=== PATIENT | female | born 1985 | race Caucasian/White ===

== ENCOUNTER → 2024-06-18 | Outpatient (CLI) | payer OTHER, SELFPAY ==
[2024-06-18 12:21] LABS: Absolute Lymphocyte Count 1.05 X10^3/uL (0.83-4.51); Absolute Neutrophil Count 7.1 X10^3/uL (2.0-7.7); Basophil# 0.08 X10^3/uL; Basophil% 0.9 % (0-1); Eosinophil# 0.08 X10^3/uL; Eosinophils% 0.9 % (0-5); Hematocrit 41.7 % (37-47); Hemoglobin 13.9 g/dL (12.0-15.0); Lymphocyte # 1.05 X10^3/ul (0.83-4.51); Lymphocyte % 11.6 % (19-41); Mean Corp Hgb Conc 33.3 g/dL (32-36); Mean Corpuscular Hgb 32.4 pg (27.0-32.0); Mean Corpuscular Volume 97.2 fL (81-99); Mean Platelet Vol. 10.4 fl (6.2-12.0); Monocyte# 0.73 X10^3/uL; Monocyte% 8.1 % (0-10); NRBC Flagged by Analyzer 0 % (0-5); Neutrophil # 7.06 X10^3/uL (2.7-7.7); Neutrophil % 78.1 % (47-70); Platelet Count 257 K/mm3 (150-450); RBC Distribution Width SD 45.9 fl (35.1-43.9); Red Blood Count 4.29 M/mm3 (4.2-5.4)
[2024-06-18 13:38] LABS: ALB/GLOB Ratio 1.8 RATIO (0.9-2.4); AST(SGOT) 15 U/L (<=31); Alanine Aminotransfer ALT/SGPT 18 U/L (<=34); Albumin, Serum 4.4 g/dL (3.5-5.0); Alkaline Phosphatase 53 U/L (35-104); Anion Gap 12 (5-15); BUN 14 mg/dL (4-19); BUN/Creat Ratio 17.1 RATIO (10-20); Calcium,Total 9.3 mg/dL (7.6-11.0); Carbon Dioxide 24.9 mmol/L (21.0-32.0); Chloride 105 mmol/L (98-108); Creatinine, Serum 0.82 mg/dL (0.70-1.20); EST Glomerular Filtration Rate 94 (>60); Globulin 2.4 g/dL (2.2-4.2); Glucose 74 mg/dL (70-99); Potassium 3.9 mmol/L (3.3-5.1); Protein, Total 6.8 g/dL (5.9-8.4); Sodium Level 142 mmol/L (133-145); Total Bilirubin 1.34 mg/dL (0.00-1.30)
== END | disposition home or self-care (01) ==
PROVIDERS: PCP Physician Assistant; Referring Provider Nurse Practitioner Family; Visit Provider Nurse Practitioner Family
DX: Z13.29 Encounter for screening for other suspected endocrine disorder (principal)
CPT/HCPCS: 36415; 80053; 84439; 84443; 85025; 87624; 88175; G0145

== ENCOUNTER → 2024-06-23 | Outpatient (CLI) | payer OTHER, SELFPAY ==
--- NOTE | 2024-06-23 16:30 | US_ITS ---
EXAM: Pelvic ultrasound CLINICAL HISTORY: Infertility COMPARISON: None available TECHNIQUE: Transabdominal and transvaginal scanning. FINDINGS: Uterus is unremarkable with no focal masses, anteverted, measuring 7.8 x 4.6 x 3.6 cm. Bilateral ovaries are normal with preserved symmetric vascular flow. No fluid in the cul-de-sac. Endometrium is unremarkable measuring 5 mm. Cervix is normal. No intrauterine device. Bladder is normal. US/Pelvic w/ Transvaginal IMPRESSION: No suspicious sonographic findings. Reading Location: [facility]
== END | disposition home or self-care (01) ==
LOC: US 16:26
PROVIDERS: PCP Physician Assistant; Referring Provider Nurse Practitioner Family; Visit Provider Nurse Practitioner Family
DX: Z31.9 Encounter for procreative management, unspecified (principal)
CPT/HCPCS: 76830; 76856

== ENCOUNTER → 2024-12-21 | Outpatient (CLI) | payer OTHER, SELFPAY ==
[2024-12-24 10:08] LABS: Chlamydia By Nucleic Acid AMP Negative (Negative); Gonococcus By Nucleic Acid AMP Negative (Negative)
[2024-12-25 16:09] LABS: HPV APTIMA, High Risk Negative (Negative)
== END | disposition home or self-care (01) ==
LOC: LABSPEC 16:16
PROVIDERS: PCP Physician Assistant; Referring Provider Obstetrics & Gynecology; Visit Provider Obstetrics & Gynecology
DX: O09.90 Supervision of high risk pregnancy, unspecified, unspecified trimester (principal); Z12.4 Encounter for screening for malignant neoplasm of cervix; Z3A.00 Weeks of gestation of pregnancy not specified
CPT/HCPCS: 87086; 87088; 87491; 87591; 87624; 88175; G0145

== ENCOUNTER 2024-12-25 09:04 | Outpatient (CLI) | payer OTHER, SELFPAY ==
[2024-12-25 09:21] VITALS: BP 103/48; PULSE 60; RESP 16; TEMP 36.3; O2SAT 100; BMI 26.2
--- OUTSIDE RECORDS SUMMARY | 2024-12-25 09:26 | XMS RPT_ITS | CCD ---
Author Organization [facility] Care Team Providers Care Water Aerobics Instructor Name Role Phone ANGEL PENNY Unavailable Unavailable PROVIDER, UNKNOWN Unavailable Unavailable GALNIMESH, ANGEL Unavailable Unavailable CONRAD THOMPSON Primary Care Unavailable MIMA ADAN Attending Unavailable CONRAD THOMPSON Primary Care Unavailable Unavailable Primary Care Provider Unavailabl e GALEHOUSE, ANGEL Mandujano Primary Care Unavailable GALOUSE, ANGEL Mandujano Primary Care Unavailable SHARYN CAT MD Attending Unavailable GALEHOUSE, ANGEL Mandujano Primary Care Unavailable COLIN STEIN MD Attending Unavaila COLIN Wlikins MD Attending Unavaila ble GALOUSE, ANGEL Mandujano Primary Care Unavailable GALEHOUSE, ANGEL Mandujano Primary Care Unavailable COLIN STEIN MD Attending Unavaila ble GALLAM, ANGEL Mandujano Primary Care Unavailable TERRANCE KAUFFMAN Referring Unavailable TERRANCE KAUFFMAN Attending Unavailable GALEHOUSE, ANGEL Mandujano Primary Care Unavailable SHARYN CAT MD Attending Unavailable [facility]HOUSE [facility][id number] Referring Unavailable ANGEL LEE~[id number], ANGEL ACEVEDO Attend ing Unavailable ANGEL LEE~[id number], ANGEL ACEVEDO Admitt ing Unavailable AA NO PCP, NO PCP Primary Care Unavailable [facility] Angel ADAMS Primary Care Provide r Patsy Candelario Attending Provider Angel Campbell Primary Care Provider Patsy Candelario Referring Provider [phone] Angel Penny PA-C [facility] Provider [place] PA, Angel Referring Provider Dr. Brandie Watt MD Attending Provider Brandie Watt Attending Unavailable Galehouse PA, Angel Primary Care Unavailable [place]alehouse PA, Angel Referring Unavailable Patsy Mcpherson Attending Unavailable [place]alehouse PA, Angel Referring Unavailable Lauren Butts Attending Unavailable [place]house PA, Angel Primary Care Unavailable Patsy Mcpherson Referring Unavailable Galehouse PA, Angel Primary Care Unavailable Patsy Mcpherson Attending Unavailable [place] PA, Angel Primary Care Unavailable Vande Maty, Aleena Attending Unavailabl e Galehouse PA, Angel Referring Unavailable [place]alehouse PA, Angel Primary Care Unavailable Aleena Troy Attending Unavailabl e Vande Velshruthi, Aleena Referring Unavailabl e Galehouse PA, Angel Primary Care Unavailable Lu Rutledge, Aleena Attending Unavailabl e Lu Rutledge, Aleena Referring Unavailabl e Patsy Mcpherson Attending Unavailable Patsy Mcpherson Referring Unavailable Galehouse PA, Angel Primary Care Unavailable Medications Current Medications Medication Drug Class(es) Dates Sig (Normalized) Sig (Original) cyclobenzaprine hydrochloride 10 mg oral tablet (1 source) Muscle Relaxant Start: 09-30-2024 take 1 tablet by mouth three times daily as needed for muscle spasms cyclobenzaprine (Flexeril) 10 mg tablet Indications: Acute right-sided low back pain with right-sided sciatica Take 1 tablet (10 mg) by mouth 3 times a day as needed for muscle spasms for up to 20 doses. 20 tablet 09/30/2024 Active Start: 09-30-2024 take 1 tablet by isela th three times daily as needed for muscle spasms cyclobenzaprine (Flexeril) 10 mg tablet Indications: Acute right-sided low back pain with right-sided sciatica Take 1 tablet (10 mg) by mouth 3 times a day as needed for muscle spasms for up to 20 doses. 20 tablet 09/30/2024 Active docosahexaenoic acid 200 mg oral capsule (3 sources) Start: 06-18-2024 Docosahexaenoic Acid ( Dha) 200 mg capsule Active mg PO June 18, 2024 12:00am 21 day ethinyl estradiol 0.549002 mg/hr / etonogestrel 0.005 mg/hr vaginal system (7 sources) Progestin, Estrogen End: 07-27-2023 etonogestreL-ethiny l estradioL (Nuvaring) 0.12-0.015 mg/24 hr vaginal ring Insert 1 each into the vagina every 28 (twenty-eight) days. 07/27/2023 Discontinued (Therapy completed) fluticasone propionate 0.05 mg/actuat metered dose nasal spray (1 source) Corticosteroid Start: 12-08-2024 take 50 ug nasal route once daily Fluticasone Propionate (Flonase Allergy Relief) 50 mcg/actuation spray,suspension Active 1 NMA INTRANASAL daily December 08, 2024 12:00am administer into each nostril meloxicam 15 mg oral tablet (2 sources) Nonsteroidal Anti-inflammatory Drug Start: 04-22-2023 End: 06-21-2023 take 1 tablet by mouth once daily meloxicam (Mobic) 15 mg tablet Indications: Femoral acetabular impingement Take 1 tablet (15 mg) by mouth once daily. 30 tablet 1 04/22/2023 06/21/2023 Active pantoprazole 20 mg delayed release oral tablet (12 sources) Proton Pump Inhibitor take 2 tablets by mouth once daily pantoprazole (ProtoNix) 20 mg EC tablet Take 2 tablets (40 mg) by mouth once daily. Active predniSONE 10 mg oral tablet (1 source) Start: 09-30-2024 predniSONE (Deltasone) 10 mg tablet Indications: Acute right-sided low back pain with right-sided sciatica Take 3 tabs by mouth on days 1-3; then take 2 tabs by mouth on days 4-6; then take 1 tab by mouth on days 7-9. 20 tablet 09/30/2024 Active Start: 09-30-2024 predniSONE (De ltasone) 10 mg tablet Indications: Acute right-sided low back pain with right-sided sciatica Take 3 tabs by mouth on days 1-3; then take 2 tabs by mouth on days 4-6; then take 1 tab by mouth on days 7-9. 20 tablet 09/30/2024 Active Completed/Discontinued Medications Medication Drug Class(es) Dates Sig (Normalized) Sig (Original) Lidocaine (4 sources) Antiarrhythmic, Amide Local Anesthetic Start: 06-12-2024 End: 06-12-2024 lidocaine (Xylocaine) 10 mg/mL (1 %) injection 1 mL Start: 06-12-2024 End: 06-12-2024 1 mL, injection, Once PRN Pr ocedure, Starting on Sat06/12/24 at 0937, For 1 dose Start: 06-10-2023 End: 06-10-2023 lidocaine (Xylocaine) 10 mg/ mL (1 %) injection 2 mL 1 ml triamcinolone acetonide 40 mg/ml injection (4 sources) Corticosteroid Start: 06-12-2024 End: 06-12-2024 triamcinolone acetonide (Kenalog-40) injection 40 mg Start: 06-12-2024 End: 06-12-2024 40 mg, intra-articular, Once PRN Procedure, Starting on Sat06/12/24 at 0937, For 1 dose Start: 06-10-2023 End: 06-10-2023 triamcinolone acetonide (Bismark alog-40) injection 80 mg Problems Active Problems Problem Classification Problem Date Documented Da te Episodic/Chronic Abdominal pain (2 sources) Unspecified abdominal pain; Translations: [Unspecified abdominal pain] Onset: Episodic Esophageal disorders (1 source) Gastroesophageal reflux disease; Translations: [Gastro-esophageal reflux disease without esophagitis] 12-08-2024 Chronic Esophageal disorders (1 source) Esophagitis; Translations: [Esophagitis] Onset: 3 Episodic Female infertility (1 source) Female infertility; Translations: [Female infertility, unspecified] 08-25-2024 Chronic Other complications of (1 source) Supervision of high risk , unspecified, unspecified trimester; Translations: [Supervision of high risk , unspecified, unspecified trimester] Onset: 5 Episodic Other connective tissue disease (1 source) Disorder of tendon; Translations: [Unspecified disorder of synovium and tendon, right thigh] 07-24-2023 Episodic Other connective tissue disease (4 sources) Lateral epicondylitis of right humerus; Translations: [Lateral epicondylitis, right elbow] 03-23-2024 Episodic Other gastrointestinal disorders (1 source) Dysphagia, unspecified; Translations: [Dysphagia, unspecified type] Onset: 3 Episodic Other liver diseases (3 sources) Increased bilirubin level; Translations: [Unspecified jaundice] 06-18-2024 Episodic Other non-traumatic joint disorders (1 source) Pain in right hip joint; Translations: [Pain in right hip] 04-22-2023 Episodic Other non-traumatic joint disorders (2 sources) Femoral acetabular impingement; Translations: [Other specified joint disorders, unspecified hip] 04-22-2023 Episodic Other non-traumatic joint disorders (4 sources) Pain in elbow; Translations: [Pain in right elbow] 03-20-2024 Episodic Other screening for suspected conditions (not mental disorders or infectious disease) (2 sources) Encounter for screening for malignant neoplasm of cervix; Translations: [Encounter for screening for other suspected endocrine disorder] Onset: 5 Episodic Spondylosis; intervertebral disc disorders; other back problems (2 sources) Acute back pain with sciatica; Translations: [Lumbago with sciatica, right side] 09-30-2024 Episodic Past or Other Problems Problem Classification Problem Date Documented Da te Episodic/Chronic Contraceptive and procreative management (6 sources) Patient encounter status; Translations: [Encounter for procreative management, unspecified] Onset: 06-29-2024 06-18-2024 Episodic Other connective tissue disease (11 sources) Trochanteric bursitis of left hip; Translations: [Trochanteric bursitis, left hip] Onset: 07-17-2023 06-10-2023 Episodic Unclassified (3 sources) Onset: 04-14-2024 04-14-2024 Results Test Name Value Interpretation Reference Range Facility Showroom Consultant Office Visit Reporton 12-21-2024 Showroom Consultant Office Visit Report [facility] [address], [address] [place] [address] OFFICE VISIT Date of Service: 12/21/24 MR#: [id number] Acct: [id number] Name: CORBY HENDRICKSON Rep #: [id number] : 1985 Provider: Dr. Aleena Solis DO Age/Sex: 39/F [place] [facility] [place] Status: Signed Intake Vital Signs 06/18/24 08:44 12/08/24 09:59 12/21/24 14:21 Height 4 ft 11 in 4 ft 11 in 4 ft 11 in Weight: 127 lb 6 oz BMI 25.7 BP 111/75 Intake Visit Reasons: *EST* NOB LMP 10/24, [place] 07/31 Chief Complaint: New OB Lathe Sander Required: No Is patient in pain?: No Allergies No Known Allergies Allergy (Verified 12/21/24 14:23) Medications ???Medication ???Instructions ???Recorded ???Confirmed ???Type docosahexaenoic acid 200 mg mg PO 06/18/24 12/21/24 History capsule ( DHA) fluticasone propionate 50 1 spray intranasal QDAY 12/08/24 0 12/21/24 History mcg/actuation nasal spray,suspension (Flonase Allergy Relief) famotidine 20 mg tablet (Pepcid) 20 mg PO BID #60 tabs 12/21/24 Rx ondansetron 4 mg disintegrating 4 mg PO Q6H PRN nausea and 5 12/21/24 Rx tablet vomiting #30 tabs Last Menstrual Period: 10/24/24 : No PFSH PFSH Medical History Seasonal allergies Former smoker Infertility, female Surgical History H/O LEEP History of carpal tunnel release Family History Mother Hypertension Father Hypertension Sister Diabetes Social History adopted: No household members: spouse number of children: 0 current occupational status: employed 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 current occupational exposures/hazards: No pets and animals: Yes (Not managing litterbox) pets and animals: cat(s) and dog(s) history of recent travel: Yes ( - October 2024) out of state: Yes out of country: No sexually active: Yes Smoking Status: Former smoker how long ago did patient quit smokin-12years ago second hand exposure: No quit status: quit date established alcohol intake: current alcohol intake frequency: holidays/special occasions only Alcohol type: hard liquor details: Not while substance use type: does not use diet: gluten free and lactose free well-balanced diet: daily or most days caffeine: Yes Type: coffee Number of servings: 1 eating out: rarely or never during the past year weight has: remained stable what type of physical activity do you participate in: running and other details: Training for [employer] nov frequency: 5-6 times per week armando/denominational: None seatbelt use: always do you feel safe at home: Yes additional social history: : Alexandre - [employer] History 1 Elective abortions Hx Para 0 Spontaneous abortions Hx # Term Pregnancies Ectopic pregnancies Hx # Pregnancies Multiple births # of living children HPI *EST* NOB LMP 10/24, [place]AV[place] 07/31 Details: CORBY HENDRICKSON is a 39 year old who presents for New OB visit. OB Visit [place] Calculator Estimated Delivery Date Method Current WG Current Estimate 07/31/25 LMP (Certain) 8w 2d Other Estimates 07/26/25 Ultrasound #1 9w 0d Estimated Due Date: 07/31/25 Expected Delivery Route/Plan Labor Preferences- CB/BF classes: [] labor support person: [] labor intervention preferences: [] pain management options preferred: [] cut cord/dad catch: [] : [] PP control planned: [] discussed possible routes of delivery and associated risks: [] special requests: [] Specific Issue/Plans Covid status: [] Flu vaccine: [] Tdap vaccine: [] Rhogam: [] LARC form signed: [] Problem list reviewed and updated with the most current plan of care details and appropriate orders placed. Relevant counseling for the gestational age provided. Continue routine care and follow up unless otherwise noted in visit notes/problem list details Initial Weight: Not Recorded Date -???-???-???-???-???-???- ???-???-???-???-???-???- EGA Weight BP Urine Prot -???-???-???-???-???-???- ???-???-???-???-???-???- Glucose FHR FuHt Pres Dilation -???-???-???-???-???-???- ???-???-???-???-???-???- Effaced St Visit Note 12/21/24 -???-???-???-???-???-???- ???-???-???-???-???-???- 8w 2d 127 lb 6 oz 111/75 -???-???-???-???-???-???- ???-???-???-???-???-???- 163 -???-???-???-???-???-???- ???-???-???-???-???-???- JV- CRL cons istent with LMP. unsure if desires NIPT. planning to run a marathon this weekend. Menstrual History Last Menstrual Period: 10/24/24 On hormonal BC at conception (more content not included)... Normal [facility] Office Visit Reporton 2024 Office Visit Report [facility] [address] [place] [address] OFFICE VISIT Date of Service: 12/08/24 MR#: [id number] Acct: [id number] Patient: CORBY HENDRICKSON Rep #: [id number] : 1985 Provider: Dr. Brandie wakefield MD Age/Sex: 39/F [place] [facility] [place] Status: Signed Intake Vital Signs 06/18/24 08:44 12/08/24 09:59 Height 4 ft 11 in 4 ft 11 in Weight: 131 lb 6 oz 128 lb 9 oz BMI 26.5 25.9 BP 116/77 112/68 Intake Visit Reasons: PNOB Vitals Education Allergies No Known Allergies Allergy (Verified 12/08/24 09:10) Medications ???Medication ???Instructions ???Recorded ???Confirmed ???Type docosahexaenoic acid 200 mg mg PO 06/18/24 12/08/24 History capsule ( DHA) fluticasone propionate 50 1 spray intranasal QDAY 12/08/24 0 12/08/24 History mcg/actuation nasal spray,suspension (Flonase Allergy Relief) Is last menstrual period known: Yes Post menopausal: No Patient : Yes Nurse's Note: Pt here for secondary amenorrhea. Vitals WNL. PNOB questions completed. Problem list, allergies, and medications updated. First trimester ACOG education completed. Assessment and Plan Assessment and Plan (1) Supervision of high-risk : Status: Acute Comment: , GAVIOTA 07/31/25, : Alexandre (2) : Status: Acute Comment: Discussed genetic/carrier testing - undecided (3) AMA (advanced maternal age) primigravida 35+: Status: Acute (4) GERD (gastroesophageal reflux disease): Status: Acute Comment: Self weaned off all meds Orders: Orders CBC W/Diff, Automated 12/08/24 O09.90 - Supervision of high risk , unspecified, unspecified trimester Type Screen 12/08/24 O09.90 - Supervision of high risk , unspecified, unspecified trimester Rubella IgG 12/08/24 O09.90 - Supervision of high risk , unspecified, unspecified trimester Hepatitis C Antibody 12/08/24 O09.90 - Supervision of high risk , unspecified, unspecified trimester Hepatitis B Surface Antigen 12/08/24 O09.90 - Supervision of high risk , unspecified, unspecified trimester Culture, Urine 12/08/24 O09.90 - Supervision of high risk , unspecified, unspecified trimester Syphilis Antibodies 12/08/24 O09.90 - Supervision of high risk , unspecified, unspecified trimester Chlamydia/GC CALIN aptima 12/08/24 O09.90 - Supervision of high risk , unspecified, unspecified trimester HIV 12/08/24 O09.90 - Supervision of high risk , unspecified, unspecified trimester PAP IG HPV APTIMA 16/18,45 12/08/24 Z12.4 - Encounter for screening for malignant neoplasm of cervix 12/12/24 0139 Date [facility]: Date (if applicable) CC: Normal [facility] CBC (INCLUDES DIFF/PLT)on Basophils (Bld) [#/Vol] 0.062 10*3/uL Normal 0-200 [facility] Comment on above: Performed By: #### 7 600, 6399, 72536 #### [facility] of [place] [address] County Engineer: Jeffery Ibarra MD Basophils/100 WBC (Bld) 1.1 % Normal [facility] Comment on above: Performed By: #### 7 600, 6399, 75586 #### [facility] [place] [address] County Engineer: Jeffery Ibarra MD Eosinophils (Bld) [#/Vol] 0.101 10*3/uL Normal 15-500 [facility] Comment on above: Performed By: #### 7 600, 6399, 86161 #### [facility] [place] [address] County Engineer: Jeffery Ibarra MD Eosinophils/100 WBC (Bld) 1.8 % Normal [facility] Comment on above: Performed By: #### 7 600, 6399, 12819 #### [facility] [place] [address] County Engineer: Jeffery Ibarra MD Erythrocyte distribution width (RBC) [Ratio] 12.5 % Normal 11.0-15.0 [facility] Comment on above: Performed By: #### 7 600, 6399, 53838 #### [facility] [place] [address] County Engineer: Jeffery Ibarra MD Hematocrit (Bld) [Volume fraction] 42.5 % Normal 35.0-45.0 [facility] Comment on above: Performed By: #### 7 600, 6399, 02179 #### [facility] of [address], [address] [place] [address] County Engineer: Jeffery Ibarra MD Hemoglobin (Bld) [Mass/Vol] 13.9 g/dL Normal 11.7-15.5 [facility] Comment on above: Performed By: #### 7 600, 6399, 61579 #### [facility] of [address], [address] [place] [address] County Engineer: Jeffery Ibarra MD Lymphocytes (Bld) [#/Vol] 1.215 10*3/uL Normal 850-3900 [facility] Comment on above: Performed By: #### 7 600, 6399, 18194 #### [facility] of [address], [address] [place] [address] County Engineer: Jeffery Ibarra MD Lymphocytes/100 WBC (Bld) 21.7 % Normal [facility] Comment on above: Performed By: #### 7 600, 6399, 70698 #### [facility] of [address], [address] [place] [address] County Engineer: Jeffery Ibarra MD MCH (RBC) [Entitic mass] 32.5 pg Normal 27.0-33.0 [facility] Comment on above: Performed By: #### 7 600, 6399, 99742 #### [facility] of [address], [address] [place] [address] County Engineer: Jeffery Ibarra MD MCHC (RBC) [Mass/Vol] 32.7 g/dL Normal 32.0-36.[address] [facility] Comment on above: Result Comment: For adults, a slight decrease in the calculated MCHC value (in the range of 30 to 32 g/dL) is most likely not clinically significant; however, it should be interpreted with caution in correlation with other red cell parameters and the patient's clinical condition. Performed By: #### 7 600, 6399, [id number] #### [facility] of [address], [address] [place] [address] County Engineer: Jeffery Ibarra MD MCV (RBC) [Entitic vol] 99.3 fL Normal 80.0-100.0 [facility] Comment on above: Performed By: #### 7 600, 6399, 22197 #### [facility] [place] [address] County Engineer: Jeffery Ibarra MD Monocytes (Bld) [#/Vol] 0.353 10*3/uL Normal 200-950 [facility] Comment on above: Performed By: #### 7 600, 6399, 66008 #### [facility] [place] [address] County Engineer: Jeffery Ibarra MD Monocytes/100 WBC (Bld) 6.3 % Normal [facility] Comment on above: Performed By: #### 7 600, 6399, 67242 #### [facility] [place] [address] County Engineer: Jeffery Ibarra MD Neutrophils (Bld) [#/Vol] 3.87 10*3/uL Normal 5654-1432 [facility] Comment on above: Performed By: #### 7 600, 6399, 78486 #### [facility] [place] [address] County Engineer: Jeffery Ibarra MD Neutrophils/100 WBC (Bld) 69.1 % Normal [facility] Comment on above: Performed By: #### 7 600, 6399, 82979 #### [facility] [place] [address] County Engineer: Jeffery Ibarra MD Platelet mean volume (Bld) [Entitic vol] 10.2 fL Normal 7.5-12.5 [facility] Comment on above: Performed By: #### 7 600, 6399, 04336 #### [facility] [place] [address] County Engineer: Jeffery Ibarra MD Platelets (Bld) [#/Vol] 223 10*3/uL Normal 140-400 [facility] Comment on above: Performed By: #### 7 600, 6399, 23837 #### [facility] [place] [address] County Engineer: Jeffery Ibarra MD RBC (Bld) [#/Vol] 4.28 10*6/uL Normal 3.80-5.10 [facility] Comment on above: Performed By: #### 7 600, 6399, 91264 #### [facility] [place] [address] County Engineer: Jeffery Ibarra MD WBC (Bld) [#/Vol] 5.6 10*3/uL Normal 3.8-10.8 [facility] Comment on above: Performed By: #### 7 600, 6399, 60596 #### [facility] [place] [address] County Engineer: Jeffery Ibarra MD COMPREHENSIVE METABOLIC PANE [facility] 10-28-2024 Albumin [Mass/Vol] 4.4 g/dL Normal 3.6-5.1 [facility] Comment on above: Performed By: #### 7 600, 6399, 58149 #### [facility] [place] [address] County Engineer: Jeffery Ibarra MD Albumin/Globulin [Mass ratio] 2.2 {ratio} Normal 1.0-2.5 [facility] Comment on above: Performed By: #### 7 600, 6399, 88299 #### [facility] [place] [address] County Engineer: Jeffery Ibarra MD ALP [Catalytic activity/Vol] 38 U/L Normal 31-125 [facility] Comment on above: Performed By: #### 7 600, 6399, 35796 #### [facility] [place] [address] County Engineer: Jeffery Ibarra MD ALT [Catalytic activity/Vol] 9 U/L Normal 6-29 [facility] Comment on above: Performed By: #### 7 600, 6399, 53917 #### [facility] of [address], [address] [place] [address] County Engineer: Jeffery Ibarra MD AST [Catalytic activity/Vol] 15 U/L Normal 10-30 [facility] Comment on above: Performed By: #### 7 600, 6399, 77396 #### [facility] of [address], [address] [place] [address] County Engineer: Jeffery Ibarra MD Bilirubin [Mass/Vol] 1.4 mg/dL High 0.2-1.2 [facility] Comment on above: Performed By: #### 7 600, 6399, 71384 #### [facility] of [address], [address] [place] [address] County Engineer: Jeffery Ibarra MD BUN/CREATININE RATIO SEE NOTE: Normal 6-22 [facility] Comment on above: Result Comment: Not Reported: BUN and Creatinine are within reference range. Performed By: #### 7 600, 6399, 02874 #### [facility] of [address], [address] [place] [address] County Engineer: Jeffery Ibarra MD Calcium [Mass/Vol] 9.1 mg/dL Normal 8.6-10.2 [facility] Comment on above: Performed By: #### 7 600, 6399, 74049 #### [facility] of [address], [address] [place] [address] County Engineer: Jeffery Ibarra MD Chloride [Moles/Vol] 106 mmol/L Normal 98-110 [facility] Comment on above: Performed By: #### 7 600, 6399, 17072 #### [facility] of [address], [address] [place] [address] County Engineer: Jeffery Ibarra MD CO2 [Moles/Vol] 25 mmol/L Normal 20-32 [facility] Comment on above: Performed By: #### 7 600, 6399, 97047 #### [facility] [place] [address] County Engineer: Jeffery Ibarra MD Creatinine [Mass/Vol] 0.80 mg/dL Normal 0.50-0.[address] [facility] Comment on above: Performed By: #### 7 600, 6399, 22035 #### [facility] [place] [address] County Engineer: Jeffery Ibarra MD GFR/1.73 sq M.predicted among non-blacks MDRD (S/P/Bld) [Vol rate/Area] 97 mL/min/{1.73_m2} Normal > OR = 60 [facility] Comment on above: Performed By: #### 7 600, 6399, 12352 #### [facility] [place] [address] County Engineer: Jeffery Ibarra MD Globulin (S) [Mass/Vol] 2.0 g/dL Normal 1.9-3.7 [facility] Comment on above: Performed By: #### 7 600, 6399, 38529 #### [facility] [place] [address] County Engineer: Jeffery Ibarra MD Glucose [Mass/Vol] 83 mg/dL Normal 65-99 [facility] Comment on above: Result Comment: Fasting reference interval Performed By: #### 7 600, 6399, 05123 #### [facility] [place] [address] County Engineer: Jeffery Ibarra MD Potassium [Moles/Vol] 4.0 mmol/L Normal 3.5-5.[address] [facility] Comment on above: Performed By: #### 7 600, 6399, 92179 #### [facility] [place] [address] County Engineer: Jeffery Ibarra MD Protein [Mass/Vol] 6.4 g/dL Normal 6.1-8.1 [facility] Comment on above: Performed By: #### 7 600, 6399, [id number] #### [facility] of [address], [address] [place] [address] County Engineer: Jeffery Ibarra MD Sodium [Moles/Vol] 141 mmol/L Normal 135-146 [facility] Comment on above: Performed By: #### 7 600, 6399, 13698 #### [facility] of [address], [address] [place] [address] County Engineer: Jeffery Ibarra MD Urea nitrogen [Mass/Vol] 12 mg/dL Normal 7-25 [facility] Comment on above: Performed By: #### 7 600, 6399, 29454 #### [facility] of [address], [address] [place] [address] County Engineer: Jeffery Ibarra MD FERRITINon 10-28-2024 Ferritin [Mass/Vol] 51 ng/mL Normal 16-154 [facility] Comment on above: Performed By: #### 7 600, 6399, 48152 #### [facility] of [address], [address] [place] [address] County Engineer: Jeffery Ibarra MD LIPID PANEL, STANDARDon 10-01 Cholesterol [Mass/Vol] 163 mg/dL Normal <200 [facility] Comment on above: Order Comment: FASTI NG:YES FASTING: YES Performed By: #### 7 600, 6399, 15836 #### [facility] of [address], [address] [place] [address] County Engineer: Jeffery Ibarra MD Cholesterol in HDL [Mass/Vol] 58 mg/dL Normal > OR = 50 [facility] Comment on above: Order Comment: FASTI NG:YES FASTING: YES Performed By: #### 7 600, 6399, 14315 #### [facility] of [place] [address] County Engineer: Jeffery Ibarra MD Cholesterol in LDL [Mass/Vol] 90 mg/dL Normal [facility] Comment on above: Order Comment: FASTI NG:YES FASTING: YES Result Comment: Refe rence range: <100 Desirable range <100 mg/dL for primary prevention; <70 mg/dL for patients with CHD or diabetic patients with > or = 2 CHD risk factors. LDL-C is now calculated using the Gia calculation, which is a validated novel method providing better accuracy than the Friedewald equation in the estimation of LDL-C. Sea SS et al. CRISTI. 2013;310(19): 0994-1892 (http://JumpSeat.LiveRamp/faq/MZQ453) Performed By: #### 7 600, 6399, 77199 #### [facility] [address], [address] [place] [address] County Engineer: Jeffery Ibarra MD Cholesterol.total/Cho lesterol in HDL [Mass ratio] 2.8 {ratio} Normal <5.0 [facility] Comment on above: Order Comment: FASTI NG:YES FASTING: YES Performed By: #### 7 600, 6399, 08752 #### [facility] [address], [address] [place] [address] County Engineer: Jeffery Ibarra MD NON HDL CHOLESTEROL 105 mg/dL (calc) Normal <130 [facility] Comment on above: Order Comment: FASTI NG:YES FASTING: YES Result Comment: For patients with diabetes plus 1 major ASCVD risk factor, treating to a non-HDL-C goal of <100 mg/dL (LDL-C of <70 mg/dL) is considered a therapeutic option. Performed By: #### 7 600, 6399, 13304 #### [facility] [address], [address] [place] [address] County Engineer: Jeffery Ibarra MD Triglyceride [Mass/Vol] 63 mg/dL Normal <150 [facility] Comment on above: Order Comment: FASTI NG:YES FASTING: YES Performed By: #### 7 600, 6399, 55237 #### [facility] [address], [address] [place] [address] County Engineer: Jeffery Ibarra MD HCG ( test) Ql (U)o n 09-30-2024 Interpretation and review of laboratory results Normal [facility] Work Phone: Preg Test, Ur Negative Negative [facility] Work Phone: [facility] Work Phone: POCT UA Automated manually r esultedOrdered By: Kathy Lama on 09-30-2024 Appearance (U) Clear Clear [facility] Glucose Test strip (U) [Mass/Vol] Negative NEGATIVE mg/dl [facility] Hemoglobin Ql (U) Negative NEGATIVE [facility] Interpretation and review of laboratory results Normal [facility] Leukocyte esterase Test strip Ql (U) Negative NEGATIVE [facility] Nitrite Ql (U) Negative NEGATIVE [facility] pH (U) 7.0 [pH] No Reference Range Established [facility] POC Bilirubin, Urine Negative NEGATIVE [facility] POC Color, Urine Yellow Straw, Yellow, Light-Yellow [facility] POC Ketones, Urine Negative NEGATIVE mg/dl [facility] POC Protein, Urine Negative NEGATIVE mg/dl [facility] POC Specific Hegins, Urine 1.010 1.005 - 1.035 [facility] POC Urobilinogen, Urine 0.2 0.2, 1.0 EU/DL [facility] XR Lumbar spine 2 or 3 Views on 09-30-2024 No acute pathologic findings are identified. MACRO: none Signed by: Bimal Christie 09/30/2024 9:13 AM Dictation workstation: [id number] [facility] Interpreted By: Bimal Juan, STUDY: XR LUMBAR SPINE 2-3 VIEWS; 09/30/2024 9:10 am INDICATION: Signs/Symptoms:lbp. COMPARISON: None. ACCESSION NUMBER(S): [id number] ORDERING CLINICIAN: YOANDY RAINEY TECHNIQUE: Lumbar spine two views FINDINGS: No fractures or destructive lesions are identified. Disc spaces are maintained in height. Vertebral alignment is within normal limits. Pedicles are intact. [facility] Bimal Christie MD - 09/30/2024 Interpreted By: Bimal Christie, STUDY: XR LUMBAR SPINE 2-3 VIEWS; 09/30/2024 9:10 am INDICATION: Signs/Symptoms:lbp. COMPARISON: None. ACCESSION NUMBER(S): [id number] ORDERING CLINICIAN: YOANDY RAINEY TECHNIQUE: Lumbar spine two views FINDINGS: No fractures or destructive lesions are identified. Disc spaces are maintained in height. Vertebral alignment is within normal limits. Pedicles are intact. IMPRESSION: No acute pathologic findings are identified. MACRO: none Signed by: Bimal Christie 09/30/2024 9:13 AM Dictation workstation: [id number] [facility] Work Phone: Radiology Study observation (narrative) [facility] Work Phone: XR Lumbar spine 2 or 3 Views Ordered By: Bimal Christie on 09-30-2024 [facility] Work Phone: PAP IG HPV APTIMA 16/18,45on 07-13-2024 ORDER Normal [facility] Comment on above: Order Comment: Clini karely Info: ANNUAL - Non Collection Vial: Thin Prep Vial ECHOCARDIOGRAPHY RADIOLOGY TECHNOLOGIST Source: CERVICAL/ENDOCERVICAL Date LMP/Menopause: LMP Collection Techniques: BRUSH/SPATULA Result Comment: IGP, Aptima HPV, rfx 16/18,45 Interpretation: NEGATIVE FOR INTRAEPITHELIAL LESION AND MALIGNANCY Specimen Adequacy: Satisfactory for evaluation. Endocervical and/or squamous metaplastic cells (endocervical component) are present. Comments: The pap smear is a screening test designated to aid in the detection of pre-malignant and malignant conditions of the uterine cervix. It is not a diagnostic procedure and should not be used as the sole means of detecting cervical cancer. Both false-positive and false-negative reports do occur. This liquid based ThinPrep(R) pap test was screened with the use of an image guided system. Performed by Elizabeth Smith, [employer] (ASCP) This nucleic acid amplification test detects fourteen high-risk HPV types (16,18,31,33,35,39,45,51,52,56,58,59,66,68) without differentiation. HPV Results: HPV Aptima :Negative HPV Genotype Reflex Criteria not met, HPV Genotype not performed. TESTING PERFORMED AT [facility]. ORIGINAL REPORT ON FILE IN LAB CONTAINS ADDITIONAL TEST SITE INFORMATION. Performed By: #### L 7400.0280 #### [facility] [address] [place], [address] Pelvic w/ Transvaginalon Pelvic w/ Transvaginal [facility] [address] [place] [address] Pelvic w/ Transvaginal MR#: [id number] Acct: [id number] Name: CORBY HENDRICKSON Rep #: [id number] : 1985 F 39 From: Kodi Ocampo MD PCP: BRYAN Daley Status: REG CLI Study: Pelvic w/ Transvaginal Date of Exam: 06/23/24 Exam# [id number] Ordering Dr: Patsy Mcpherson EXAM: Pelvic ultrasound CLINICAL HISTORY: Infertility COMPARISON: None available TECHNIQUE: Transabdominal and transvaginal scanning. FINDINGS: Uterus is unremarkable with no focal masses, anteverted, measuring 7.8 x 4.6 x 3.6 cm. Bilateral ovaries are normal with preserved symmetric vascular flow. No fluid in the cul-de-sac. Endometrium is unremarkable measuring 5 mm. Cervix is normal. No intrauterine device. Bladder is normal. US/Pelvic w/ Transvaginal IMPRESSION: No suspicious sonographic findings. Reading Location: [facility] [address] CC: ALEA Mcpherson; BRYAN Daley Voice Writing Reporter: Signed Normal [facility] Absolute neutrophil countOrd ered By: Patsy Mcpherson on 06-18-2024 Neutrophils (Bld) [#/Vol] 7.1 10*3/uL 2.0-7.7 [facility] Anion gap in Serum or Plasma Ordered By: Patsy Mcpherson on 06-18-2024 Anion gap [Moles/Vol] 12 mmol/L 5- [facility] BUN/creatinine ratioOrdered By: Patsy Mcpherson on 06-18-2024 Urea nitrogen/Creatinine [Mass ratio] 17.1 mg/mg - [facility] Basophil percentageOrdered B y: Patsy Mcpherson on 06-18-2024 Basophils/100 WBC (Bld) 0.9 % 0-1 [facility] Bilirubin, totalOrdered By: Patsy Mcpherson on 06-18-2024 Bilirubin [Mass/Vol] 1.34 mg/dL High 0.00-1.30 [facility] CBC W/Diff, Automatedon 05-31-2024 Absolute Lymph 1.05 X10 3/uL Normal 0.83-4.51 [facility] Comment on above: Performed By: #### L 501.9520, L506.0400, L100.0100, L500.4050 #### [facility] [address] [place], [address] Absolute Neut 7.1 X10 3/uL Normal 2.0-7.7 [facility] Comment on above: Performed By: #### L 501.9520, L506.0400, L100.0100, L500.4050 #### [facility] [address] [place], [address] Basophils/100 WBC (Bld) 0.9 % Normal 0-1 [facility] Comment on above: Performed By: #### L 501.9520, L506.0400, L100.0100, L500.4050 #### [facility] [address] [place], [address] Eosinophils/100 WBC (Bld) 0.9 % Normal 0-5 [facility] Comment on above: Performed By: #### L 501.9520, L506.0400, L100.0100, L500.4050 #### [facility] [address] [place], [address] Erythrocyte distribution width (RBC) [Ratio] 13.0 % Normal 11.6-14.6 [facility] Comment on above: Performed By: #### L 501.9520, L506.0400, L100.0100, L500.4050 #### [facility] [address] [place], [address] Hematocrit (Bld) [Volume fraction] 41.7 % Normal 37-47 [facility] Comment on above: Performed By: #### L 501.9520, L506.0400, L100.0100, L500.4050 #### [facility] [address] [place], [address] Hemoglobin (Bld) [Mass/Vol] 13.9 g/dL Normal 12.0-15.0 [facility] Comment on above: Performed By: #### L 501.9520, L506.0400, L100.0100, L500.4050 #### [facility] [address] [place], [address] IG% 0.400 Normal 0.0-0.9 [facility] Comment on above: Result Comment: IG% - Immature Granulocytes (promyelocytes, myelocytes and metamyelocytes) > 1% indicates that a LEFT SHIFT is Present. Performed By: #### L 501.9520, L506.0400, L100.0100, L500.4050 #### [facility] [address] [place], [address] Lymphocytes/100 WBC (Bld) 11.6 % Low 19-41 [facility] Comment on above: Performed By: #### L 501.9520, L506.0400, L100.0100, L500.4050 #### [facility] [address] [place], [address] MCH (RBC) [Entitic mass] 32.4 pg High 27.0-32.0 [facility] Comment on above: Performed By: #### L 501.9520, L506.0400, L100.0100, L500.4050 #### [facility] [address] [place], [address] MCHC (RBC) [Mass/Vol] 33.3 g/dL Normal 32-36 [facility] Comment on above: Performed By: #### L 501.9520, L506.0400, L100.0100, L500.4050 #### [facility] [address] [place], [address] MCV (RBC) [Entitic vol] 97.2 fL Normal 81-99 [facility] Comment on above: Performed By: #### L 501.9520, L506.0400, L100.0100, L500.4050 #### [facility] [address] [place], [address] Monocytes/100 WBC (Bld) 8.1 % Normal 0-10 [facility] Comment on above: Performed By: #### L 501.9520, L506.0400, L100.0100, L500.4050 #### [facility] [address] [place], [address] Neutrophils/100 WBC (Bld) 78.1 % High 47-70 [facility] Comment on above: Performed By: #### L 501.9520, L506.0400, L100.0100, L500.4050 #### [facility] [address] [place], [address] Nucleated RBC (Bld) [#/Vol] 0 10*3/uL Normal 0-5 [facility] Comment on above: Performed By: #### L 501.9520, L506.0400, L100.0100, L500.4050 #### [facility] [address] [place], [address] Platelet mean volume (Bld) [Entitic vol] 10.4 fL Normal 6.2-12.0 [facility] Comment on above: Performed By: #### L 501.9520, L506.0400, L100.0100, L500.4050 #### [facility] [address] [place], [address] Platelets (Bld) [#/Vol] 257 10*3/uL Normal 150-450 [facility] Comment on above: Performed By: #### L 501.9520, L506.0400, L100.0100, L500.4050 #### [facility] [address] [place], [address] RBC (Bld) [#/Vol] 4.29 10*6/uL Normal 4.2-5.[address] [facility] Comment on above: Performed By: #### L 501.9520, L506.0400, L100.0100, L500.4050 #### [facility] [address] [place], [address] RDW SD 45.9 fl High 35.1-43.9 [facility] Comment on above: Performed By: #### L 501.9520, L506.0400, L100.0100, L500.4050 #### [facility] [address] [place], [address] WBC (Bld) [#/Vol] 9.0 10*3/uL Normal 4.4-11.0 [facility] Comment on above: Performed By: #### L 501.9520, L506.0400, L100.0100, L500.4050 #### [facility] [address] [place], [address] Carbon dioxide, total [Moles /volume] in Central venous bloodOrdered By: Patsy Mcpherson on 06-18-2024 CO2 [Moles/Vol] 24.9 mmol/L 21.0-32.0 [facility] Chloride assayOrdered By: Addie Mcpherson on 06-18-2024 Chloride [Moles/Vol] 105 mmol/L 98-108 [facility] Comprehensive Metabolic Prof ilon 06-18-2024 Albumin [Mass/Vol] 4.4 g/dL Normal 3.5-5.0 [facility] Comment on above: Performed By: #### L 501.9520, L506.0400, L100.0100, L500.4050 #### [facility] [address] [place], [address] Albumin/Globulin [Mass ratio] 1.8 {ratio} Normal 0.9-2.4 [facility] Comment on above: Performed By: #### L 501.9520, L506.0400, L100.0100, L500.4050 #### [facility] [address] [place], [address] ALK PHOS 53 U/L Normal 35-104 [facility] Comment on above: Performed By: #### L 501.9520, L506.0400, L100.0100, L500.4050 #### [facility] [address] [place], [address] ALT [Catalytic activity/Vol] 18 U/L Normal <=34 [facility] Comment on above: Performed By: #### L 501.9520, L506.0400, L100.0100, L500.4050 #### [facility] [address] [place], [address] AST [Catalytic activity/Vol] 15 U/L Normal <=31 [facility] Comment on above: Performed By: #### L 501.9520, L506.0400, L100.0100, L500.4050 #### [facility] [address] [place], [address] Bilirubin [Mass/Vol] 1.34 mg/dL High 0.00-1.30 [facility] Comment on above: Performed By: #### L 501.9520, L506.0400, L100.0100, L500.4050 #### [facility] [address] [place], [address] BUN/CRE 17.1 RATIO Normal 10-20 [facility] Comment on above: Performed By: #### L 501.9520, L506.0400, L100.0100, L500.4050 #### [facility] [address] [place], [address] Calcium [Mass/Vol] 9.3 mg/dL Normal 7.6-11.0 [facility] Comment on above: Performed By: #### L 501.9520, L506.0400, L100.0100, L500.4050 #### [facility] [address] [place], [address] Chloride [Moles/Vol] 105 mmol/L Normal 98-108 [facility] Comment on above: Performed By: #### L 501.9520, L506.0400, L100.0100, L500.4050 #### [facility] [address] [place], [address] CO2 [Moles/Vol] 24.9 mmol/L Normal 21.0-32.0 [facility] Comment on above: Performed By: #### L 501.9520, L506.0400, L100.0100, L500.4050 #### [facility] [address] [place], [address] Creatinine [Mass/Vol] 0.82 mg/dL Normal 0.70-1.20 [facility] Comment on above: Performed By: #### L 501.9520, L506.0400, L100.0100, L500.4050 #### [facility] [address] [place], [address] GAP 12 Normal 5-15 [facility] Comment on above: Performed By: #### L 501.9520, L506.0400, L100.0100, L500.4050 #### [facility] [address] [place], [address] GFR/1.73 sq M.predicted among non-blacks MDRD (S/P/Bld) [Vol rate/Area] 94 mL/min/{1.73_m2} Normal >60 [facility] Comment on above: Result Comment: mL/m in/1.73m2 CKD-EPI Creatinine Equation (2020) Performed By: #### L 501.9520, L506.0400, L100.0100, L500.4050 #### [facility] [address] [place], [address] Globulin (S) [Mass/Vol] 2.4 g/dL Normal 2.2-4.2 [facility] Comment on above: Performed By: #### L 501.9520, L506.0400, L100.0100, L500.4050 #### [facility] [address] [place], [address] Glucose [Mass/Vol] 74 mg/dL Normal 70-99 [facility] Comment on above: Performed By: #### L 501.9520, L506.0400, L100.0100, L500.4050 #### [facility] [address] [place], [address] Potassium [Moles/Vol] 3.9 mmol/L Normal 3.3-5.1 [facility] Comment on above: Performed By: #### L 501.9520, L506.0400, L100.0100, L500.4050 #### [facility] [address] [place], [address] Sodium [Moles/Vol] 142 mmol/L Normal 133-145 [facility] Comment on above: Performed By: #### L 501.9520, L506.0400, L100.0100, L500.4050 #### [facility] [address] [place], [address] T PROT 6.8 g/dL Normal 5.9-8.4 [facility] Comment on above: Performed By: #### L 501.9520, L506.0400, L100.0100, L500.4050 #### [facility] [address] [place], [address] Urea nitrogen [Mass/Vol] 14 mg/dL Normal 4-19 [facility] Comment on above: Performed By: #### L 501.9520, L506.0400, L100.0100, L500.4050 #### [facility] [address] [place], [address] Eosinophil percentageOrdered By: Patsy Mcpherson on 06-18-2024 Eosinophils/100 WBC (Bld) 0.9 % 0-5 [facility] Erythrocyte distribution wid th ratioOrdered By: Patsy Mcpherson on 06-18-2024 Erythrocyte distribution width (RBC) [Ratio] 13.0 % 11.6-14.6 [facility] Erythrocyte distribution wid th standard deviationOrdered By: Patsy Mcpherson on 06-18-2024 Erythrocyte distribution width (RBC) [Entitic vol] 45.9 fL High 35.1-43.9 [facility] GFR/1.73 sq M.predicted henry g non-blacks MDRD (S/P/Bld) [Vol rate/Area]Ordered By: Patsy Mcpherson on 06-18-2024 Estimated GFR (MDRD) Non-Af Amer 94 >60 [facility] Comment on above: mL/min/1.73m2 CKD-EP I Creatinine Equation (2020) Hematocrit Auto (Bld) [Volum e fraction]Ordered By: Patsy Mcpherson on 06-18-2024 Hematocrit (Bld) [Volume fraction] 41.7 % 37-47 [facility] Hemoglobin measurementOrdere d By: Patsy Mcpherson on 06-18-2024 Hemoglobin (Bld) [Mass/Vol] 13.9 g/dL 12.0-15.0 [facility] Immature granulocytes/100 WB C Auto (Bld)Ordered By: Patsy Mcpherson on 06-18-2024 Immature granulocytes/100 WBC (Bld) 0.400 % 0.0-0.9 [facility] Comment on above: IG% - Immature Granu locytes (promyelocytes, myelocytes and metamyelocytes) > 1% indicates that a LEFT SHIFT is Present. Laboratory - Chemistry and C hemistry - challengeOrdered By: Patsy Mcpherson on 06-18-2024 AST [Catalytic activity/Vol] 15 U/L <32 [facility] Lymphocytes Auto (Unsp spec) [#/Vol]Ordered By: Patsy Mcpherson on 06-18-2024 Lymphocytes (Bld) [#/Vol] 1.05 10*3/uL 0.83-4.51 [facility] Lymphocytes/100 WBC Auto (Un sp spec)Ordered By: Patsy Mcpherson on 06-18-2024 Lymphocytes/100 WBC (Bld) 11.6 % Low 19-41 [facility] MCV (mean corpuscular volume ) determinationOrdered By: Patsy Mcpherson on 06-18-2024 MCV (RBC) [Entitic vol] 97.2 fL 81-99 [facility] Mean corpuscular hemoglobin (MCH) determinationOrdered By: Patsy Mcpherson on 06-18-2024 MCH (RBC) [Entitic mass] 32.4 pg High 27.0-32.0 [facility] Mean corpuscular hemoglobin concentration (MCHC) determinationOrdered By: Ptasy Mcpherson on 06-18-2024 MCHC (RBC) [Mass/Vol] 33.3 g/dL 32-36 [facility] Mean platelet volume determi nationOrdered By: Patsy Mcpherson on 06-18-2024 Platelet mean volume (Bld) [Entitic vol] 10.4 fL 6.2-12.0 [facility] Monocyte percentageOrdered B y: Patsy Mcpherson on 06-18-2024 Monocytes/100 WBC (Bld) 8.1 % 0-10 [facility] Neutrophil percentageOrdered By: Patsy Mcpherson on 06-18-2024 Neutrophils/100 WBC (Bld) 78.1 % High 47-70 [facility] Nucleated red blood cell per centageOrdered By: Patsy Mcpherson on 06-18-2024 Nucleated RBC/100 WBC (Bld) [Ratio] 0 % 0-5 [facility] Showroom Consultant Office Visit Reporton 06-18-2024 Showroom Consultant Office Visit Report [facility] [address], [address] [place] [address] OFFICE VISIT Date of Service: 06/18/24 MR#: [id number] Acct: [id number] Name: CORBY HENDRICKSON Rep #: [id number] : 1985 Provider: ALEA Moore Age/Sex: 39/F Location: [facility] Status: Signed Intake Vital Signs 06/18/24 08:44 Height 4 ft 11 in Weight: 131 lb 6 oz BMI 26.5 BP 116/77 Intake 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) Lathe Sander Required: No Is patient in pain?: No Allergies No Known Allergies Allergy (Verified 06/18/24 08:38) Medications ???Medication ???Instructions ???Recorded ???Confirmed ???Type docosahexaenoic acid 200 mg mg PO 06/18/24 06/18/24 History capsule ( DHA) Is last menstrual period known: Yes Last Menstrual Period: 06/11/24 Post menopausal: No Patient : No : No Control Method: none PFSH Surgical History (Updated 06/18/24 @ 08:45 by Jessica Fernández) H/O LEEP History of carpal tunnel release Family History (Updated 06/18/24 @ 08:40 by Jessica Fernández) Mother Hypertension Father Hypertension Social History (Updated 06/18/24 @ 08:42 by Jessica Fernández) adopted: No number of children: 0 current occupational status: employed 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 sexually active: Yes Smoking Status: Never smoker alcohol intake: current alcohol intake frequency: holidays/special occasions only Alcohol type: hard liquor substance use type: does not use what type of physical activity do you participate in: running frequency: 5-6 times per week seatbelt use: always do you feel safe at home: Yes additional social history: - Alexandre History 0 Elective abortions Hx Para 0 Spontaneous abortions Hx # Term Pregnancies Ectopic pregnancies Hx # Pregnancies Multiple births # of living children HPI Encounter for routine gynecological examination Details: CORBY HENDRICKSON is a 39 year old who presents for annual exam. She reports no issues or concerns today other than she and her are trying to conceive. They have been trying for 5 months thus far. Last PAP: 2021; normal per pt; completed with [place] (PCP) History of abnormal PAP: 2007 per pt; had LEEP--clear at that time. Last mammogram: due at 41 History of abnormal mammogram: no Colon cancer screening: age 46 Other preventative health care screenings: Angel Penny- PCP Female Reproductive History Last Menstrual Period: 06/11/24 Cycle Length: 21-35 Bleeding Duration: 3 Questions: metorrhagia: No, sexually active: Yes, dyspareunia: No and PCB: No ROS Const Constitutional: Denies chills, fatigue, fever(s), headache(s) or weight loss Eyes Eyes: Denies change in vision ENT ENT: Denies dizziness Resp Resp: Denies cough GI GI: Denies abdominal pain, constipation or nausea : Denies difficulty voiding, dysuria, hematuria, pelvic pain, prolapse symptoms, urinary incontinence, vaginal discharge, vaginal dryness, vaginal odor or vaginal pruritus Skin Skin/Breast: Denies alopecia or rash Neuro Neuro: Denies dizziness Psych Psych: Denies anxiety or depression Endo Endo: Denies cold intolerance, excessive sweating or heat intolerance Exam Const General: cooperative, healthy appearing, comfortable, no acute distress, well groomed and well hydrated Nutritional Appearance: well nourished Orientation: alert, awake and oriented x3 HENMT Head: normal to inspection and normocephalic Ears: hearing grossly normal bilaterally and external ears normal Nose: external nose normal Face and sinus: normal facial exam Eyes General: appearance normal, both eyes and all related structures Neck Neck: normal visual inspection, full ROM and no lymphadenopathy Thyroid: thyroid normal Chest Chest palpation inspection: normal inspection of the chest Breast inspection: normal inspection of the breasts and normal inspection of the axillae Breast palpation: normal palpation of the breasts, normal palpation of the axillae and no axillary lymphadenopathy Resp Effort Inspection: normal respiratory effort, able to speak in complete sentences and symmetric chest movement GI Inspection: normal to inspection Palpation: soft and no hepatosplenomegaly General: bladder normal to palpation External Female Exam: normal external appearance and normal appearance of the urethra Urethra: normal appearance of the urethra Speculum Exam - Vagina: normal appearance of the vagina, normal vaginal discharge, no lesions and nontender Speculum Exam - Cervix: normal appearance of the cervix, no lesions and no masses Bimanual Exam- Vagina Uterus: normal bimanual exam, uterine size normal, bladder normal to palpation, normal palpation and non-tender (more content not included)... Normal [facility] Platelet countOrdered By: Addie Mcpherson on 06-18-2024 Platelets (Bld) [#/Vol] 257 10*3/uL 150-450 [facility] Potassium (Unsp spec) [Mass/ Vol]Ordered By: Patsy Mcpherson on 06-18-2024 Potassium [Moles/Vol] 3.9 mmol/L 3.3-5.1 [facility] RBC Auto (Bld) [#/Vol]Ordere d By: Patsy Mcpherson on 06-18-2024 RBC (Bld) [#/Vol] 4.29 10*6/uL 4.2-5.[address] [facility] Serum creatinine measurement (mass/volume)Ordered By: Patsy Mcpherson on 06-18-2024 Creatinine [Mass/Vol] 0.82 mg/dL 0.70-1.20 [facility] Serum globulin measurementOr dered By: Patsy Mcpherson on 06-18-2024 Globulin (S) [Mass/Vol] 2.4 g/dL 2.2-4.2 [facility] Serum glucose measurement (m ass/volume)Ordered By: Patsy Mcpherson on 06-18-2024 Glucose [Mass/Vol] 74 mg/dL 70-99 [facility] Serum or plasma alanine gutierrez otransferase (ALT) measurementOrdered By: Patsy Mcpherson on 06-18-2024 ALT [Catalytic activity/Vol] 18 U/L <35 [facility] Serum or plasma albumin aishwarya urement (mass/volume)Ordered By: Patsy Mcpherson on 06-18-2024 Albumin [Mass/Vol] 4.4 g/dL 3.5-5.0 [facility] Serum or plasma albumin/glob ulin mass ratioOrdered By: Patsy Mcpherson on 06-18-2024 Albumin/Globulin [Mass ratio] 1.8 {ratio} 0.9-2.4 [facility] Serum or plasma alkaline tico sphatase measurementOrdered By: Patsy Mcpherson on 06-18-2024 ALP [Catalytic activity/Vol] 53 U/L 35-104 [facility] Serum or plasma calcium asihwarya urement (mass/volume)Ordered By: Patsy Mcpherson on 06-18-2024 Calcium [Mass/Vol] 9.3 mg/dL 7.6-11.0 [facility] Serum or plasma urea nitroge n measurement (mass/volume)Ordered By: Patsy Mcpherson on 06-18-2024 Urea nitrogen [Mass/Vol] 14 mg/dL 4-19 [facility] Sodium levelOrdered By: Rere Mcpherson on 06-18-2024 Sodium [Moles/Vol] 142 mmol/L 133-145 [facility] T4 Free Directon 06-18-2024 T4 FREE DIRECT 1.30 ng/dL Normal 0.76-1.46 [facility] Comment on above: Performed By: #### L 501.9520, L506.0400, L100.0100, L500.4050 #### [facility] [address] [place], [address] T4 freeOrdered By: Patsy holman on 06-18-2024 Free T4 [Mass/Vol] 1.30 ng/dL 0.76-1.46 [facility] TSH DL <= 0.005 mIU/L QnOrde red By: Patsy Mcpherson on 06-18-2024 Thyroid Stimulating Hormone (TSH) 2.240 uIU/mL 0.300-4.200 [facility] Thyroid Stim Hormone (TSH)on 06-18-2024 TSH 2.240 uIU/mL Normal 0.300-4.200 [facility] Comment on above: Performed By: #### L 501.9520, L506.0400, L100.0100, L500.4050 #### [facility] [address] [place], [address] Total proteinOrdered By: Vic Mcpherson on 06-18-2024 Protein [Mass/Vol] 6.8 g/dL 5.9-8.4 [facility] White blood cell (WBC) count Ordered By: Patsy Mcpherson on 06-18-2024 WBC (Bld) [#/Vol] 9.0 10*3/uL 4.4-11.0 [facility] Hand / UE Inj/Asp: R elbowon 06-12-2024 Linden Thomason MD 06/12/2024 9:39 AM Hand / UE Inj/Asp: R elbow for lateral epicondylitis on 06/12/2024 9:37 AM Indications: therapeutic and pain Details: 25 G needle, ultrasound-guided lateral approach Medications: 40 mg triamcinolone acetonide 40 mg/mL; 1 mL lidocaine 10 mg/mL (1 %) Outcome: tolerated well, no immediate complications Procedure, treatment alternatives, risks and benefits explained, specific risks discussed. Consent was given by the patient. Immediately prior to procedure a time out was called to verify the correct patient, procedure, equipment, account support rep and site/side marked as required. Patient was prepped and draped in the usual sterile fashion. [facility] Work Phone: [facility] Work Phone: US Abdomenon 06-12-2024 These images are not reportable by radiology and will not be interpreted by Radiologists. IMAGING XR Elbow - right 3 Viewson 1 05-22-2023 Small intra-articula r ossific bodies volarly versus remote avulsion injury to the coronoid process.. MACRO: None Signed by: Paul Fuentes 03/21/2024 12:23 PM Dictation workstation: [id number] MMODAL Interpreted By: Paul Eng, STUDY: XR ELBOW RIGHT 3+ VIEWS; ; 03/20/2024 3:25 pm INDICATION: Signs/Symptoms:PAIN. ,M25.521 Pain in right elbow COMPARISON: None. ACCESSION NUMBER(S): [id number] ORDERING CLINICIAN: LINDEN THOMASON FINDINGS: Right elbow, five views Small ossific fragment at the volar aspect of the elbow. There is no fracture. There is no dislocation. There are no degenerative changes. There is no lytic or sclerotic lesion. There is no soft tissue abnormality seen. There is no effusion MMODAL Paul Fuentes MD - 03/21/2024 Interpreted By: Paul Fuentes, STUDY: XR ELBOW RIGHT 3+ VIEWS; ; 03/20/2024 3:25 pm INDICATION: Signs/Symptoms:PAIN. ,M25.521 Pain in right elbow COMPARISON: None. ACCESSION NUMBER(S): [id number] ORDERING CLINICIAN: LINDEN THOMASON FINDINGS: Right elbow, five views Small ossific fragment at the volar aspect of the elbow. There is no fracture. There is no dislocation. There are no degenerative changes. There is no lytic or sclerotic lesion. There is no soft tissue abnormality seen. There is no effusion IMPRESSION: Small intra-articular ossific bodies volarly versus remote avulsion injury to the coronoid process.. MACRO: None Signed by: Paul Fuentes 03/21/2024 12:23 PM Dictation workstation: [id number] [facility] Work Phone: XR Elbow - right 3 ViewsOrde red By: Paul Fuentes on 03-21-2024 [facility] Work Phone: XR Elbow - right 3 Viewson 1 05-21-2023 Radiology Study observation (narrative) [facility] Work Phone: US Abdomenon 07-24-2023 These images are not reportable by radiology and will not be interpreted by Radiologists. IMAGING MR Hip - right WO contraston 07-09-2023 Mild right gluteus m edius tendinosis without evidence of tear. No evidence of other internal derangement right hip. Signed by: Josias Urias 07/09/2023 5:21 PM Dictation workstation: [id number] MMODAL Interpreted By: Josias Gil, STUDY: MR HIP RIGHT WO IV CONTRAST; INDICATION: Signs/Symptoms:pain. COMPARISON: Plain film radiographs of the pelvis and right hip performed on April 22, 2023 ACCESSION NUMBER(S): [id number] ORDERING CLINICIAN: TERRANCE KAUFFMAN TECHNIQUE: Routine multiplanar multisequential MRI of the right hip without contrast. FINDINGS: No evidence of fracture. Femoral neck and acetabular morphology normal. No marrow edema or marrow replacement process. No sizeable effusion. No avascular necrosis. No evidence of labral tear. Small amount of right-sided gluteus medius tendinosis without evidence of tear. No other tendon abnormality seen. Small amount of free pelvic fluid and a follicular cyst in the left adnexa, not unexpected in female patient of this age. No other focal fluid collections. No evidence of a soft tissue mass. No muscular signal abnormality. [facility] MMODAL Josias Urias MD - 07/09/2023 Interpreted By: Josias Urias, STUDY: MR HIP RIGHT WO IV CONTRAST; INDICATION: Signs/Symptoms:pain. COMPARISON: Plain film radiographs of the pelvis and right hip performed on April 22, 2023 ACCESSION NUMBER(S): [id number] ORDERING CLINICIAN: TERRANCE KAUFFMAN TECHNIQUE: Routine multiplanar multisequential MRI of the right hip without contrast. FINDINGS: No evidence of fracture. Femoral neck and acetabular morphology normal. No marrow edema or marrow replacement process. No sizeable effusion. No avascular necrosis. No evidence of labral tear. Small amount of right-sided gluteus medius tendinosis without evidence of tear. No other tendon abnormality seen. Small amount of free pelvic fluid and a follicular cyst in the left adnexa, not unexpected in female patient of this age. No other focal fluid collections. No evidence of a soft tissue mass. No muscular signal abnormality. IMPRESSION: Mild right gluteus medius tendinosis without evidence of tear. No evidence of other internal derangement right hip. Signed by: Josias Urias 07/09/2023 5:21 PM Dictation workstation: [id number] [facility] Work Phone: Radiology Study observation (narrative) [facility] Work Phone: MR Hip - right WO contrastOr dered By: Josias Urias on 07-09-2023 [facility] Work Phone: L Inj/Asp: R hip jointon Uday Hernandez DO 06/10/2023 3:30 PM L Inj/Asp: R hip joint on 06/10/2023 3:22 PM Indications: pain Details: 21 G needle, ultrasound-guided anterior approach Medications: 80 mg triamcinolone acetonide 40 mg/mL; 2 mL lidocaine 10 mg/mL (1 %) Outcome: tolerated well, no immediate complications Procedure, treatment alternatives, risks and benefits explained, specific risks discussed. Consent was given by the patient. Immediately prior to procedure a time out was called to verify the correct patient, procedure, equipment, account support rep and site/side marked as required. Patient was prepped and draped in the usual sterile fashion. [facility] Work Phone: [facility] Work Phone: PT Outpatient Time Spent Wit h Pt-Texton 06-03-2023 PT Outpatient Time Spent With Pt-Text PT Outpatient Time Spent With Patient Entered On: 06/03/2023 10:21 EST Performed On: 06/03/2023 10:15 EST by Saroj Dorantes PTA Time Spent with Patient - Outpatient PT Time In : 08:46 EST PT Time Out : 09:33 EST PT Therapeutic Exercise Time : 21 minutes JOB SITE SUPERVISOR Therapeutic Exercise Units : 1 units PT Neuromuscular Reeducation Time : 11 minutes JOB SITE SUPERVISOR Neuromuscular Reeducation Units : 1 units PT Soft Tissue Mobility Time : 15 minutes JOB SITE SUPERVISOR Soft Tissue Mobility Units : 1 units PT Total Timed Code Treatment Units : 3 units PT Total Timed Code Tx Minutes : 47 minutes 8 Min Rule Unit Check PT OP : 3 units PT Total Treatment Time Rehab : 47 minutes 8 Min Rule Unit Difference PT OP : 0 Saroj Dorantes PTA - 06/03/2023 10:15 EST Normal [facility] PT Outpatient Time Spent Wit h Pt-Texton 05-27-2023 PT Outpatient Time Spent With Pt-Text PT Outpatient Time Spent With Patient Entered On: 05/27/2023 11:35 EST Performed On: 05/27/2023 11:34 EST by Saroj Dorantes PTA Time Spent with Patient - Outpatient PT Time In : 08:50 EST PT Time Out : 09:32 EST PT Therapeutic Exercise Time : 17 minutes JOB SITE SUPERVISOR Therapeutic Exercise Units : 1 units PT Neuromuscular Reeducation Time : 11 minutes JOB SITE SUPERVISOR Neuromuscular Reeducation Units : 1 units PT Soft Tissue Mobility Time : 14 minutes JOB SITE SUPERVISOR Soft Tissue Mobility Units : 1 units PT Total Timed Code Treatment Units : 3 units PT Total Timed Code Tx Minutes : 42 minutes 8 Min Rule Unit Check PT OP : 3 units PT Total Treatment Time Rehab : 42 minutes 8 Min Rule Unit Difference PT OP : 0 Saroj Dorantes PTA - 05/27/2023 11:34 EST Normal [facility] Therapy Benefits Information - Texton 04-29-2023 Therapy Benefits Information - Text Rehab - Therapy Benefits Information Entered On: 04/29/2023 16:44 EST Performed On: 04/29/2023 16:42 EST by Viki Delcid Therapy Benefits Information Patient Name: : CORBY HENDRICKSON Date of : : 1985 Appointment Date: : 05/06/2023 08:45 EST Primary Name : MMO Policy # : [id number] Group # : [id number] Authorization,Pre-Cert or Referral Required : No Edie GOLDMAN Viki - 04/29/2023 16:42 EST Medrisk/AIM/Optum/T-Matri x/Other DED OOP Type : Individual Individual Amount : 8,300 dollars 9,450 dollars Edie GOLDMAN Viki - 04/29/2023 16:42 EST Edie GOLDMAN Viki 04/29/2023 16:42 EST Payable At: : 50% after DED Co-Pay/Co-Insurance : 50% coins; No copay Visit Limits : 20 Reviewed with Patient: : No Benefits Verified By : Viki Delcid Viki - 04/29/2023 16:42 EST Normal [facility] XR Hip Viewson 04-23-2023 Findings at least on the right which in the appropriate clinical setting can be associated with femoroacetabular impingement. Signed by: Michael Sheldon 04/23/2023 12:47 PM Dictation workstation: [id number] [facility] MMODAL Interpreted By: Michael Leung, STUDY: Pelvis and right hip dated 04/22/2023. INDICATION: Signs/Symptoms:right hip pain COMPARISON: Radiographs dated 02/06/2020. ACCESSION NUMBER(S): [id number] ORDERING CLINICIAN: TERRANCE KAUFFMAN TECHNIQUE: AP and false profile pelvis and oblique right hip radiographs. FINDINGS: No fracture or dislocation is evident.There is increased density at the right acetabular sourcil. There appears to be a degree of flattening at the right anterosuperior femoral head neck junction. There is a punctate left os acetabulum. Vascular calcifications are seen over the soft tissues. MMODAL Michael Sheldon M D - 04/23/2023 Interpreted By: Michael Sheldon, STUDY: Pelvis and right hip dated 04/22/2023. INDICATION: Signs/Symptoms:right hip pain COMPARISON: Radiographs dated 02/06/2020. ACCESSION NUMBER(S): [id number] ORDERING CLINICIAN: TERRANCE KAUFFMAN TECHNIQUE: AP and false profile pelvis and oblique right hip radiographs. FINDINGS: No fracture or dislocation is evident.There is increased density at the right acetabular sourcil. There appears to be a degree of flattening at the right anterosuperior femoral head neck junction. There is a punctate left os acetabulum. Vascular calcifications are seen over the soft tissues. IMPRESSION: Findings at least on the right which in the appropriate clinical setting can be associated with femoroacetabular impingement. Signed by: Michael Sheldon 04/23/2023 12:47 PM Dictation workstation: [id number] [facility] Work Phone: XR Hip ViewsOrdered By: Adam Sheldon on 04-23-2023 [facility] Work Phone: XR Hip Viewson 04-22-2023 Radiology Study observation (narrative) [facility] Work Phone: Patient Letteron 12-11-2022 Patient Letter (Inserted Image. Viji ble to display) December 11, 2022 CORBY HENDRICKSON [id number] [place] [address] Dear Corby, You are due for your follow up appointment with us. Please call the office at [phone] to schedule. Thank you, [facility] SHARYN CAT MD [facility] Phone Msgon 12-10-2022 Phone Msg - From: Amparo Delgado To: Dona Carrington; Sent: 12/10/2022 08:37:48 EDT Subject: Physical therapy dx Caller Name: CORBY HENDRICKSON; Caller Number: H Pt was given prescription for physical therapy but there was no dx code on it. Could you please have that updated and I can fax that to [facility]. If you need to speak with the patient, she can be reached at [phone]. Thank you. From: Dona Carrington To: Amparo Delgado; Sent: 12/10/2022 09:22:07 EDT Subject: RE: Physical therapy dx Actions: Message Caller Name: CORBY HENDRICKSON; Caller Number: H I tried to call the pt she did not answer and VM is not identified. she can write the Dx on the order she has that Dr Cat already signed. Dyspareunia in female N94.10 Normal [facility] Therapy Benefits Information - Texton 12-10-2022 Therapy Benefits Information - Text Rehab - Therapy Benefits Information Entered On: 12/10/2022 13:41 EDT Performed On: 12/10/2022 13:39 EDT by Gaby Grayson Therapy Benefits Information Patient Name: : CORBY HENDRICKSON Date of : : 1985 Appointment Date: : 12/11/2022 16:00 EDT Primary Name : Yunior Saeed Phone # : [phone] Policy # : [id number] Effective Date: : 04/01/2022 EST Authorization,Pre-Cert or Referral Required : Yes Gaby Grayson - 12/10/2022 13:39 EDT Medrisk/AIM/Optum/T-Matri x/Other DED MET OOP OOP-MET Type : Individual Individual Individual Individual Amount : 8,300.00 dollars 3,700.00 dollars 8,700.00 dollars 4,666.00 dollars Aishwarya Graysony - 12/10/2022 13:39 EDT Gaby Grayson - 12/10/2022 13:39 EDT Alysonoscar Aishwaryay - 12/10/2022 13:39 EDT Gaby Grayson - 12/10/2022 13:39 EDT Payable At: : 50% Visit Limits : UP to 20 Comments: : Yunior Saeed pays 50% after DED. DED-$8300.00-$3700.00 met OOP-$8700.00-4666.00 met. Visits based on AUTH. ABIMAEL garcia @ [phone] Option #3 REF#[id number] Reviewed with Patient: : No Date/Time : 12/10/2022 13:41 EDT Benefits Verified By : Kenan Gabyrudy Grayson Gaby - 12/10/2022 13:39 EDT Normal [facility] Physician Progress No carolyn 11-28-2022 [facility] Physician Progress Note CORBY HENDRICKSON :1985 Registration Date:11/28/2022 Assessment/Plan This Visit Diagnosis 1. Dyspareunia in female N94.10 will add pelvic floor PT Ordered: AMB Office/Outpt New Pt Low MDM / 30-44 min 19459, 11/28/2022 10:12:00 EDT, Dyspareunia in female [facility] Ultrasound, transvaginal [address], 11/28/2022 07:46:00 EDT, Dyspareunia in female, 1 US TV ECHO NON OB OFFICE READ, 11/28/2022 09:41:00 EDT, Routine, PELVIC PAIN, Ambulatory, N94.10 Medication Reconciliation What How Much When Instructions Unchanged ethinyl estradiol-etonogestrel (ethinyl estradiol-etonogestrel 0.015 mg-0.12 mg/ 24 hours vaginal ring) 3 EA, 0 Refill(s) Unchanged fluticasone nasal (Flonase 50 mcg/ inh nasal spray) 1 Sprays Nasal TWICE A DAY What How Much When Comments Stop Taking famotidine (Pepcid 40 mg oral tablet) 1 Tabs Oral AT BEDTIME Duration: 30 Days Stop Taking fexofenadine (Katie) Oral Stop Taking pantoprazole (pantoprazole 40 mg oral delayed release tablet) 1 Tabs Oral TWICE A DAY Stop Taking pantoprazole (Protonix 40 mg oral delayed release tablet) 1 Tabs Oral TWICE A DAY 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 It is always uncomfortable. She's been on the nuva ring. She doesn't need advil when she is on her period. They have been together for 9 years. When she was at her PCP she was given diflucan, she thought they did STD testing then. Physical Exam Vitals & Measurements BP: 112/64 HT: 150 cm WT: 64.2 kg BMI: 28.53 LMP: 11/08/2022 00:00 EDT Depression Screening Scores Initial Depression Screen Score: 0 (11/28/22 09:13:00) Fall Risk Assessment Is the patient ambulatory (mobile): Yes (11/28/22 09:13:00) Have you had a fall within the past: No (11/28/22 09:13:00) Have you had 2 or more falls in the past: No (11/28/22 09:13:00) The vital signs were reviewed and are normal. General appearance: well developed and well nourished Lungs: Normal respiratory effort Extremities: no edema Psychiatric: Mood: normal ECHOCARDIOGRAPHY RADIOLOGY TECHNOLOGIST: External genitalia: normal, no lesions Urethra: normal meatus Vagina: normal no lesions, scant discharge, tender to palpation along the posterior wall Cervix: no lesions, no cervical motion tenderness, normal appearance Uterus: normal mobility, non-tender, normal size, shape and consistency Adnexa: normal Cul de sac: normal Perineum: no hemorrhoids, masses or warts noted ECHOCARDIOGRAPHY RADIOLOGY TECHNOLOGIST Additional Details-Patient Stated Menstrual History Menstrual StatusMenarcheal Last Menstrual Dikauc0111/08/2022 ECHOCARDIOGRAPHY RADIOLOGY TECHNOLOGIST Screening Date of Last Pap Smear09/06/2022 Last Pap Result, Pt StatedNegative Last Pap Result CommentNeg HPV Contraception Contraception MethodOther hormonal method(Recorded: 11/28/2022 09:17 EDT) Additional Hormonal Contraception TypesVaginal ring(Recorded: 11/28/2022 09:17 EDT) OB History History (0,0,0,0) No previous pregnancies history have been recorded Problem List/Past Medical History Ongoing Acid reflux Esophageal pain Procedure/Surgical History esophagogastroduodenoscop y(EGD).: 07/31/22: COLIN STEIN MD esophagogastroduodenoscop y(EGD).: 08/05/17: COLIN STEIN MD Medications ethinyl estradiol-etonogestrel(et hinyl estradiol-etonogestrel 0.015 mg-0.12 mg/24 hours vaginal ring) fluticasone nasal(Flonase 50 mcg/inh nasal spray), 1 sprays, Nasal, BID Allergies No Known Medication Allergies Social History Alcohol Use:Current Type:Wine Frequency:1-2 times per month Sexual Sexually active:Yes Other contraceptive use:Nuva Ring Substance Abuse - Denies Substance Abuse Tobacco Use:Former smoker, quit more than 30 days ago Type:Cigarettes Family History Family history is negative Lab Results Normal pap 09/06/22 Radiology Results US TV ECHO NON OB OFFICE READ 11/28/2022 13:52 EDT (11/28/2022 10:04 EDT US TV ECHO NON OB OFFICE READ) Reason For Exam PELVIC PAIN Report Indication: Painful intercourse LMP 11/07/22, cycle day 22, nuva ring A transvaginal ultrasound was performed. The uterus was anteverted and measured 6.6 by 2.8 by 3.5 cm. The myometrium was homogeneous. The endometrium was thin and measured 3.3 mm. The cervix was normal. The right ovary appeared normal and measured 2.3 by 1.8 by 1.5 cm. The left ovary appeared normal and measured 1.5 by 1.2 by 1.5 cm. There was no free fluid in the pelvis. Impression: Normal pelvic ultrasound. Signature Line Technologist: ALEJANDRO Dictated By: SHARYN CAT MD, FACOG Signed By: SHARYN CAT MD, FACOG Transcribed: 11.28.2022 13:52 Signed Out: 11/28/22 13:52:08 [1] [1] US TV ECHO NON OB OFFICE READ; SHARYN CAT MD, FACOG 11/28/2022 10:04 EDT Electronically Signed by: BEST (more content not included)... Normal [facility] Ambulatory Clinical Summaryo n 11-28-2022 Ambulatory Clinical Summary CORBY HENDRICKSON :1985 Registration Date:11/28/2022 Ambulatory Visit Instructions Your Diagnosis Dyspareunia in female Tests Performed US TV ECHO NON OB OFFICE READ -- Results Pending -- You will be contacted within 72 hours with your results. Your Care Team Attending Physician - EMORY LEE FACOG, SHARYN Primary Care Physician - ANGEL PENNY Procedures Performed esophagogastroduodenoscop y(EGD). (07/31/2022) [facility]t [facility] (2019) esophagogastroduodenoscop y(EGD). (08/05/2017) Discharge Vitals Blood Pressure 112/64 Height 59.06 in (150 cm) Weight 141.56 lb (64.2 kg) BMI 28.53 Systolic Blood Pressure: 112 mmHg (11/28/22 09:13:00) Diastolic Blood Pressure: 64 mmHg (11/28/22 09:13:00) Mean Arterial Pressure: 80 mmHg (11/28/22 09:13:00) Height/Length Measured: 150 cm (11/28/22 09:13:00) Weight Measured: 64.2 kg (11/28/22 09:13:00) Body Mass Index Measured: 28.53 kg/m2 (11/28/22 09:13:00) Height/Length Measured - in2: 59 in (11/28/22 09:13:00) Ht/Wt Measurement Refused by Patient?2: No (11/28/22 09:13:00) Last Menstrual Period: 11/08/22 (11/28/22 09:13:00) What to do next Scheduled Follow-Up Appointments No results Medications What How Much When Instructions Unchanged ethinyl estradiol-etonogestrel (ethinyl estradiol-etonogestrel 0.015 mg-0.12 mg/ 24 hours vaginal ring) 3 EA, 0 Refill(s) Unchanged fluticasone nasal (Flonase 50 mcg/ inh nasal spray) 1 Sprays Nasal TWICE A DAY What How Much When Comments Stop Taking famotidine (Pepcid 40 mg oral tablet) 1 Tabs Oral AT BEDTIME Duration: 30 Days Stop Taking fexofenadine (Katie) Oral Stop Taking pantoprazole (pantoprazole 40 mg oral delayed release tablet) 1 Tabs Oral TWICE A DAY Stop Taking pantoprazole (Protonix 40 mg oral delayed release tablet) 1 Tabs Oral TWICE A DAY Allergies No Known Medication Allergies Problems Ongoing - Any problem that you are currently receiving treatment for. Acid reflux Esophageal pain Common Emergency Awareness Tips IS IT A STROKE? Act FAST and Check for these signs: FACE Does the face look uneven? ARM Does one arm drift down? SPEECH Does their speech sound strange? TIME Call at any sign of stroke Heart Attack Signs Chest discomfort: Most heart attacks involve discomfort in the center of the chest and lasts more than a few minutes, or goes away and comes back. It can feel like uncomfortable pressure, squeezing, fullness or pain. Discomfort in upper body: Symptoms can include pain or discomfort in one or both arms, back, neck, jaw or stomach. Shortness of breath: With or without discomfort. Other signs: Breaking out in a cold sweat, nausea, or lightheaded. Remember, MINUTES DO MATTER. If you experience any of these heart attack warning signs, call to get immediate medical attention! 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 : No Urine Leakage? : No Presence or absence of urinary incontinence assessed : Yes CPT-II Medication list doc'd in medical record : Yes Influenza immunization administered or previously received : No Pneumococcal vaccine administered or previously received : No Dona Carrington - 11/28/2022 9:13 EDT Measurements Ht/Wt Measurement Refused by Patient? : No Weight Measured : 64.2 kg(Converted to: 141 lb 9 oz, 141.537 lb) Height/Length Measured : 150 cm(Converted to: 4 ft 11 in, 59.06 in) Body Mass Index Measured : 28.53 kg/m2 Body Mass Index documented : Yes Height/Length Measured - in : 59 in(Converted to: 4 ft 11 in, 150 cm) Dona Carrington - 11/28/2022 9:13 EDT Vitals Require BP : Yes Systolic Blood Pressure : 112 mmHg Diastolic Blood Pressure : 64 mmHg Mean Arterial Pressure : 80 mmHg Last Systolic BP : less than 130 mmHg Last Diastolic BP : less than 80 mmHg Pain Present : No actual or suspected pain Pain : 0 Pain severity quantified : No pain present Dona Carrington - 11/28/2022 9:13 EDT Infection Screening - Ambulatory Exposure AND/OR close contact with a person under investigation or laboratory-confirmed COVID-19 individual within 14 days of symptom onset AND/OR any of the following: : No Do you live/work in a high risk situation (congregated living, hemodialysis, infusion clinic, snf, assisted living, detention, homeless halfway, etc.)? : No Dona Carrington 11/28/2022 9:13 EDT Depression Screening Is patient currently : None of the Below Feeling Down, Depressed, Hopeless : Not at all Little Interest - Pleasure in Activities : Not at all Initial Depression Screen Score : 0 Depression Screening Score 0 : No Dona Carrington 11/28/2022 9:13 EDT Falls Risk Assessment Is the patient ambulatory (mobile) : Yes Have you had 2 or more falls in the past year : No Have you had a fall within the past year that has caused an injury : No Patient screen for fall risk : no falls in last year OR 1 fall with no injury in last year Dona Carrington 11/28/2022 9:13 EDT Normal [facility] ECHOCARDIOGRAPHY RADIOLOGY TECHNOLOGIST Visit - Texton ECHOCARDIOGRAPHY RADIOLOGY TECHNOLOGIST Visit - Text ECHOCARDIOGRAPHY RADIOLOGY TECHNOLOGIST Visit Entered On : 11/28/2022 9:18 EDT Performed On: 11/28/2022 9:17 EDT by Dona Carrington ECHOCARDIOGRAPHY RADIOLOGY TECHNOLOGIST Menstrual History Menstrual Status : Menarcheal Dona Carrington - 11/28/2022 9:17 EDT ECHOCARDIOGRAPHY RADIOLOGY TECHNOLOGIST Screenings Date of Last Pap Smear : 09/06/2022 Last Pap Result : Negative Last Pap Result Comment : Neg HPV Dona Carrington 11/28/2022 9:28 EDT Date of Last Mammogram : Never Dona Carrington - 11/28/2022 9:17 EDT Contraception Contraception Method : Other hormonal method Additional Hormonal Contraception Types : Vaginal ring Dona Carrington - 11/28/2022 9:17 EDT Normal [facility] US TV ECHO NON OB OFFICE IFEANYI Kenyon 11-28-2022 US TV ECHO NON OB OFFICE READ Indication: Painful intercourse LMP 11/07/22, cycle day 22, nuva ring A transvaginal ultrasound was performed. The uterus was anteverted and measured 6.6 by 2.8 by 3.5 cm. The myometrium was homogeneous. The endometrium was thin and measured 3.3 mm. The cervix was normal. The right ovary appeared normal and measured 2.3 by 1.8 by 1.5 cm. The left ovary appeared normal and measured 1.5 by 1.2 by 1.5 cm. There was no free fluid in the pelvis. Impression: Normal pelvic ultrasound. Normal [facility] Comment on above: Order Comment: Order ed on [facility]# [id number] Result Comment: Tech nologist: LK Dictated By: SHARYN CAT MD, FACOG Signed By: SHARYN CAT MD, FACOG Transcribed: 11.28.2022 13:52 Signed Out: 11/28/22 13:52:08 AMB GI Physician Progress Michelle leon 08-13-2022 AMB GI Physician Progress Note Chief Complaint Acid reflux History of Present Illness 37-year-old female acid reflux endoscopy shows small hiatal hernia. Patient on PPI twice daily still continues to have intermittent acid reflux patient does not take the PPI on an empty stomach Physical Exam Vitals & Measurements Systolic Blood Pressure: 110 mmHg (08/13/22 15:18:00) Diastolic Blood Pressure: 56 mmHg Low (08/13/22 15:18:00) Temperature Temporal (F): 97.5 degF (08/13/22 15:18:00) Mean Arterial Pressure: 74 mmHg (08/13/22 15:18:00) Height/Length Measured: 150 cm (08/13/22 15:18:00) Weight Measured: 62 kg (08/13/22 15:18:00) Body Mass Index Measured: 27.56 kg/m2 (08/13/22 15:18:00) Weight Measured - lbs2: 137 lb (08/13/22 15:18:00) Height/Length Measured - in2: 59 in (08/13/22 15:18:00) Body Mass Index Measured English2: 27.67 kg/m2 (08/13/22:18:00) BSA: 1.61 m2 (08/13/22:18:00) Ht/Wt Measurement Refused by Patient?2: No (08/13/22 15:18:00) Depression Screening Scores Initial Depression Screen Score: 0 (08/13/22:18:00) Fall Risk Assessment Is the patient ambulatory (mobile): Yes (08/13/22:18:00) Have you had a fall within the past: No (08/13/22:18:) Have you had 2 or more falls in the past: No (08/13/22:18:) Constitutional: Well nourished, well developed. Appears to be in no acute distress Eyes: No pallor, No icterus Neck: Supple, no thyromegaly Respiratory: Lungs are clear bilaterally Cardiovascular: Rhythm is regular Extremities: No edema Abdomen: Abdomen is soft, non-tender, and non-distended without guarding, rigidity, or rebound tenderness. No mass, No organomegaly. Bowel sounds normal Skin: Skin is warm and dry Psychologic: Alert and cooperative. Mood and affect appropriate Neurologic: Grossly intact, no focal motor or sensory deficit, Normal power and strength Assessment/Plan This Visit Diagnosis 1. Acid reflux K21.9 Acid reflux patient to take PPI twice daily on an empty stomach follow-up in 4 months if symptoms persist patient to call in earlier Pt to be f/u with Kathya Menard CNP in clinic and to proceed with plan of care as I have established which would be based on endoscopy and test results to be scheduled. Please call office to schedule 2-4 week follow up with nurse practitioner Kathya Menard. Ordered: AMB Follow - Up Appt Amb, 08/13/2022 15:46:00 EDT, 4 months AMB Office/Outpt Est Pt Low MDM / 20-29 min [id number], 08/13/2022 15:46:00 EDT, Acid reflux Problem List/Past Medical History Ongoing Acid reflux Esophageal pain Historical No qualifying data Procedure/Surgical History esophagogastroduodenoscop y(EGD).: 07/31/22 esophagogastroduodenoscop y(EGD).: 08/05/17 Medications Katie, ORAL Flonase 50 mcg/inh nasal spray, 1 sprays, Nasal, BID Pepcid 40 mg oral tablet, 40 mg= 1 tabs, ORAL, QHS, 1 refills Protonix 40 mg oral delayed release tablet, 40 mg= 1 tabs, ORAL, BID, 5 refills Allergies No Known Medication Allergies Social History Alcohol Current, Wine, 1-2 times per month Substance Abuse - Denies Substance Abuse Tobacco Former smoker, quit more than 30 days ago Tobacco Use:. Cigarettes Family History Family history is negative Care Team Primary Care Physician ANGEL PENNY [phone] Attending Physician COLIN STEIN MD [phone] . Health Maintenance Pending (in the next year) Due COVID-19 Vaccine due 08/13/22 Variable frequency MMR Vaccine Dose 1 due 08/13/22 One-time only Tetanus Vaccine due 08/13/22 Variable frequency Varicella Vaccine Dose 1 due 08/13/22 One-time only Satisfied (in the past 1 year) There are no satisfied recommendations within the defined date range Normal [facility] Comprehensive Intake - Texto n 08-13-2022 Comprehensive Intake - Text Comprehensive Intake Entered On: 08/13/2022 15:19 EDT Performed On: 08/13/2022 15:18 EDT by Sintia Panchal MA Summary Advance Directive : No Bladder Control Issues? : No Urine Leakage? : No Presence or absence of urinary incontinence assessed : Yes CPT-II Medication list doc'd in medical record : Yes Sintia Panchal MA - 08/13/2022 15:18 EDT Influenza immunization administered or previously received : No Sintia Panchal MA - 08/13/2022 15:28 EDT Pneumococcal vaccine administered or previously received : No Sintia Panchal MA - 08/13/2022 15:18 EDT Measurements Weight Measured : 62 kg(Converted to: 136 lb 11 oz, 136.687 lb) Height/Length Measured : 150 cm(Converted to: 4 ft 11 in, 59.06 in) Body Mass Index Measured : 27.56 kg/m2 Body Mass Index documented : Yes Weight Measured - lbs : 137 lb(Converted to: 137 lb 0 oz, 62 kg) Height/Length Measured - in : 59 in(Converted to: 4 ft 11 in, 150 cm) Body Mass Index Measured Canadian : 27.67 kg/m2 BSA Canadian : 1.61 m2 Ht/Wt Measurement Refused by Patient? : No Sintia Panchal MA - 08/13/2022 15:28 EDT Vitals Systolic Blood Pressure : 110 mmHg Diastolic Blood Pressure : 56 mmHg (LOW) Mean Arterial Pressure : 74 mmHg Last Systolic BP : less than 130 mmHg Last Diastolic BP : less than 80 mmHg Temperature Temporal (F) : 97.5 degF(Converted to: 36 degC) Primary Pain Location : Chest Primary Pain Comments : Chest, epigastric and ABD pain 4-8/10 Require BP : Yes Pain Present : Yes actual or suspected pain Pain : 4 Pain severity quantified : Pain present Sintia Panchal MA - 08/13/2022 15:28 EDT Infection Screening - Ambulatory Exposure AND/OR close contact with a person under investigation or laboratory-confirmed COVID-19 individual within 14 days of symptom onset AND/OR any of the following: : No Do you live/work in a high risk situation (congregated living, hemodialysis, infusion clinic, snf, assisted living, detention, homeless halfway, etc.)? : No Sintia Panchal MA - 08/13/2022 15:18 EDT Depression Screening Is patient currently : None of the Below Feeling Down, Depressed, Hopeless : Not at all Little Interest - Pleasure in Activities : Not at all Initial Depression Screen Score : 0 Depression Screening Score 0 : No Sintia Panchal MA - 08/13/2022 15:18 EDT Falls Risk Assessment Is the patient ambulatory (mobile) : Yes Have you had 2 or more falls in the past year : No Have you had a fall within the past year that has caused an injury : No Patient screen for fall risk : no falls in last year OR 1 fall with no injury in last year Sintia Panchal MA - 08/13/2022 15:18 EDT Normal [facility] Provider Letter - Ambulatory on 08-13-2022 Provider Letter - Ambulatory ANGEL PENNY, [address] [facility] [address] [place] [id number] RE: CORBY HENDRICKSON 08/13/2022 Dear ANGEL PENNY This document is confidential and intended solely for the use of the individual or entity to which they are addressed. If you are not the named addressee, please disregard and do not disseminate, distribute or copy this information. If you are not the intended recipient you are notified that any disclosure of this information and its contents are strictly prohibited. If you have any questions about this document, please contact our office at . Sincerely, Dr. Keith The following document(s) were included in the letter: August 13, 2022 15:46:18 EDT - (08/13/2022) *.AMB Office Visit Note [facility] Provider Letter - Ambulatory ANGEL PENNY, [facility] [place] [address] RE: CORBY HENDRICKSON 08/13/2022 Dear ANGEL PENNY This document is confidential and intended solely for the use of the individual or entity to which they are addressed. If you are not the named addressee, please disregard and do not disseminate, distribute or copy this information. If you are not the intended recipient you are notified that any disclosure of this information and its contents are strictly prohibited. If you have any questions about this document, please contact our office at . Sincerely, Dr. Austin The following document(s) were included in the letter: August 13, 2022 15:46:18 EDT - (08/13/2022) *.AMB Office Visit Note [facility] Phone Msgon 08-06-2022 Phone Msg - From: Velia Rowe RN To: KATHYA MENARD CNP; Sent: 08/03/2022 10:48:50 EDT Caller Name: CORBY HENDRICKSON; Caller Number: H post procedure call- I spoke with Corby she is having constant epigastric discomfort and burning, stating it is slightly worse in the morning, She is taking her PPI as prescribed ( 40 mg bid 30 minutes before breakfast and dinner), Follow up is scheduled for August 13. Is there anything that she can do in the meantime? Results: Date Result Type Result Name 07/31/2022 11:46 EDT AP AP SURGICAL PATH REPORT Missing Attachment (07/31/2022) Operative Report can be viewed in source system Missing Attachment (07/19/2022) AMB GI Physician Progress Note can be viewed in source system From: KATHYA MENARD CNP To: Velia Rowe RN; Sent: 08/03/2022 11:11:10 EDT Subject: RE: Caller Name: CORBY HENDRICKSON; Caller Number: H Lets add Pepcid 40mg QHS ( take it right before she goes to bed). That will hopefully help with her stomach acid at night and in turn improving her morning symptoms. If that does not improve her symptoms after a couple days, we can add carafate. Have her keep us updated next week--- and then dietary modifications in the meantime. Thanks! From: Velia Rowe RN To: Sintia Panchal MA; Sent: 08/03/2022 16:34:17 EDT Subject: FW: Caller Name: CORBY HENDRICKSON; Caller Number: H Will you please call and let her know Pt aware. Normal [facility] SURGICAL PATH REPORTon 08-01 SURGICAL PATH REPORT [facility] Department of Pathology [address] [place] [id number] Name: CORBY HENDRICKSON : 1985 [facility] [id number] Number: Gender Female Locatio SW ENDO : n: Admit 37 years Attending COLIN STEIN MD Age: Provider: Ordering COLIN STEIN MD Provider: Consulti Surgical Pathology Report ng: ACCESSION: COLLECTED DATE/TIME: RECEIVED DATE/TIME: PATHOLOGIST: [id number] 07/31/2022 11:46 EDT 07/31/2022 12:47 EDT SEA MYERS MD Final Diagnosis (A) GASTRIC BIOPSY: - MILD CHRONIC GASTRITIS. - CHANGES CONSISTENT WITH PROTON PUMP INHIBITOR EFFECT. - IMMUNOHISTOCHEMICAL STAIN FOR H. PYLORI ORGANISMS IS NEGATIVE. (B) GASTRIC POLYP, BIOPSY: - FUNDIC GLAND POLYP. SEA MYERS PATHOLOGIST (Electronic Signature) Date Verified 08/01/2022 AD Clinical Data PRE-OP DIAGNOSIS: Esophageal pain POST-OP DIAGNOSIS: Gastritis, hiatal hernia, gastric polyp PROCEDURES: EGD SPECIMEN: (A) Gastric, cold biopsy (B) Gastric polyp, cold biopsy Gross Description (A) Labeled gastric. Received in formalin on a sponge is a single irregular swift segment of soft tissue measuring 0.5 x 0.4 x 0.4 cm. The specimen is entirely submitted in one cassette. (B) Labeled gastric polyp. Received in formalin on a sponge is a single irregular swift segment of soft tissue measuring 0.3 x 0.3 x 0.3 cm. The specimen is entirely submitted in one cassette. ____ Print 08/03/2022 10:49 EDT Number: Date/Time: [facility] Department of Pathology [address] [place] [phone] Name: CORBY HENDRICKSON : 1985 [facility] [id number] Number: Gender Female Locatio ENDO : n: Admit 37 years Attending COLIN STEIN MD Age: Provider: Ordering COLIN STEIN MD Provider: Consulti Surgical Pathology Report ng: ACCESSION: COLLECTED DATE/TIME: RECEIVED DATE/TIME: PATHOLOGIST: [id number] 07/31/2022 11:46 EDT 07/31/2022 12:47 EDT SEA MYERS MD Gross Description MP/ ww 07/31/2022 Microscopic Diagnosis The final diagnosis is based on a microscopic exam of territory sales representative sections. NOTE: One or more of the reagents used to perform assays on this specimen MAY have contained components considered to be analyte specific reagents ( ASRs). ASRs have not been cleared or approved by the U.S. Food and Drug Administration. The performance characteristics of these assays have been determined by the Department of Pathology at [facility]. This assay was performed subsequent to the H and E examination. Appropriate positive and negative controls were examined with appropriate reactivity. Codes CPT CODE: 79834 X 2 + [id number] ____ Print 08/03/2022 10:49 EDT Number: Date/Time: [facility] Comment on above: Performed By: #### [id number] #### [facility] [address] [place] [address] County Engineer: Sea Myers MD Anesthesiaon 07-31-2022 Anesthesia Patient: Roxana HENDRICKSON Age: 37 years Sex: Female : 1985 Associated Diagnoses: None Author: ESCOBAR CASPER MD Postoperative Information Time Seen: Date & Time 07/31/2022 12:15:00. Assessment Postanesthesia assessment Vitals: Vital Signs (last value in last 48 hours) Temperature Temporal Artery: 36.1 degC Low (07/31/22 11:50:00) Respiratory Rate: 19 br/min (07/31/22 12:10:00) Peripheral Pulse Rate: 61 bpm (07/31/22 12:10:00) Heart Rate Monitored: 60 bpm (07/31/22 12:10:00) Systolic Blood Pressure: 105 mmHg (07/31/22 12:10:00) Diastolic Blood Pressure: 60 mmHg (07/31/22 12:10:00) SpO2: 97 % (07/31/22 12:10:00). Mental status: at preoperative baseline. Respiratory function: normal oxygenation and ventilation. Pain: controlled. Nausea status: absence of nausea and vomiting. Postoperative hydration status: euvolemic. Normal [facility] Anesthesia Patient: Roxana HENDRICKSON Age: 37 years Sex: Female : 1985 Associated Diagnoses: None Author: ESCOBAR CASPER MD Diagnosis: Epigastric pain Preoperative Information NPO greater than 8 hours Anesthesia history Patient's history: negative. Family's history: negative. History of Present Illness ALL SYSTEMS REVIEWED: CV, PULM, GI, , NEURO, HEPATIC, HEME, ENDO, PSYCH, MS HISTORY/ROS: Acid reflux Epigastric pain Negative SALOMÓN screening Health Status Allergies: Allergies (1) Active Reaction No Known Medication Allergies None Documented Current medications: Medications (3) Active Scheduled: (1) FAMOTIDINE 20mg=PEPCID INJ 20 mg 2 mL, IV Push, PREOP Continuous: (1) LACTATED RINGERS 1,000 mL 1,000 mL, IV, 30 mL/hr PRN: (1) ETHYL CHLORIDE CHARGE 1 sprays, Topical, PRN LABORATORY DATA ChemistryBMP Plus Mag No qualifying data available. HematologyCBC brief [address] No qualifying data available. CoagulationPT INR [address] No qualifying data available. PregnancyPregnancy Test Test, U: NEG (07/31/22) Histories Past Medical History: Past Medical HistoryNo qualifying data available. Procedure history: esophagogastroduodenoscop y(EGD).: 08/05/17 Social History Social & Psychosocial History Social History Alcohol Current, Wine, 1-2 times per month Substance Abuse Denies Substance Abuse Tobacco Former smoker, quit more than 30 days ago Tobacco Use:. Cigarettes Psychosocial History No active psychosocial history has been recorded . Physical Examination VS/Measurements VITALS Vital Signs (last value in last 48 hours) Temperature Temporal Artery: 36.1 degC Low (07/31/22 10:25:00) Respiratory Rate: 15 br/min (07/31/22 10:25:00) Heart Rate Monitored: 68 bpm (07/31/22 10:25:00) Systolic Blood Pressure: 108 mmHg (07/31/22 10:25:00) Diastolic Blood Pressure: 78 mmHg (07/31/22 10:25:00) SpO2: 100 % (07/31/22 10:25:00)Height and Weight (last value in last 48 hours) Height/Length Dosin.86 cm (07/31/22 10:25:00) Weight Dosin.23 kg (07/31/22 10:25:00) Airway: Mallampati classification: II (soft palate, fauces, uvula visible). Assessment and Plan [place] [employer] Anesthesiologists (ASA) physical status classification: Class II. Anesthetic Preoperative Plan Anesthetic technique: General anesthesia. Special monitoring: Standard ASA monitors. Risks discussed: nausea, vomiting, headache, sore throat, dental injury, hypotension, allergic reaction, serious complications. Notes: Notes: Ethnicity: Non , white Smoking: reviewed . Normal [facility] ENDO Initial Data VS HW Prep -Texton 07-31-2022 ENDO Initial Data VS HW Prep-Text Endoscopy Intial Data VS HW Prep Entered On: 07/31/2022 10:28 EDT Performed On: 07/31/2022 10:25 EDT by Paulina Cannon RN VS HW Prep Systolic Blood Pressure : 108 mmHg Diastolic Blood Pressure : 78 mmHg Heart Rate Monitored : 68 bpm Respiratory Rate : 15 br/min SpO2 : 100 % Temperature Temporal Artery : 36.1 degC (LOW) Paulina Cannon RN - 07/31/2022 10:32 EDT NPO Since : 07/30/2022 21:00 EDT Height/Length Dosing : 149.86 cm(Converted to: 4.92 ft, 59.00 in) Weight Dosing : 61.23 kg(Converted to: 2,159.825 oz, 134.989 lb) Last Food Intake : 07/30/2022 21:00 EDT Last Fluid Intake : 07/30/2022 21:00 EDT HCG / UPREG : Yes Paulina Cannon RN - 07/31/2022 10:25 EDT Anesthesia/Transfusions Anesthesia/Transfusions : Prior anesthesia Accept Blood Products if Necessary : Yes Paulina Cannon RN - 07/31/2022 10:25 EDT Normal [facility] ENDO Outpatient Admission Da ta[place]coon 07-31-2022 ENDO Outpatient Admission Data-Text Endoscopy OP Admission Data Entered On: 07/31/2022 10:29 EDT Performed On: 07/31/2022 10:25 EDT by Paulina Cannon RN Assessment Mobility : Ambulatory Mental Status : Alert Oriented : Person, Place, Time Pacemaker/AICD : NONE Heart : Regular Lungs : Clear Abdomen : Soft, Non-Tender Bowel Sounds All Quadrants : Present Prosthesis/Metal : NONE Glasses : No Dentures : No Person Driving Pt Home : [facility] Surgeon Speak with Transportation Consultant : Yes Voided : Yes Pain Level and Site : 0 Paulina Cannon RN - 07/31/2022 10:25 EDT Present on Admission Medical Devices : None Paulina Cannon RN 07/31/2022 10:25 EDT [place] Coma Eye Opening Response [place] : Spontaneously Best Verbal Response [place] : Oriented Best Motor Response Hailey : Obeys simple commands Hailey Coma Score : 15 Paulina Cannon RN 07/31/2022 10:25 EDT Advance Directive *Advance Directive : No Paulina Cannon RN 07/31/2022 10:25 EDT Outpatient Fall Risk GEN_Fall Risk Indicators_[id number] : Medications altering equilibrium or cognitive judgement Fall Risk Band On : Yes Paulina Cannon RN - 07/31/2022 10:25 EDT Screening-Safety Domestic Concerns : None Feeling Down, Depressed, Hopeless : Not at all Little Interest - Pleasure in Activities : Not at all Initial Depression Screen Score : 0 Depression Screening Score 0 : No Paulina Cannon RN 07/31/2022 10:25 EDT Education Barriers to Learning : None evident TeachBack Methodology : TeachBack, Explanation, Printed Material Paulina Cannon RN 07/31/2022 10:25 EDT ENDO Education Activity Expectations : Verbalizes understanding Advance Directives : Verbalizes understanding Anesthesia/Sedation : Verbalizes understanding Call Light Use : Verbalizes understanding Diet/Nutrition : Verbalizes understanding Discharge Plan : Verbalizes understanding Endo Post Procedure Care : Verbalizes understanding Fall Risk : Verbalizes understanding Follow-Up Care/Appointment : Verbalizes understanding Orientation to Unit/Room : Verbalizes understanding Pain Management : Verbalizes understanding Patient Rights : Verbalizes understanding Plan of Care : Verbalizes understanding Safety : Verbalizes understanding Speakup : Verbalizes understanding Signs and Symptoms to Report : Verbalizes understanding Treatments/Procedures/Karen ts : Verbalizes understanding Other : Verbalizes understanding Paulina Cannon RN - 07/31/2022 10:25 EDT Normal [facility] Inpatient Patient Summaryon 07-31-2022 Inpatient Patient Summary [facility] Discharge Instructions [id number] [id number] (Patient Copy) Name: CORBY HENDRICKSON : 1985 Diagnosis: Allergies: No Known Medication Allergies Registration Date: 07/31/22 Current Date Time: 07/31/2022 12:07:40 Address: [address] [place] [address] Phone: [phone] Primary Care Provider: Name: ANGEL PENNY Phone: [phone] Thank you for choosing [facility] for your care. You are very important to us. Our goal is to demonstrate our high quality medical care and provide you with a very good patient experience. You may receive a survey about our service. Please take the time to complete the survey and return it so we can continue to enhance our service. Thank you again for allowing [facility] to care for your medical needs. If you have any questions about your care or follow up information please contact your doctor. Follow-up Instructions With: Address: When: COLIN STEIN, Gastroenterology [address] [facility] [address], [address] [place] [phone] Business (1) Within Call for Appointment Procedure Images Images Procedure images: EGD_0005.jpg EGD_0003.jpg EGD_0004.jpg EGD_0001.jpg EGD_0002.jpg . Medication Information Only Take The Medicines On This List. Keep This List and Bring It To Your Next Appointment. Medicines To Take At Home: Medicine Name (Generic Name) Amount to Take How to Take it How Often to Take it Additional Instructions Next Dose Due Katie (fexofenadine) By Mouth Flonase 50 mcg/inh nasal spray (fluticasone nasal) 1 sprays Nasal TWICE A DAY Protonix 40 mg oral delayed release tablet (pantoprazole) 40 mg By Mouth TWICE A DAY Understanding your home medicine is important to keeping you healthy. If you are taking medications that are not on the preceding list, please call your doctor to see if you are to continue taking that medication. It is important that you do not skip or make up doses. If you are ordered an antibiotic, finish taking all the medicine unless your doctor tells you otherwise. Call your doctor if you have any questions or problems. Take the medicine list with you to all follow up appointments. Patient education materials, if any, will display below [facility] ENDOSCOPY DEPARTMENT FOLLOW UP CARE ? For biopsy results, please call your doctor?s office in six (6) business days. BECAUSE YOU WERE MEDICATED ? DO NOT drive, operate machinery, make important decisions, sign legal documents, or perform activities that require coordination or balance for 24 hours. ? Rest for the remainder of the day. You may resume normal activity tomorrow, unless your doctor told you otherwise. ? For your safety, have a responsible adult with you for the remainder of the day and overnight. HOME MEDICATIONS ? Continue taking your home medications as directed. ? Certain medicines may increase your risk of bleeding and should only be resumed as directed by your doctor. These include Motrin, Advil, Aleve, all NSAIDs, Aspirin, Plavix, Coumadin, and other blood thinners/anticoagulants. DIET ? Drink plenty of fluids today, unless your doctor told you otherwise. ? Do not drink any kind of alcohol, including beer or wine. ? Resume your diet as instructed. GO TO THE EMERGENCY ROOM IF YOU NOTICE ANY OF THE FOLLOWING: These could be signs of an infection or a complication. ? Fever greater than 101 degrees ? Persistent vomiting ? Severe abdominal pain, other than gas cramps ? Chest pain and/or shortness of breath ? Any bleeding and/or black tarry stools ? For a life-threatening event ? CALL 911 Any questions regarding the above instruction, please call your physician?s office at: THANK YOU FOR CHOOSING [facility] ENDOSCOPY DEPARTMENT FOR YOUR PROCEDURE! [phone] This information is not intended to replace advice given to you by your health care provider. Make sure you discuss any questions you have with your health care provider. ExitCare? Patient Information ?2016 [employer] Custom Education added 04/2018 Hiatal Hernia: Care Instructions Your Care Instructions A hiatal hernia occurs when part of the stomach bulges into the chest cavity. A hiatal hernia may allow stomach acid and juices to back up into the esophagus (acid reflux). This can cause a feeling of burning, warmth, heat, or pain behind the breastbone. This feeling may often occur after you eat, soon after you lie down, or when you bend forward, and it may come and go. You also may have a sour taste in your mouth. These symptoms are commonly known as heartburn or reflux. But not all hiatal hernias cause sy (more content not included)... Normal [facility] OR Nursing Record - Endoon 0 07-31-2022 OR Nursing Record - Endo OR Nursing Record - Endo Summary Primary Physician: COLIN STEIN MD Finalized Date/Time: 07/31/22 11:49:54 Pt. Name: CORBY HENDRICKSON/Sex: 1985 Female Med Rec #: [id number] Physician: Financial #: [id number] Pt. Type: A Room/Bed: / Admit/Disch: 07/31/22 09:12:33 - Institution: Case Times - Endo Entry 1 Patient In Room Time 07/31/22 11:35:00 Out Room Time 07/31/22 11:55:00 Anesthesia Facility Times Induction Time 07/31/22 11:39:00 Stop Time 07/31/22 11:55:00 [place] Protocol Yes Completed Surgery Start Time 07/31/22 11:44:00 Stop Time 07/31/22 11:49:00 Last Modified By: Diamond Hastings RN 07/31/22 11:49:45 Surgical Procedures - Endo Entry 1 Procedure EGD with MAC Modifiers None Surgeon Procedure EGD Primary Procedure Yes Description Primary Surgeon COLIN STEIN MD Start 07/31/22 11:44:00 Stop 07/31/22 11:49:00 Anesthesia Type MAC Surgical Service SN - Gastroenterology Last Modified By: Diamond Hastings RN 07/31/22 11:49:47 General Case Data - Endo Entry 1 Case Information OR Endo 04 Schedule Type Scheduled Case Level Endo 02 Wound Class Clean-Contaminated Specialty SN - Gastroenterology ASA Class 2 Procedure History Yes Documented Diagnosis Preop Diagnosis ESOPHAGEAL PAIN, ACID Postop Diagnosis GASTRITIS, HIATAL REFLUX HERNIA, GASTRIC POLYP Last Modified By: Diamond Hastings RN 07/31/22 11:49:36 Case Attendance - Endo Entry 1 Entry 2 Entry 3 Case Attendee SARITA LEE, COLIN Hastings RN, Jen Gooden RN Role Performed Surgeon Primary Waste Removalist Primary Scrub Primary Time In 07/31/22 11:35:00 07/31/22 11:35:00 07/31/22 11:35:00 Time Out 07/31/22 11:55:00 07/31/22 11:55:00 07/31/22 11:55:00 Procedure EGD with MAC(None) EGD with MAC(None) EGD with MAC(None) Last Modified By: Diamond Hastings RN, RN, Diamond Lilly RN 07/31/22 11:49:51 07/31/22 11:49:51 07/31/22 11:49:51 Entry 4 Entry 5 Case Attendee TREMAYNE LEE, NELSON PINEDA Role Performed Anesthesiologist Primary Anesthesia Asst/DIRECTOR TRANSPORTATION Time In 07/31/22 11:35:00 07/31/22 11:35:00 Time Out 07/31/22 11:55:00 07/31/22 11:55:00 Procedure EGD with MAC(None) EGD with MAC(None) Last Modified By: Diamond Hastings RN, RN, Dawn 07/31/22 11:49:51 07/31/22 11:49:51 Delays - Endo Entry 1 Delay Reason No Delay Last Modified By: Diamond Hastings RN 07/31/22 11:01:12 Vital Signs to IView - Endo NOT APPLICABLE Entry 1 Last Modified By: Endoscopy - Endo Entry 1 Scope Serial Number [id number] Last Modified By: Diamond Hastings RN 07/31/22 11:34:40 Medication Administration - Endo NOT APPLICABLE Entry 1 Last Modified By: Implants/Tissue Products - Endo NOT APPLICABLE Entry 1 Last Modified By: Endo Specimens/Cultures Entry 1 Specimens Taken Routine Endo Gastric Specimens/Cultures Specimen Comment 1. COLD BX Last Modified By: Diamond Hastings RN 07/31/22 11:46:18 Case Comments Finalized By: Diamond Hastings RN Document Signatures Signed By: Diamond Hastings RN 07/31/22 11:49 Normal [facility] Operative Reporton Operative Report Patient: Roxana HENDRICKSON Age: 37 years Sex: Female : 1985 Associated Diagnoses: None Author: COLIN STEIN MD Pre-Procedure Procedure Date: 07/31/2022 . Procedure Type: Esophagogastroduodenoscop y with biopsy. Procedure provider: Performed by COLIN STEIN MD. Indication: Esophageal pain. ASA Classification: Class II. Monitoring: See anesthesia record. Procedure The procedure was performed in an endoscopy suite in the hospital. See anesthesia record for sedation given during procedure. The patient was positioned starting in the left lateral decubitus position. Endoscope type used was gastroscope, introduced orally, advanced to duodenum. Views were excellent. Gastric biopsies were taken. The patient tolerated the procedure well. Findings EGD scope advanced to second portion of the duodenum Esophagus shows small hiatal hernia Stomach shows diffuse gastritis Subcentimeter gastric polyp seen in the gastric body biopsied for histology Gastric biopsies obtained for pathology and H. pylori Duodenum up to D2 normal Images Procedure images: EGD_0005.jpg EGD_0003.jpg EGD_0004.jpg EGD_0001.jpg EGD_0002.jpg . Post-Procedure Complications encountered during the procedure were none. Estimated blood loss during the procedure was none. Specimens were sent to pathology. Impression and Plan EGD: Pre Procedure Diagnosis: Same as pre op indication/diagnosis. Post Procedure Diagnosis: Gastritis gastric polyp. Course: Progressing as expected. Orders: Orders Patient Care: Communication CONSTANT Order (Order): 07/31/2022 11:55 EDT, Constant Order, Discharge patient after the following assessments are completed., Athe the criteria commensurate with pre-admission status. See departmental policies for discharge criteria specific to procedures performed. Post Procedure Location of Care (Order): 07/31/2022 11:55 EDT, SAME BED LOCATION Ambulate (Order): 07/31/2022 11:55 EDT, with assistance, Constant Order Nutrition Services/Dietary: Diet Order (Order): 07/31/2022 11:55 EDT, Clear Liquids. Education and Follow-up: Patient Instructions: COLIN STEIN, Gastroenterology Within Call for Appointment. Notes: Follow-up with pathology in clinic as scheduled Treat H. pylori with antibiotics if positive. Normal [facility] Comment on above: Order Comment: Michelle santizo Attachment [id number] can be viewed in source system Missing Attachment [id number] can be viewed in source system Missing Attachment [id number] can be viewed in source system Missing Attachment [id number] can be viewed in source system Missing Attachment [id number] can be viewed in source system Result Comment: PACU Phase I - Endoon 2022 PACU Phase I - Endo PACU Phase I - Endo Summary Primary Physician: COLIN STEIN MD Finalized Date/Time: 07/31/22 15:00:18 Pt. Name: CORBY HENDRICKSON/Sex: 1985 Female Med Rec #: [id number] Physician: Financial #: [id number] Pt. Type: A Room/Bed: / Admit/Disch: 07/31/22 09:12:33 - Institution: PACU I Case Times - Endo Entry 1 In PACU I 07/31/22 11:53:00 Ready for Transfer 07/31/22 12:21:00 Last Modified By: Julia Guerrero RN 07/31/22 12:21:50 Finalized By: Julia Guerrero RN Document Signatures Signed By: Julia Guerrero RN 07/31/22 12:21 Julia Guerrero RN 07/31/22 15:00 Normal [facility] Preop - Endoon 07-31-2022 Preop - Endo Preop - Endo Summary Primary Physician: COLIN STEIN MD Finalized Date/Time: 07/31/22 10:40:32 Pt. Name: CORBY HENDRICKSON /Sex: 1985 Female Med Rec #: [id number] Physician: Financial #: [id number] Pt. Type: A Room/Bed: / Admit/Disch: 07/31/22 09:12:33 - Institution: Preop - Case Times - Endo Entry 1 Patient Arrival Time 07/31/22 10:11:00 Patient Ready for 07/31/22 10:40:00 Surgery Report Given to n/a Last Modified By: Paulina Cannon RN 07/31/22 10:40:31 Finalized By: Paulina Cannon RN Document Signatures Signed By: Paulina Cannon RN 07/31/22 10:40 [facility] Provider Letter - Ambulatory on 07-31-2022 Provider Letter - Ambulatory ANGEL PENNY, [facility] [address] RE: CORBY HENDRICKSON 07/31/2022 Dear ANGEL PENNY This document is confidential and intended solely for the use of the individual or entity to which they are addressed. If you are not the named addressee, please disregard and do not disseminate, distribute or copy this information. If you are not the intended recipient you are notified that any disclosure of this information and its contents are strictly prohibited. If you have any questions about this document, please contact our office at . Sincerely, Dr. Keith The following document(s) were included in the letter: July 31, 2022 11:52:00 EDT - (07/31/2022) GI EGD with Anesthesia Normal [facility] U TESTon 3 Test, U Negative Normal [facility] Comment on above: Performed By: #### 1 [id number] #### [facility] [address] [place] [id number] County Engineer: Sea Myers MD U Preg Internal QC Present Normal [facility] Comment on above: Performed By: #### 1 [id number] #### [facility] [address] [place] [address] County Engineer: Sea Myers MD [place] Protocol/Pre-Proc TimeOut-Texton 07-31-2022 [place] Protocol/Pre-Proc TimeOut-Text [place] Protocol Entered On: 07/31/2022 10:30 EDT Performed On: 07/31/2022 10:25 EDT by Paulina Cannon RN All Procedures Procedure this U.P. is completed for: : EGD Date/Time Pre-Procedure Verification : 07/31/2022 10:29 EDT Procedure Location : Endoscopy Pre-Procedure Verification : Patient Identification (Name & Date), Informed Consent (Signed, Dated), Procedure Identified by Patient, Site Identification N/A Paulina Cannon RN - 07/31/2022 10:25 EDT Beta Roxanna Beta Roxanna History : Patient does not take a Beta Roxanna Paulina Cannon RN - 07/31/2022 10:25 EDT Site Marking Site Marking : Procedure is Exempt From Marking Laterality [place] Protocol : N/A Paulina Cannon RN - 07/31/2022 10:25 EDT Surgery / Sedation Date/Time of OR Procedure Sedation Checklist : 07/31/2022 11:42 EDT Diamond Hastings RN - 07/31/2022 11:42 EDT OR Procedure & Sedation Verification : History & Physical (within 30 days), Nursing Assessment Completed Relevant Images : N/A Relevant Diagnostic Tests : N/A Blood Products : N/A Implants / Equiment : N/A Correct Procedure : Accurate Procedure Consent Form, Correct Procedure, Correct Patient Position Antibiotics : N/A Safety Precautions : Safety Precautions Based on Patient Medication or History Paulina Cannon RN - 07/31/2022 10:25 EDT Final Verification Date/Time : 07/31/2022 11:42 EDT Diamond Hastings RN - 07/31/2022 11:42 EDT Verification : Patient Identified (Name and Date), Correct Procedure, All Team Members are in Agreement Laterality : N/A Kassandra DAVID, Paulina - 07/31/2022 10:25 EDT Normal [facility] AMB GI Physician Progress No carolyn 07-19-2022 AMB GI Physician Progress Note Chief Complaint Esophageal pain History of Present Illness 37-year-old female with an episode of significant vomiting followed by retrosternal discomfort. Evaluated cardiac etiology ruled out Patient complains of acid reflux and retrosternal discomfort. Minimal dysphagia associated. Patient takes PPI once daily. Appetite is good weight is stable bowel habits are regular Physical Exam Vitals & Measurements Systolic Blood Pressure: 118 mmHg (07/19/22 13:18:00) Diastolic Blood Pressure: 81 mmHg (07/19/22 13:18:00) Temperature Oral (F): 98.2 degF (07/19/22 13:18:00) Peripheral Pulse Rate: 63 bpm (07/19/22 13:18:00) Mean Arterial Pressure: 93 mmHg (07/19/22 13:18:00) Height/Length Measured: 150 cm (07/19/22 13:18:00) Weight Measured: 62 kg (07/19/22 13:18:00) Body Mass Index Measured: 27.56 kg/m2 (07/19/22 13:18:00) Weight Measured - lbs2: 136 lb (07/19/22 13:18:00) Height/Length Measured - in2: 59 in (07/19/22 13:18:00) Body Mass Index Measured English2: 27.47 kg/m2 (07/19/22 13:18:00) BSA: 1.6 m2 (07/19/22 13:18:00) Ht/Wt Measurement Refused by Patient?2: No (07/19/22 13:18:00) Depression Screening Scores Initial Depression Screen Score: 0 (07/19/22 13:18:00) Fall Risk Assessment Is the patient ambulatory (mobile): Yes (07/19/22 13:18:00) Have you had a fall within the past: No (07/19/22 13:18:00) Have you had 2 or more falls in the past: No (07/19/22 13:18:00) Constitutional: Well nourished, well developed. Appears to be in no acute distress Eyes: No pallor, No icterus Neck: Supple, no thyromegaly Respiratory: Lungs are clear bilaterally Cardiovascular: Rhythm is regular Extremities: No edema Abdomen: Abdomen is soft, non-tender, and non-distended without guarding, rigidity, or rebound tenderness. No mass, No organomegaly. Bowel sounds normal Skin: Skin is warm and dry Psychologic: Alert and cooperative. Mood and affect appropriate Neurologic: Grossly intact, no focal motor or sensory deficit, Normal power and strength Assessment/Plan This Visit Diagnosis 1. Esophageal pain K22.89 Esophageal pain concern for esophagitis will evaluate with EGD increase dose of PPI to twice daily Risks and benefits of procedure discussed with patient. Complications including bleeding, infection, and perforation dicussed with patient. Complications of anesthesia also discussed. Management of complications, which may include surgery if indicated also discussed with patient. All questions were answered. Patient agrees to proceed with EGD. Ordered: AMB EGD, 07/19/2022 13:30:00 EDT, MAC AMB Follow - Up Appt Amb, 07/19/2022 13:30:00 EDT, 4 weeks AMB Office/Outpt Est Pt Mod MDM / 30-39 min [id number], 07/19/2022 13:30:00 EDT, Esophageal pain / Acid reflux 2. Acid reflux K21.9 Acid reflux increase PPI to twice daily Ordered: AMB EGD, 07/19/2022 13:30:00 EDT, [facility] AMB Follow - Up Appt Amb, 07/19/2022 13:30:00 EDT, 4 weeks AMB Office/Outpt Est Pt Mod MDM / 30-39 min [id number], 07/19/2022 13:30:00 EDT, Esophageal pain / Acid reflux Problem List/Past Medical History Ongoing Acid reflux Esophageal pain Historical No qualifying data Procedure/Surgical History esophagogastroduodenoscop y(EGD).: 08/05/17 Medications Katie, ORAL Flonase 50 mcg/inh nasal spray, 1 sprays, Nasal, BID Allergies No Known Medication Allergies Social History Alcohol Current, Wine, 1-2 times per month Substance Abuse - Denies Substance Abuse Tobacco Former smoker, quit more than 30 days ago Tobacco Use:. Cigarettes Family History Family history is negative Care Team Primary Care Physician ANGEL PENNY [phone] Attending Physician COLIN STEIN MD [phone] . Health Maintenance Pending (in the next year) Due COVID-19 Vaccine due 07/19/22 Variable frequency MMR Vaccine Dose 1 due 07/19/22 One-time only Tetanus Vaccine due 07/19/22 Variable frequency Varicella Vaccine Dose 1 due 07/19/22 One-time only Satisfied (in the past 1 year) There are no satisfied recommendations within the defined date range Normal [facility] Comprehensive Intake - Texto n 07-19-2022 Comprehensive Intake - Text Comprehensive Intake Entered On: 07/19/2022 13:19 EDT Performed On: 07/19/2022 13:18 EDT by Sintia Panchal MA Summary Advance Directive : No Bladder Control Issues? : No Urine Leakage? : No Presence or absence of urinary incontinence assessed : Yes CPT-II Medication list doc'd in medical record : Yes Influenza immunization administered or previously received : No Pneumococcal vaccine administered or previously received : No Sintia Panchal MA - 07/19/2022 13:18 EDT Measurements Ht/Wt Measurement Refused by Patient? : No Weight Measured : 62 kg(Converted to: 136 lb 11 oz, 136.687 lb) Height/Length Measured : 150 cm(Converted to: 4 ft 11 in, 59.06 in) Body Mass Index Measured : 27.56 kg/m2 Body Mass Index documented : Yes Weight Measured - lbs : 136 lb(Converted to: 136 lb 0 oz, 62 kg) Height/Length Measured - in : 59 in(Converted to: 4 ft 11 in, 150 cm) Body Mass Index Measured Canadian : 27.47 kg/m2 BSA Canadian : 1.6 m2 Sintia Panchal MA - 07/19/2022 13:18 EDT Vitals Require BP : Yes Systolic Blood Pressure : 118 mmHg Diastolic Blood Pressure : 81 mmHg Mean Arterial Pressure : 93 mmHg Pulse Rate : 63 bpm Last Systolic BP : less than 130 mmHg Last Diastolic BP : 80-89 mmHg Temperature Oral (F) : 98.2 degF(Converted to: 37 degC) Pain Present : Yes actual or suspected pain Pain : 5 Pain severity quantified : Pain present Primary Pain Location : Throat Primary Pain Comments : Trouble swallowing Sintia Panchal MA - 07/19/2022 13:18 EDT Infection Screening - Ambulatory Exposure AND/OR close contact with a person under investigation or laboratory-confirmed COVID-19 individual within 14 days of symptom onset AND/OR any of the following: : No Do you live/work in a high risk situation (congregated living, hemodialysis, infusion clinic, snf, assisted living, detention, homeless halfway, etc.)? : No Sintia Panchal MA - 07/19/2022 13:18 EDT Depression Screening Is patient currently : None of the Below Feeling Down, Depressed, Hopeless : Not at all Little Interest - Pleasure in Activities : Not at all Initial Depression Screen Score : 0 Depression Screening Score 0 : No Effie Panchal MAher - 07/19/2022 13:18 EDT Falls Risk Assessment Is the patient ambulatory (mobile) : Yes Have you had 2 or more falls in the past year : No Have you had a fall within the past year that has caused an injury : No Patient screen for fall risk : no falls in last year OR 1 fall with no injury in last year Ansley BONILLASintia - 07/19/2022 13:18 EDT Normal [facility] Basic metabolic 2000 panelon 06-11-2022 Anion gap [Moles/Vol] 9 mmol/L Normal 9-18 [facility] Comment on above: Order Comment: Ryan ruiz Type: BLOOD SPECIMEN Ordering Facility: [facility] Address: [address] [place] [address] Performed By: #### 2 4321-2 #### [facility] CLIA [id number] [address] [place] [address] [place] Calcium [Mass/Vol] 8.9 mg/dL Normal 8.5-10.2 [facility] Comment on above: Order Comment: Speci men Type: BLOOD SPECIMEN Ordering Facility: [facility] Address: [address] [place] [address] Performed By: #### 2 4321-2 #### [facility] CLIA [id number] [address] [place] [address] [place] Chloride [Moles/Vol] 106 mmol/L High 97-105 [facility] Comment on above: Order Comment: Speci men Type: BLOOD SPECIMEN Ordering Facility: [facility] Address: [address] [place] [address] Performed By: #### 2 4321-2 #### [facility] CLIA [id number] [address] [place] [address] [place] CO2 [Moles/Vol] 24 mmol/L Normal 22-30 [facility] Comment on above: Order Comment: Speci men Type: BLOOD SPECIMEN Ordering Facility: [facility] Address: [address] [place] [address] Performed By: #### 2 4321-2 #### [facility] CLIA [id number] [address] [place] [address] [place] Creatinine [Mass/Vol] 1.10 mg/dL High 0.58-0.96 [facility] Comment on above: Order Comment: Speci men Type: BLOOD SPECIMEN Ordering Facility: [facility] Address: [address] [place] [address] Performed By: #### 2 4321-2 #### [employer] [facility] [place] [facility] CLIA [id number] [address] [place] [address] [place] ESTIMATED GLOMERULAR FILTRATION RATE 67 mL/min/1.73m??? Normal >=60 [facility] Comment on above: Order Comment: Speci men Type: BLOOD SPECIMEN Ordering Facility: [facility] Address: [address] [place] [address] Result Comment: Sabrina mated Glomerular Filtration Rate (eGFR) is calculated using the 2020 CKD-EPI creatinine equation. This equation utilizes serum creatinine, sex, and age as parameters. The creatinine assay has traceable calibration to isotope dilution-mass spectrometry. Refer to KDIGO guidelines for clinical interpretation. In patients with unstable renal function, e.g. those with acute kidney injury, the eGFR may not accurately reflect actual GFR. Performed By: #### 2 4321-2 #### [facility] [place] [facility] CLIA [id number] [address] [place] [address] [place] Glucose [Mass/Vol] 97 mg/dL Normal 74-99 [facility] Comment on above: Order Comment: Ryan ruiz Type: BLOOD SPECIMEN Ordering Facility: [facility] Address: [address] [place] [address] Result Comment: The [place] Diabetes [employer] (ADA) provides guidance for cutoff values for fasting glucose and random glucose. The ADA defines fasting as no caloric intake for at least 8 hours. Fasting plasma glucose results between 100 to 125 mg/dL indicate increased risk for diabetes (prediabetes). Fasting plasma glucose results greater than or equal to 126 mg/dL meet the criteria for diagnosis of diabetes. In the absence of unequivocal hyperglycemia, results should be confirmed by repeat testing. In a patient with classic symptoms of hyperglycemia or hyperglycemic crisis, random plasma glucose results greater than or equal to 200 mg/dL meet the criteria for diagnosis of diabetes. Reference: Standards of Medical Care in Diabetes 2016, [place] [employer]. Diabetes Care. 2016.39(Suppl 1). Performed By: #### 2 4321-2 #### [facility] [place] [facility] CLIA [id number] [address] [place] [address] [place] Potassium [Moles/Vol] 4.2 mmol/L Normal 3.7-5.1 [facility] Comment on above: Order Comment: Ryan ruiz Type: BLOOD SPECIMEN Ordering Facility: [facility] Address: [address] [place] [address] Performed By: #### 2 4321-2 #### [facility] [place] [facility] CLIA [id number] [address] [place] [address] [place] Sodium [Moles/Vol] 139 mmol/L Normal 136-144 [facility] Comment on above: Order Comment: Ryan ruiz Type: BLOOD SPECIMEN Ordering Facility: [facility] Address: [place] [address] Performed By: #### 2 4321-2 #### [facility] [place] [facility] CLIA [id number] [address] [place] [address] [place] Urea nitrogen [Mass/Vol] 17 mg/dL Normal 7-21 [facility] Comment on above: Order Comment: Ryan ruiz Type: BLOOD SPECIMEN Ordering Facility: [facility] Address: [address] [place] [address] Performed By: #### 2 4321-2 #### [facility] [place] [facility] CLIA [id number] [address] [place] [address] [place] CBC W Auto Differential pane l (Bld)on 06-11-2022 Basophils (Bld) [#/Vol] 0.05 10*3/uL Normal <0.11 [facility] Comment on above: Order Comment: Speci men Type: BLOOD SPECIMEN Ordering Facility: [facility] Address: [address] [place] [address] Performed By: #### 5 7021-8 #### [facility] [place] [facility] CLIA [id number] [address] [place] [address] Basophils/100 WBC (Bld) 0.6 % Normal [facility] Comment on above: Order Comment: Speci men Type: BLOOD SPECIMEN Ordering Facility: [facility] Address: [address] [place] [address] Performed By: #### 5 7021-8 #### [facility] [place] [facility] CLIA [id number] [address] [place] [address] Differential cell count method Nom (Bld) Auto Normal [facility] Comment on above: Order Comment: Speci men Type: BLOOD SPECIMEN Ordering Facility: [facility] Address: [address] [place] [address] Performed By: #### 5 7021-8 #### [facility] [place] [facility] CLIA [id number] [address] [place] [address] [place] Eosinophils (Bld) [#/Vol] 0.16 10*3/uL Normal <0.46 [facility] Comment on above: Order Comment: Speci men Type: BLOOD SPECIMEN Ordering Facility: [facility] Address: [address] [place] [address] Performed By: #### 5 7021-8 #### [facility] [place] [facility] CLIA [id number] [address] OF [place] Eosinophils/100 WBC (Bld) 1.8 % Normal [facility] Comment on above: Order Comment: Speci men Type: BLOOD SPECIMEN Ordering Facility: [facility] Address: [address] [place] [address] Performed By: #### 5 7021-8 #### [facility] [place] [facility] CLIA [id number] [address] [place] Erythrocyte distribution width (RBC) [Ratio] 11.9 % Normal 11.5-15.0 [facility] Comment on above: Order Comment: Speci men Type: BLOOD SPECIMEN Ordering Facility: [facility] Address: [address] [place] [address] Performed By: #### 5 7021-8 #### [facility] [place] [facility] CLIA [id number] [address] [place] [address] [place] Hematocrit (Bld) [Volume fraction] 41.0 % Normal 36.0-46.0 [facility] Comment on above: Order Comment: Speci men Type: BLOOD SPECIMEN Ordering Facility: [facility] Address: [address] [place] [address] Performed By: #### 5 7021-8 #### [facility] [place] [facility] CLIA [id number] [address] [place] [address] [place] Hemoglobin (Bld) [Mass/Vol] 14.0 g/dL Normal 11.5-15.5 [facility] Comment on above: Order Comment: Speci men Type: BLOOD SPECIMEN Ordering Facility: [facility] Address: [address] [place] [address] Performed By: #### 5 7021-8 #### [facility] [place] [facility] CLIA [id number] [address] [place] Immature granulocytes (Bld) [#/Vol] 10*3/uL Normal <0.10 [facility] Comment on above: Order Comment: Speci men Type: BLOOD SPECIMEN Ordering Facility: [facility] Address: [address] [place] [address] Performed By: #### 5 7021-8 #### [facility] [place] [facility] CLIA [id number] [address] OF [facility] Immature granulocytes/100 WBC (Bld) 0.1 % Normal [facility] Comment on above: Order Comment: Speci men Type: BLOOD SPECIMEN Ordering Facility: [facility] Address: [address] [place] [address] Performed By: #### 5 7021-8 #### [facility] [place] [facility] CLIA [id number] [address] [place] Lymphocytes (Bld) [#/Vol] 1.96 10*3/uL Normal 1.00-4.00 [facility] Comment on above: Order Comment: Speci men Type: BLOOD SPECIMEN Ordering Facility: [facility] Address: [address] [place] [address] Performed By: #### 5 7021-8 #### [facility] [place] [facility] CLIA [id number] [address] [place] [address] Lymphocytes/100 WBC (Bld) 22.5 % Normal [facility] Comment on above: Order Comment: Speci men Type: BLOOD SPECIMEN Ordering Facility: [facility] Address: [address] [place] [address] Performed By: #### 5 7021-8 #### [facility] [place] [facility] CLIA [id number] [address] [place] [address] [place] MCH (RBC) [Entitic mass] 32.2 pg Normal 26.0-34.0 [facility] Comment on above: Order Comment: Speci men Type: BLOOD SPECIMEN Ordering Facility: [facility] Address: [address] [place] [address] Performed By: #### 5 7021-8 #### [facility] [place] [facility] CLIA [id number] [address] [place] [address] OF [place] MCHC (RBC) [Mass/Vol] 34.1 g/dL Normal 30.5-36.0 [facility] Comment on above: Order Comment: Speci men Type: BLOOD SPECIMEN Ordering Facility: [facility] Address: [address] [place] [address] Performed By: #### 5 7021-8 #### [facility] [place] [facility] CLIA [id number] [address] [place] MCV (RBC) [Entitic vol] 94.3 fL Normal 80.0-100.0 [facility] Comment on above: Order Comment: Speci men Type: BLOOD SPECIMEN Ordering Facility: [facility] Address: [address] [place] [address] Performed By: #### 5 7021-8 #### [facility] [place] [facility] CLIA [id number] [address] [place] Monocytes (Bld) [#/Vol] 0.53 10*3/uL Normal <0.87 [facility] Comment on above: Order Comment: Speci men Type: BLOOD SPECIMEN Ordering Facility: [facility] Address: [address] [place] [address] Performed By: #### 5 7021-8 #### [facility] [place] [facility] CLIA [id number] [address] [place] Monocytes/100 WBC (Bld) 6.1 % Normal [facility] Comment on above: Order Comment: Speci men Type: BLOOD SPECIMEN Ordering Facility: [facility] Address: [address] [place] [address] Performed By: #### 5 7021-8 #### [facility] [place] [facility] CLIA [id number] [address] [place] [address] [place] Neutrophils (Bld) [#/Vol] 6.01 10*3/uL Normal 1.45-7.50 [facility] Comment on above: Order Comment: Speci men Type: BLOOD SPECIMEN Ordering Facility: [facility] Address: [address] [place] [address] Performed By: #### 5 7021-8 #### [facility] [place] [facility] CLIA [id number] [address] [place] [address] [place] Neutrophils/100 WBC (Bld) 68.9 % Normal [facility] Comment on above: Order Comment: Speci men Type: BLOOD SPECIMEN Ordering Facility: [facility] Address: [address] [place] [address] Performed By: #### 5 7021-8 #### [facility] [place] [facility] CLIA [id number] [address] [place] [address] [place] Nucleated RBC (Bld) [#/Vol] Normal [facility] Comment on above: Order Comment: Speci men Type: BLOOD SPECIMEN Ordering Facility: [facility] Address: [address] [place] [address] Performed By: #### 5 7021-8 #### [facility] [place] [facility] CLIA [id number] [address] [place] [address] [place] Nucleated RBC/100 WBC (Bld) [Ratio] Normal [facility] Comment on above: Order Comment: Speci men Type: BLOOD SPECIMEN Ordering Facility: [facility] Address: [address] [place] [address] Performed By: #### 5 7021-8 #### [facility] [place] [facility] CLIA [id number] [address] [place] [address] [place] Platelet mean volume (Bld) [Entitic vol] 9.9 fL Normal 9.0-12.7 [facility] Comment on above: Order Comment: Speci men Type: BLOOD SPECIMEN Ordering Facility: [facility] Address: [address] [place] [address] Performed By: #### 5 7021-8 #### [facility] [place] [facility] CLIA [id number] [address] [place] [address] [place] Platelets (Bld) [#/Vol] 240 10*3/uL Normal 150-400 [facility] Comment on above: Order Comment: Speci men Type: BLOOD SPECIMEN Ordering Facility: [facility] Address: [address] [place] [address] Performed By: #### 5 7021-8 #### [facility] [place] [facility] CLIA [id number] [address] [place] [address] [place] [facility] [place] RBC (Bld) [#/Vol] 4.35 10*6/uL Normal 3.90-5.20 [facility] Comment on above: Order Comment: Speci men Type: BLOOD SPECIMEN Ordering Facility: [facility] Address: [address] [place] [address] Performed By: #### 5 7021-8 #### [facility] CLIA [id number] [address] [place] [address] [facility] WBC (Bld) [#/Vol] 8.72 10*3/uL Normal 3.70-11.00 [facility] Comment on above: Order Comment: Speci men Type: BLOOD SPECIMEN Ordering Facility: [facility] Address: [address] [place] [address] Performed By: #### 5 7021-8 #### [facility] CLIA [id number] [address] [place], [place] [address] [facility] ED NOTEon 06-11-2022 ED NOTE HNO ID: [id number] Author: Marce Heath RN Service: Emergency Medicine Author Type: Registered Nurse Type: ED Notes Filed: 06/11/2022 7:27 PM Note Text: Pt has been going to PCP for ongoing issues with possible gluten intolerance Pt has been having difficulty swallowing since Saturday with some chest pain. Pt went to PCP today for same thing, was given shot of toradol but is not feeling better. PT reports PCP told her if she is not feeling better to go to ED. Pt reports difficulty swallowing but is able to manage secretions. Normal [facility] ED PROV NOTEon 06-11-2022 ED PROV NOTE HNO ID: [id number] Author: Mima Adan DO Service: Emergency Medicine Author Type: Physician Type: ED Provider Notes Filed: 06/11/2022 8:36 PM Note Text: ED Provider Note Patient Name: Corby Hendrickson : 1985 SERVICE DATE: 06/11/22 History Patient presents with: Difficulty Swallowing Patient is a 37-year-old female history of celiac disease who states that on Saturday she had vomiting and diarrhea. Vomited for 4 hours straight. Since then has had some chest pain feels like there is a lump in her sore throat and has had some difficulty swallowing. The chest pain feels pressure-like nonradiating not worse with activity or exertion She has had no shortness of breath no coughing no further episodes of vomiting or diarrhea. She states there was no blood in her stool or emesis she has not had any fevers there is been no other sick contacts at home. She states she went to see her primary care physician and was given a shot of Toradol was told if she was not feeling any better then she should come to the emergency department and so she presents here for evaluation. She states she has not taken anything for her dysphagia. PAST MEDICAL HISTORY Diagnosis Date NEGATIVE MEDICAL HISTORY PAST SURGICAL HISTORY Procedure Laterality Date OFFICE LEEP 2008 WARR[place] 1 TOOTH EXTRACTION x4 wisdom teeth FAMILY HISTORY Problem Relation Age of Onset None Mother None Sister Hypertension Father No Family History Other female/colon/prostate CA Social History Tobacco Use Smoking status: Former Types: Cigarettes Quit date: 01/11/2011 Years since quittin.4 Smokeless tobacco: Never Vaping Use Vaping Use: Never used Substance and Sexual Activity Alcohol use: Yes Comment: social Drug use: No Sexual activity: Yes ALLERGIES No Known Allergies Review of Systems Constitutional: Negative for chills and fever. HENT: Positive for sore throat. Respiratory: Positive for chest tightness. Negative for cough, choking and shortness of breath. All other systems reviewed and are negative. Physical Exam Vitals [06/11/22 1910] BP Pulse Temp Temp src Resp SpO2 Weight Height 129/68 74 36.6 ?C (97.8 ?F) Temporal 14 100 % 59 kg (130 lb) 1.499 m (4' 11) Physical Exam Vitals and nursing note reviewed. Exam conducted with a glass cleaner present. Constitutional: General: She is not in acute distress. Appearance: She is normal weight. She is not ill-appearing. HENT: Head: Normocephalic and atraumatic. Mouth/Throat: Mouth: Mucous membranes are moist. Pharynx: Oropharynx is clear. No oropharyngeal exudate or posterior oropharyngeal erythema. Eyes: General: No scleral icterus. Extraocular Movements: Extraocular movements intact. Pupils: Pupils are equal, round, and reactive to light. Cardiovascular: Rate and Rhythm: Normal rate and regular rhythm. Pulses: Normal pulses. Heart sounds: Normal heart sounds. Pulmonary: Effort: Pulmonary effort is normal. No respiratory distress. Breath sounds: Normal breath sounds. No stridor. No wheezing, rhonchi or rales. Abdominal: General: Bowel sounds are normal. There is no distension. Palpations: Abdomen is soft. Tenderness: There is no abdominal tenderness. There is no guarding. Musculoskeletal: General: No swelling or tenderness. Normal range of motion. Right lower leg: No edema. Left lower leg: No edema. Skin: General: Skin is warm and dry. Capillary Refill: Capillary refill takes less than 2 seconds. Coloration: Skin is not jaundiced. Findings: No bruising. Neurological: General: No focal deficit present. Mental Status: She is alert and oriented to person, place, and time. Psychiatric: Mood and Affect: Mood normal. Behavior: Behavior normal. Diagnostic Testing ED Labs Ordered and Reviewed CBC + DIFF Narrative: This is an appended report. These results have been appended to a previously verified report. BASIC METABOLIC PNL HIGH SENSITIVITY TROPONIN T Procedures ED Course / Clinical Impression Clinical Impressions as of 06/11/222034 Esophagitis Dysphagia, unspecified type MDM / Disposition / Plan Patient is a 37-year-old who presents emerged part with chest pain following episodes of vomiting and diarrhea on Saturday. She has had pain with swallowing. Suspect that she likely has some irritation of her esophagus causing some painful swallowing. We will give the patient a GI cocktail we will do a chest x-ray as she states her doctor was concerned for potential aspiration pneumonia we will do an EKG troponin check baseline lab work. EKG shows no evidence of ischemia patient's chest x-ray shows no acute cardiopulmonary process. No pneumomediastinum. Patient's basic metabolic panel shows creatinine 1.10 glucose is normal at 97 sodium is normal at 139 CBC is within normal limits high sensitive troponin is less than 6. At this time I feel that the amy (more content not included)... Normal [facility] HIGH SENSITIVITY TROPONIN To n 06-11-2022 HIGH SENSITIVITY KAYLEE <6 Normal <12 [facility] Comment on above: Order Comment: Speci men Type: BLOOD SPECIMEN Ordering Facility: [facility] Address: [address] [place], [place] [address] [address] Result Comment: When assessing risk for acute coronary syndromes: In patients undergoing blood draw greater than or equal to 2 hours from symptom onset, with history of very low to moderate risk and non-ischemic ECG, an initial hs-Troponin T less than 12 ng/L AND a 1 hour delta hs-Troponin T less than 3 ng/L should be considered very low risk for 30 day MACE. Performed By: #### H STNT #### [facility] CLIA [id number] [address] [place] [address] [facility] XR CHEST 2V FRONTAL/LATon XR CHEST 2V FRONTAL/LAT * * *Final Report* * * DATE OF EXAM: Jun 11 2022 8:05PM LDX 5291 - XR CHEST 2V FRONTAL/LAT / PROCEDURE REASON: Chest pain, nonspecific * * * * Physician Interpretation * * * * EXAMINATION: CHEST RADIOGRAPH (2 VIEW FRONTAL and LATERAL) CLINICAL HISTORY: Chest pain, nonspecific MQ: [id number] EXAM DATE/TIME: 06/11/2022 8:05 PM COMPARISON: No relevant prior studies available. RESULT: Lines, tubes, and devices: None. Lungs and pleura: No consolidation. No pleural effusion. No pneumothorax. Cardiomediastinal silhouette: Normal cardiomediastinal silhouette. Bones and soft tissues: Unremarkable. IMPRESSION: No radiographic evidence of acute cardiopulmonary process. Voice Writing Reporter: OFE Transcribe Date/Time: Jun 11 2022 8:20P Dictated by : ERIN SOLARES MD This examination was interpreted and the report reviewed and electronically signed by: ERIN SOLARES MD on Jun 11 2022 8:23PM EST [id number] Normal [facility] CBC (INCLUDES DIFF/PLT)on Basophils (Bld) [#/Vol] 0.084 10*3/uL Normal 0-200 [facility] Comment on above: Performed By: #### 1 0231, 0602 #### [facility] [address] [place] [address], [address] [place] [address] County Engineer: Jeffery Ibarra MD Basophils/100 WBC (Bld) 0.9 % Normal [facility] Comment on above: Performed By: #### 1 0231, 6399 #### [facility] of [place] [address] County Engineer: Jeffery Ibarra MD Eosinophils (Bld) [#/Vol] 0.223 10*3/uL Normal 15-500 [facility] Comment on above: Performed By: #### 1 0231, 6399 #### [facility] [place] [address] County Engineer: Jeffery Ibarra MD Eosinophils/100 WBC (Bld) 2.4 % Normal [facility] Comment on above: Performed By: #### 1 0231, 6399 #### [facility] [place] [address] County Engineer: Jeffery Ibarra MD Erythrocyte distribution width (RBC) [Ratio] 12.0 % Normal 11.0-15.0 [facility] Comment on above: Performed By: #### 1 023, 6399 #### [facility] [place] [address] County Engineer: Jeffery Ibarra MD Hematocrit (Bld) [Volume fraction] 42.3 % Normal 35.0-45.0 [facility] Comment on above: Performed By: #### 1 023, 6399 #### [facility] [place] [address] County Engineer: Jeffery Ibarra MD Hemoglobin (Bld) [Mass/Vol] 14.5 g/dL Normal 11.7-15.5 [facility] Comment on above: Performed By: #### 1 0231, 6399 #### [facility] [place] [address] County Engineer: Jeffery Ibarra MD Lymphocytes (Bld) [#/Vol] 1.841 10*3/uL Normal 850-3900 [facility] Comment on above: Performed By: #### 1 0231, 6399 #### [facility] of [address] [place] [address] County Engineer: Jeffery Ibarra MD Lymphocytes/100 WBC (Bld) 19.8 % Normal [facility] Comment on above: Performed By: #### 1 0231, 6399 #### [facility] [place] [address] County Engineer: Jeffery Ibarra MD MCH (RBC) [Entitic mass] 31.9 pg Normal 27.0-33.0 [facility] Comment on above: Performed By: #### 1 0231, 6399 #### [facility] [place] [address] County Engineer: Jeffery Ibarra MD MCHC (RBC) [Mass/Vol] 34.3 g/dL Normal 32.0-36.[address] [facility] Comment on above: Performed By: #### 1 1, 6399 #### [facility] [place] [address] County Engineer: Jeffery Ibarra MD MCV (RBC) [Entitic vol] 93.2 fL Normal 80.0-100.0 [facility] Comment on above: Performed By: #### 1 0231, 6399 #### [facility] [place] [address] County Engineer: Jeffery Ibarra MD Monocytes (Bld) [#/Vol] 0.642 10*3/uL Normal 200-950 [facility] Comment on above: Performed By: #### 1 0231, 6399 #### [facility] [place] [address] County Engineer: Jeffery Ibarra MD Monocytes/100 WBC (Bld) 6.9 % Normal [facility] Comment on above: Performed By: #### 1 0231, 6399 #### [facility] [place] [address] County Engineer: Jeffery Ibarra MD Neutrophils (Bld) [#/Vol] 6.51 10*3/uL Normal 3946-2570 [facility] Comment on above: Performed By: #### 1 0231, 6399 #### [facility] [place] [address] County Engineer: Jeffery Ibarra MD Neutrophils/100 WBC (Bld) 70 % Normal [facility] Comment on above: Performed By: #### 1 0231, 6399 #### [facility] of [address], [address] [place] [address] County Engineer: Jeffery Ibarra MD Platelet mean volume (Bld) [Entitic vol] 10.2 fL Normal 7.5-12.5 [facility] Comment on above: Performed By: #### 1 0231, 6399 #### [facility] [place] [address] County Engineer: Jeffery Ibarra MD Platelets (Bld) [#/Vol] 290 10*3/uL Normal 140-400 [facility] Comment on above: Performed By: #### 1 0231, 6399 #### [facility] of [address], [address] [place] [address] County Engineer: Jeffery Ibarra MD RBC (Bld) [#/Vol] 4.54 10*6/uL Normal 3.80-5.10 [facility] Comment on above: Performed By: #### 1 0231, 6399 #### [facility] [place] [address] County Engineer: Jeffery Ibarra MD WBC (Bld) [#/Vol] 9.3 10*3/uL Normal 3.8-10.8 [facility] Comment on above: Performed By: #### 1 0231, 6399 #### [facility] [place] [address] County Engineer: Jeffery Ibarra MD COMPREHENSIVE METABOLIC PANE [facility] 08-16-2020 Albumin [Mass/Vol] 4.1 g/dL Normal 3.6-5.1 [facility] Comment on above: Performed By: #### 1 0231, 6399 #### [facility] of [address], [address] [place] [address] County Engineer: Jeffery Ibarra MD Albumin/Globulin [Mass ratio] 1.8 {ratio} Normal 1.0-2.5 [facility] Comment on above: Performed By: #### 1 0231, [id number] #### [facility] of [address], [address] [place] [address] County Engineer: Jeffery bIarra MD ALP [Catalytic activity/Vol] 38 U/L Normal 31-125 [facility] Comment on above: Performed By: #### 1 0231, [id number] #### [facility] of [address], [address] [place] [address] County Engineer: Jeffery Ibarra MD ALT [Catalytic activity/Vol] 13 U/L Normal 6-29 [facility] Comment on above: Performed By: #### 1 0231, [id number] #### [facility] of [address], [address] [place] [address] County Engineer: Jeffery Ibarra MD AST [Catalytic activity/Vol] 12 U/L Normal 10-30 [facility] Comment on above: Performed By: #### 1 0231, [id number] #### [facility] of [address], [address] [place] [address] County Engineer: Jeffery Ibarra MD Bilirubin [Mass/Vol] 1.2 mg/dL Normal 0.2-1.2 [facility] Comment on above: Performed By: #### 1 0231, [id number] #### [facility] of [address], [address] [place] [address] County Engineer: Jeffery Ibarra MD BUN/CREATININE RATIO NOT APPLICABLE Normal 6-22 [facility] Comment on above: Performed By: #### 1 0231, [id number] #### [facility] of [address], [address] [place] [address] County Engineer: Jeffery Ibarra MD Calcium [Mass/Vol] 9.2 mg/dL Normal 8.6-10.2 [facility] Comment on above: Performed By: #### 1 0231, 6399 #### [facility] of [place] [address] County Engineer: Jeffery Ibarra MD Chloride [Moles/Vol] 107 mmol/L Normal 98-110 [facility] Comment on above: Performed By: #### 1 0231, 6399 #### [facility] of [place] [address] County Engineer: Jeffery Ibarra MD CO2 [Moles/Vol] 24 mmol/L Normal 20-32 [facility] Comment on above: Performed By: #### 1 0231, 6399 #### [facility] of [place] [address] County Engineer: Jeffery Ibarra MD Creatinine [Mass/Vol] 0.88 mg/dL Normal 0.50-1.[address] [facility] Comment on above: Performed By: #### 1 0231, 6399 #### [facility] of [place] [address] County Engineer: Jeffery Ibarra MD eGFR NON-AFR. MARSHALLESE 86 mL/min/1.73m2 Normal > OR = 60 [facility] Comment on above: Performed By: #### 1 023, 6399 #### [facility] of [place] [address] County Engineer: Jeffery Ibarra MD GFR/1.73 sq M.predicted among blacks MDRD (S/P/Bld) [Vol rate/Area] 99 mL/min/{1.73_m2} Normal > OR = 60 [facility] Comment on above: Performed By: #### 1 0231, 6399 #### [facility] of [place] [address] County Engineer: Jeffery Ibarra MD Globulin (S) [Mass/Vol] 2.3 g/dL Normal 1.9-3.7 [facility] Comment on above: Performed By: #### 1 0231, 6399 #### [facility] [place] [address] County Engineer: Jeffery Ibarra MD Glucose [Mass/Vol] 103 mg/dL High 65-99 [facility] Comment on above: Result Comment: Fasting reference interval For someone without known diabetes, a glucose value between 100 and 125 mg/dL is consistent with prediabetes and should be confirmed with a follow-up test. Performed By: #### 1 0231, 6399 #### [facility] [place] [address] County Engineer: Jeffery Ibarra MD Potassium [Moles/Vol] 4.1 mmol/L Normal 3.5-5.[address] [facility] Comment on above: Performed By: #### 1 0231, 6399 #### [facility] [place] [address] County Engineer: Jeffery Ibarra MD Protein [Mass/Vol] 6.4 g/dL Normal 6.1-8.1 [facility] Comment on above: Performed By: #### 1 0231, 6399 #### [facility] [place] [address] County Engineer: Jeffery Ibarra MD Sodium [Moles/Vol] 139 mmol/L Normal 135-146 [facility] Comment on above: Performed By: #### 1 0231, 6399 #### [facility] [place] [address] County Engineer: Jeffery Ibarra MD Urea nitrogen [Mass/Vol] 17 mg/dL Normal 7-25 [facility] Comment on above: Performed By: #### 1 0231, 6399 #### [facility] [place] [address] County Engineer: Jeffery Ibarra MD US Abdomen Limitedon 018 US Abdomen Limited Patient Name: CORBY ARCEO Ultrasound Exam Date/Time 07/04/2017 07:50:22 EDT Exam US Abdomen Limited Ordering Physician NELLI PENNY ANDREA Accession Number [id number] CPT4 Codes 56172 () Reason For Exam abd pain Report Examination: Right upper quadrant ultrasound Clinical Indication: Right upper quadrant pain Comparison: None Findings: Multiplanar luque scale sonographic images were obtained through the right upper quadrant. Static sonographic images were then presented for radiologic interpretation. The liver is normal in size and echogenicity without focal parenchymal lesion. Gallbladder is normally distended and demonstrates no evidence of cholelithiasis, gallbladder wall thickening, or pericholecystic inflammation. There is no evidence of intra or extrahepatic biliary dilatation and the common bile duct measures 2 mm which is within normal limits. Technologist denotes negative sonographic Lyon sign. Visualized portions of the pancreas are normal in echogenicity and demonstrate no evidence of pancreatic lesion or peripancreatic fluid collection. Right kidney measures 9.6 cm and is normal in echogenicity and demonstrates no evidence of hydronephrosis or shadowing renal calculus. There is no evidence of abdominal ascites. Impression: Unremarkable ultrasound of the right upper quadrant. Report Dictated on Final Dictated: 07/04/2017 8:05 am Dictating Physician: MD CARDOSO ANTHONY J Signed Date and Time: 07/04/2017 8:05 am Signed by: MD CARDOSO ANTHONY J Transcribed Date and Time: 07/04/2017 8:05 Normal [facility] Vital Signs Date Time Vital Sign Value Performing Clinician Facility 09-30-2024 08:44-0400 Body height 149.9 cm Yoandy Rainey PA-C Work Phone: [facility] 09-30-2024 08:44-0400 Body mass index (BMI) [Ratio] 26.26 kg/m2 Yoandy Rainey PA-C Work Phone: [facility] 09-30-2024 08:44-0400 Body temperature 98.29 [degF] Yoandy Rainey PA-C Work Phone: [facility] 09-30-2024 08:44-0400 Body weight 58.97 kg Yoandy Saurav PA-C Work Phone: [facility] 09-30-2024 08:44-0400 Diastolic blood pressure 66 mm[Hg] Yoandy Saurav PA-C Work Phone: [facility] 09-30-2024 08:44-0400 Heart rate 68 /min Yoandy Saurav PA-C Work Phone: [facility] 09-30-2024 08:44-0400 Respiratory rate 16 /min Yoandy Saurav PA-C Work Phone: [facility] 09-30-2024 08:44-0400 SaO2% (BldA) [Mass fraction] 100 % Yoandy Saurav PA-C Work Phone: [facility] 09-30-2024 08:44-0400 Systolic blood pressure 101 mm[Hg] Yoandy Saurav PA-C Work Phone: [facility] 06-18-2024 08:44-0400 Body height 149.86 cm Angel ADAMS Work Phone: [facility] 06-18-2024 08:44-0400 Body mass index (BMI) [Ratio] 26.5 kg/m2 Angel Penny PA Work Phone: [facility] 06-18-2024 08:44-0400 Body weight 59.59 kg Angel Penny PA Work Phone: [facility] 06-18-2024 08:44-0400 Diastolic blood pressure 77 mm[Hg] Angel Penny PA Work Phone: [facility] 06-18-2024 08:44-0400 Systolic blood pressure 116 mm[Hg] Angel Penny PA Work Phone: [facility] 03-23-2024 08:09-0500 Body height 149.9 cm Linden Thomason MD Work Phone: [facility] 03-23-2024 08:09-0500 Body mass index (BMI) [Ratio] 26.26 kg/m2 Linden Thomason MD Work Phone: [facility] 03-23-2024 08:09-0500 Body weight 58.97 kg Linden Thomason MD Work Phone: [facility] Encounters Encounter Date Encounter Type Care Provider Facility Start: 12-25-2024 ambulatory Angel ADAMS Fac ility:[facility] Start: 12-21-2024 ambulatory Angel ADAMS Fac ility:[facility] Start: 12-21-2024 End: 12-21-2024 ambulatory Angel ADAMS Facility:[facility] Start: 12-08-2024 End: 12-08-[address] Brandie Watt MD -[facility] Work Phone: Start: 12-08-2024 End: 12-08-2024 ambulatory Angel ADAMS Work Phone: [facility] Start: 09-30-2024 End: 09-30-2024 Office outpatient new 45 minutes Yoandy Rainey PA-C Work Phone: [facility] Comment on above: Acute right-sided lo w back pain with right-sided sciatica (Primary Dx) Start: 08-25-2024 ambulatory Angel ADAMS Fac ility:[facility] Start: 06-23-2024 End: 06-23-2024 ambulatory Angel ADAMS Work Phone: [facility] Work Phone: Start: 06-23-2024 End: 06-23-2024 Patient encounter procedure Patsy COSBY -[facility] Work Phone: Start: 06-23-2024 End: 06-23-2024 ambulatory Patsy Mcpherson Facility:[facility] Start: 06-18-2024 End: 06-18-2024 Patient encounter procedure Patsy COSBY -[facility] Work Phone: Start: 06-18-2024 End: 06-18-2024 Patient encounter status Patsy Mcpherson [employer]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 [facility] Start: 06-18-2024 End: 06-18-2024 ambulatory Angel ADAMS Work Phone: [facility] Work Phone: Start: 06-18-2024 End: 06-18-2024 ambulatory Patsy Mcpherson Facility:[facility] Start: 06-12-2024 End: 06-12-2024 Subsequent hospital visit by physician [facility] Comment on above: Arrived Start: 06-12-2024 End: 06-12-2024 Office outpatient visit 25 minutes Linden Thomason MD Work Phone: [facility] Comment on above: Right tennis elbow ( Primary Dx) Start: 03-23-2024 End: 03-23-2024 Office outpatient visit 25 minutes Linden Thomason MD Work Phone: [facility] Comment on above: Right tennis elbow ( Primary Dx); Right elbow pain Start: 03-23-2024 ambulatory ANGEL THOMASON MD~[id number] [facility] Start: 03-20-2024 End: 03-20-2024 Subsequent hospital visit by physician Anastasia Mcmillan110 X-Ray 1 [facility] Comment on above: Right elbow pain Start: 07-24-2023 End: 07-24-2023 Office outpatient visit 15 minutes Terrance Kauffman MD Work Phone: [facility] Comment on above: Tendinopathy of righ t gluteus medius Start: 07-24-2023 End: 07-24-2023 Subsequent hospital visit by physician [facility] Comment on above: Arrived Start: 07-09-2023 End: 07-09-2023 Subsequent hospital visit by physician Anastasia Mcmillan Mobile [facility] Comment on above: Trochanteric bursiti s of left hip Start: 06-26-2023 End: 06-26-2023 Phys/qhp telephone evaluation 5-10 min Terrance Kauffman MD Work Phone: [facility] Comment on above: Trochanteric bursiti s of left hip Start: 06-10-2023 End: 06-10-2023 Office outpatient visit 15 minutes Terrance Kauffman MD Work Phone: [facility] Comment on above: Femoral acetabular i mpingement (Primary Dx); Trochanteric bursitis of left hip Start: 05-06-2023 End: 07-15-2023 ambulatory ANGEL PENNY Facility:[facility] Start: 04-22-2023 End: 04-22-2023 Office outpatient new 45 minutes Terrance Kauffman MD Work Phone: [facility] Comment on above: Femoral acetabular i mpingement (Primary Dx); Right hip pain Start: 01-14-2023 End: 03-14-2023 ambulatory ANGEL SKELTONNIMESH Facility:[facility] Start: 12-10-2022 ambulatory ANGEL PAINTINGLAM Faci lity:[facility] Start: 11-28-2022 End: 11-29-2022 [facility] Start: 09-17-2022 End: 09-17-2022 ambulatory CONRAD THOMPSON Facility:[facility] Start: 08-13-2022 End: 08-14-2022 ambulatory COLIN STEIN MD Facility:[facility] Start: 07-31-2022 End: 08-01-2022 ambulatory ANGEL PENNY Facility:[id number] Start: 07-19-2022 End: 07-20-2022 [facility] Start: 06-11-2022 End: 06-11-2022 Emergency department patient visit CONRAD THOMPSON Facility:[facility] Start: 07-04-2017 [facility] Date Procedure Procedure Detail Performing Clinician Start: 09-30-2024 Urine test visual color cmprsn meths Yoandy Rainey PA-C Work Phone: Start: 06-23-2024 Pelvic echography Sarath ADAMS Work Phone: Start: 06-12-2024 Injection single ten don origin/insertion Linden Thomason MD Work Phone: Start: 06-12-2024 Us guidance needle placement img s&i Linden Thomason MD Work Phone: Start: 06-12-2024 US Abdomen Linden Suarez MD Work Phone: Start: 07-24-2023 US Abdomen Terrance marshall MD Work Phone: Start: 07-09-2023 Mri any jt lower ext rem w/o contrast matrl Terrance Kauffman MD Work Phone: Start: 06-10-2023 Arthrocentesis aspir &/inj major jt/bursa w/us Uday Hernandez DO Work Phone: Plan of Treatment Date Care Activity Detail Author Start: 2046 RSV patient s and/or patients aged 60+ years (1 - 1-dose 60+ series) RSV patients and/or patients aged 60+ years (1 - 1-dose 60+ series) [facility] Start: 2036 Zoster Vaccines (1 o f 2) Zoster Vaccines (1 of 2) [facility] Start: 11-30-2024 Influenza vaccination Influenza Vacc ine (#1) [facility] Start: 06-18-2024 Liquid based cervica l cytology screening [facility] Start: 05-15-2024 End: 05-15-2024 Patient encounter procedure 05/15/2024 8:00 AM EST Office Visit [facility] [address] [place] [address] [place] [address] Department [place] [address] [facility] Start: 03-23-2024 End: 03-23-2024 Patient encounter procedure 03/23/2024 8:00 AM EST Office Visit [facility] [address] [place] [address] [place] [address] [address] Department [place] [address] [facility] Start: 12-01-2023 COVID-19 Vaccine ( season) COVID-19 Vaccine ( season) [facility] Start: 12-01-2023 Influenza vaccination U [facility] Start: 07-10-2023 End: 07-10-2023 Telemedicine consultation with patient 07/10/2023 4:45 PM EDT Telemedicine [place] [address] [address] [facility] [address] [place] [address] [place] [address] [address] Department [place] [address] [facility] Start: 07-09-2023 End: 07-09-2023 Patient encounter procedure 07/09/2023 3:45 PM EDT Appointment [facility] [address] [facility] [address] [place] [id number] [facility] Start: 06-26-2023 End: 06-25-2024 MR Hip - right WO contrast MR hip right wo IV contrast Imaging Routine Trochanteric bursitis of left hip Expected: 06/26/2023, Expires: 06/25/2024 [facility] Service Area Work Phone: Comment on above: Expected: 06/26/2023 , Expires: 06/25/2024 Start: 11-30-2022 COVID-19 Vaccine ( season) COVID-19 Vaccine ( season) [facility] Start: 11-30-2022 Influenza vaccination Influenza Vacc ine (#1) [facility] Start: 2008 DTaP/Tdap/Td Vaccine s (1 - Tdap) DTaP/Tdap/Td Vaccines (1 - Tdap) [facility] Start: 2007 Screening for malign ant neoplasm of cervix [facility] Start: 2005 Hepatitis B Vaccines (1 of 3 - 19+ 3-dose series) Hepatitis B Vaccines (1 of 3 - 19+ 3-dose series) [facility] Start: 2004 Diabetes mellitus screening Diabetes Screening [facility] Start: 2004 Hepatitis C screening Hepatitis C Sc reening [facility] Start: 1999 Varicella vaccination Varicell a Vaccines (1 of 2 - 13+ 2-dose series) [facility] Start: 1987 MMR Vaccines (1 of 1 - Standard series) MMR Vaccines (1 of 1 - Standard series) [facility] Start: 1987 Varicella vaccination Varicell a Vaccines (1 of 2 - 2-dose childhood series) [facility] Start: 1986 Hepatitis B Vaccines (1 of 3 - 3-dose series) Hepatitis B Vaccines (1 of 3 - 3-dose series) [facility] Start: 1986 HIV screening HIV Screening [facility] Start: 1986 Lipid panel Lipid Panel [facility] Start: 1986 Yearly Adult Physical Yearly Adult P hysical [facility] Bacteria identified in Urine by Culture Urine Culture Microbiology Routine Acute right-sided low back pain with right-sided sciatica Ordered: 09/30/2024 Urgent Care Work Phone: Comment on above: Ordered: 09/30/2024 Cytology report of Cervical or vaginal smear or scraping Cyto stain.thin prep [facility] Path report.final Dx Spec [facility] End: 03-20-2024 XR Elbow - right 3 Views [facility] Service Area Work Phone: Comment on above: Once for 1 Occurrenc es starting 03/20/2024 until 03/20/2024 Payers Date Payer Category Payer Unknown [id number] 2024 Self-pay 2023 Managed Care (Private) [facility] HMO [id number] 2022 Unknown [id number] 2015 Unknown [id number] 2008 Unknown 1986 Unknown [id number] [id number]. 159 1986 Unknown [id number] [id number]. 159 1986 Unknown [id number] 2.16840.1.220271.3.579.2. 159 1986 Unknown [id number] 2.840.1.261076.3.579.2. 159 1986 Unknown [id number] 2.16840.1.196723.3.579.2. 159 1986 Unknown [id number] 2.16840.1.315210.3.579.2. 159 1986 Unknown [id number] 2.16840.1.294917.3.579.2. 159 1986 Unknown [id number] 2.16840.1.435461.3.579.2. 598 Unknown [id number] 2.16840.1.244871.3.579.2. 462 Unknown [id number] 2.16840.1.005520.3.579.2. 462 Unknown [id number] 2.16840.1.325909.3.579.2. 462 Unknown [id number] 2.16840.1.116860.3.579.2. 462 Unknown [id number] 2.16840.1.586908.3.579.2. 462 Unknown [id number] [id number]. 462 Unknown [id number] [id number]. 462 Unknown [id number] [id number]. 462 Social History Date Type Detail Facility Tobacco smoking stat us NHIS Tobacco smoking consumption unknown [facility] Work Phone: Start: 1985 Sex Assigned At Not on file [facility] Work Phone: Start: 06-10-2023 End: 04-14-2024 Gender identity Not on file [facility] Work Phone: Start: 04-12-2023 End: 05-26-2024 Exposure to SARS-CoV-2 (event) Not sure [facility] Start: 06-10-2023 End: 06-18-2024 Tobacco smoking status NHIS Never smoked tobacco [facility] Work Phone: Start: 06-10-2023 Tobacco use and exposure Smokeless tobacco non-user [facility] Work Phone: Start: 06-10-2023 End: 04-14-2024 History of Social function [facility] Work Phone: Start: 06-16-2023 End: 06-26-2023 Exposure to SARS-CoV-2 (event) Unable to assess [facility] Start: 03-22-2024 Gender identity Identifies as female gender (finding) [facility] Start: 03-22-2024 Sexual orientation Heterosexual (finding) [facility] Work Phone: Start: 06-26-2024 End: 06-29-2024 Sex Female (finding) [facility] Start: 1985 Sex Assigned At Female [facility] Start: 12-08-2024 Tobacco smoking status NHIS Ex-smoker (finding) [facility] Clinical Notes 07-31-2022 to 09-30-2024 Yoandy Rainey PA-C - 09/30/2024 8:35 AM EDT Note Date & Type Note Facility 09-30-2024 History of Present illness Narrative Subjective Patient ID: Corby HENDRICKSON is a 39 y.o. female. They present today with a chief complaint of Back Pain. Patient disposition: Home HISTORY OF PRESENT ILLNESS: This is an adult female with a PMH of episodic hip and back pain. She has seen a chiropractor for these issues previously. She admits 7 days of pain in the very low back radiating into the right hip occasionally. Pain mild to moderate and dull. Denies injury but admits extra running lately, training for a marathon. Denies any bowel/bladder dysfunction including urinary retention or bowel incontinence, denies abdominal pain, denies saddle paresthesias/anaesthesia, denies leg weakness, denies fever/chills/sweats, denies history of IV drug use or cancer. Past Medical History Allergies as of 09/30/2024 (No Known Allergies) Prescriptions Prior to Admission[1] Medical History[2] Surgical History[3] reports that she has never smoked. She has never used smokeless tobacco. Review of Systems Negative except as documented in the History of Present Illness. Objective Vitals: 09/30/24 0844 BP: 101/66 BP Location: Right arm Patient Position: Standing BP Cuff Size: Adult Pulse: 68 Resp: 16 Temp: 36.8 C (98.3 F) TempSrc: Oral SpO2: 100% Weight: 59 kg (130 lb) Height: (!) 1.499 m (4' 11) Patient's last menstrual period was 09/06/2024 (approximate). PHYSICAL EXAMINATION: CONSTITUTIONAL: well-appearing, nontoxic EYES: No scleral icterus or orbital trauma noted. No conjunctival injection. PERRLA. EOMI b/l. No nystagmus. HEENT: Head and face are unremarkable and atraumatic. Mucous membranes moist. Nares are patent without copious rhinorrhea. No lymphadenopathy. LUNGS: CTAB, no r/r/w. No dullness to percussion. CARDIOVASCULAR: Normal dorsalis pedis and posterior tibialis pulses bilaterally. ABDOMEN: Nontender, nondistended, with no obvious masses, and no peritoneal signs. No bruits heard on auscultation, normal bowel sounds in 4 quadrants. MUSCULOSKELETAL: Moving all extremities. Ankle strength is 5 out of 5 bilateral flexion and extension. The thoracic and cervical spine are nontender throughout. Lumbosacral spine is NTTP Straight leg raise is neg bl Gait nl. Spine ROM limited by pain on flexion. SKIN: Normal skin exam of the abdomen and back. NEURO: Normal baseline mental status. Patellar reflexes are normal bilaterally. No decreased motor or sensation in the distal lower extremities bilaterally. No saddle anesthesia. PSYCH: Appropriate mood and affect. --- MDM: UA negative. Urine preg negative. XR interpreted by me independently demonstrated no acute nor degenerative issues. Rx steroid taper and muscle relaxer since so far refractory to NSAIDs, heat/ice and stretching. Given home exercise program printout. Will fu here PRN if not resolving as expected for simple lumbar muscle strain. The patient was screened for and is not exhibiting any of the concerning signs or symptoms associated with cauda equina syndrome in the history or on the examination today. Procedures Diagnostic study results (if any) were reviewed by Yoandy Rainey PA-C. No results found for this visit on 09/30/24. Assessment/Plan Allergies, medications, history, and pertinent labs/EKGs/Imaging reviewed by Yoandy Rainey PA-C. Orders and Diagnoses There are no diagnoses linked to this encounter. Medical Admin Record Follow Up Instructions No follow-ups on file. Electronically signed by Yoandy Rainey PA-C 8:53 AM [1] (Not in a hospital admission) [2] No past medical history on file. [3] No past surgical history on file. 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 FINDINGS: Uterus is unremarkable with no focal masses, anteverted, measuring 7.8 x 4.6 x 3.6 cm. Bilateral ovaries are normal with preserved symmetric vascular flow. No fluid in the cul-de-sac. Endometrium is unremarkable measuring 5 mm. Cervix is normal. No intrauterine device. Bladder is normal. US/Pelvic w/ Transvaginal IMPRESSION: No suspicious sonographic findings. [facility] CC: ALEA Mcpherson; BRYAN Daley ~ Voice Writing Reporter: Signed [facility] 06-18-2024 Evaluation note Diagnosis Onset Date Resolution Encounter for infertility acute June 18, 2024 8:30am Encounter for routine gynecological examination noneactive June 18, 2024 8:30am [facility] Work Phone: 1(842) 699-558103-14-2025 History of Present illness Narrative* Linden Thomason MD - 06/12/2024 8:40 AM EDTAssociated Order(s): Hand / UE Inj/Asp: R elbow Post-Procedure Diagnose(s): Right tennis elbow Images from the original note were not included. Subjective Patient ID: Corby HENDRICKSON is a 39 y.o. female. 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 She is right-hand dominant. Her pain has been present for the last month and she does not remember any mechanism of injury or known trauma. 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 She thinks that it is likely an overuse injury and has been trying a tendon strap for possible tennis elbow. On average her pain is 8 out of 10 and is mostly located over the lateral epicondyle. She had x-rays last Saturday. She is trying to avoid oral NSAIDs because of gastrointestinal pathology. She has been icing without much relief. She would like to avoid surgery if at all p ossible. We discussed her treatment options and she is going to start using a wrist brace at night and then throughout the day is much as possible. We also discussed proper positioning of her tendon strap which she will use with activity and throughout the day is much as possible. She is going to begin using topical Voltaren at prescription dosing 3 times daily and I am also going to send her to occupational therapy where they can hopefully help her develop a home exercise program. I will then follow-up with her in about a month to see how she is feeling and whether or not we need to do a cortisone or PRP injection. Update on 06/12/2024. Patient is coming back in for her acute on chronic right elbow pain secondary to lateral epicondylitis. She has been doing occupational therapy and has been very consistent wearing her wrist brace at night. She states that she has experienced a significant amount of improvementand thinks that overall she is 50 to 75% better. She is interested in possible cortisone versus PRPinjections though because she feels like she has plateaued. No injuries. No other complaints or today. Her pain is in the similar location. Mild to moderate, worse with activity. Objective Right Elbow Exam Tenderness The patient is experiencing tenderness in the lateral epicondyle. Range of Motion The patient has normal right elbow ROM. Extension: normal Flexion: normal Pronation: normal Supination: normal Muscle Strength The patient has normal right elbow strength (Supination and wrist extension reproduce pain). Pronation: 5/5 Supination: 5/5 Tests Varus: negative Valgus: negative Tinel's sign (cubital tunnel): negative Other Erythema: absent Sensation: normal Pulse: present Comments: Pain also reproduced with middle finger extension against resistance and wrist extension against resistance. Left Elbow Exam Left elbow exam is normal. Image Results: Point of Care Ultrasound These images are not reportable by radiology and will not be interpreted by Radiologists. No new imaging Patient ID: Corby HENDRICKSON is a 39 y.o. female. Hand / UE Inj/Asp: R elbow for lateral epicondylitis on 06/12/2024 9:37 AM Indications: therapeutic and pain Details: 25 G needle, ultrasound-guided lateral approach Medications: 40 mg triamcinolone acetonide 40 mg/mL; 1 mL lidocaine 10 mg/mL (1 %) Outcome: tolerated well, no immediate complications Procedure, treatment alternatives, risks and benefits explained, specific risks discussed. Consent was given by the patient. Immediately prior to procedure a time out was called to verify the correctpatient, procedure, equipment, account support rep and site/side marked as required. Patient was prepped and draped in the usual sterile fashion. Assessment/Plan Encounter Diagnoses: Right tennis elbow Orders Placed This Encounter Hand / UE Inj/Asp Point of Care Ultrasound No follow-ups on file. We discussed her treatment options and agreed to do a right lateral epicondyle cortisone injection under ultrasound guidance. The patient understands the risk of potential common extensor tendon rupture. At this time I think that the benefits outweigh the risks especially given the fact that we areonly going to do 1 cortisone injection. We also discussed potentially doing PRP in the future versus referring for ultrasound-guided percutaneous needle tenotomy. For now she will continue with her treatment plan. She tolerated the injection well without any complications and activity modificationswere reviewed. She is going to follow-up with me as needed moving forward. Please excuse any errors in grammar or translation related to this dictation. Voice recognition software was utilized to prepare this document. Linden Thomason MD [facility] Medicine documented [facility] [place] Work Phone: [phone]) 188-782312-23-2024 History of Present illness Narrative* Linden Thomason MD - 03/23/2024 8:00 AM EST Images from the original note were not included. Subjective Patient ID: Corby HENDRICKSON is a 38 y.o. female. 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 She is right-hand dominant. Her pain has been present for the last month and she does not remember any mechanism of injury or known trauma. 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 She thinks that it is likely an overuse injury and has been trying a tendon strap for possible tennis elbow. On average her pain is 8 out of 10 and is mostly located over the lateral epicondyle. She had x-rays last Saturday. She is trying to avoid oral NSAIDs because of gastrointestinal pathology. She has been icing without much relief. She would like to avoid surgery if at all p ossible. Objective Right Elbow Exam Tenderness The patient is experiencing tenderness in the lateral epicondyle. Range of Motion The patient has normal right elbow ROM. Extension: normal Flexion: normal Pronation: normal Supination: normal Muscle Strength The patient has normal right elbow strength (Supination and wrist extension reproduce pain). Pronation: 5/5 Supination: 5/5 Tests Varus: negative Valgus: negative Tinel's sign (cubital tunnel): negative Other Erythema: absent Sensation: normal Pulse: present Comments: Pain also reproduced with middle finger extension against resistance Left Elbow Exam Left elbow exam is normal. Image Results: XR elbow right 3+ views Narrative: Interpreted By: Paul Fuentes, STUDY: XR ELBOW RIGHT 3+ VIEWS; ; 03/20/2024 3:25 pm INDICATION: Signs/Symptoms:PAIN. ,M25.521 Pain in right elbow COMPARISON: None. ACCESSION NUMBER(S): [id number] ORDERING CLINICIAN: LINDEN THOMASON FINDINGS: Right elbow, five views Small ossific fragment at the volar aspect of the elbow. There is no fracture. There is no dislocation. There are no degenerative changes. There is no lytic or sclerotic lesion. There is no soft tissue abnormality seen. There is no effusion Impression: Small intra-articular ossific bodies volarly versus remote avulsion injury to the coronoid process.. MACRO: None Signed by: Paul Gina 03/21/2024 12:23 PM Dictation workstation: [id number] X-rays of the right elbow were reviewed and interpreted by me on 03/23/2024 and did not reveal any evidence of acute injuries or fractures. Assessment/Plan Encounter Diagnoses: Right tennis elbow Right elbow pain Orders Placed This Encounter XR elbow right 3+ views Referral to Occupational Therapy No follow-ups on file. We discussed her treatment options and she is going to start using a wrist brace at night and then throughout the day is much as possible. We also discussed proper positioning of her tendon strap which she will use with activity and throughout the day is much as possible. She is going to begin using topical Voltaren at prescription dosing 3 times daily and I am also going to send her to occupational therapy where they can hopefully help her develop a home exercise program. I will then follow-upwith her in about a month to see how she is feeling and whether or not we need to do a cortisone orPRP injection. Patient was prescribed a wrist cock-up splint for [tennis elbow]. The patient has weakness, instability and/or deformity of their [right elbow] which requires stabilization from this orthosis to improve their function. Verbal and written instructions for the use, wear schedule, cleaning and application of this item were given. Patient was instructed that should the brace result in increased pain, decreased sensation, increased swelling, or an overall worsening of their medical condition, to please contact our office immediately. Orthotic management and training was provided for skin care, modifications due to healing tissues, edema changes, interruption in skin integrity, and safety precautions with the orthosis. Please excuse any errors in grammar or translation related to this dictation. Voice recognition software was utilized to prepare this document. Linden Thomason MD [facility] Sports Medicine documented in this encounterS[facility] [place] Work Phone: 1([phone]) 550-770904-24-2024 History of Present illness Narrative* Ilia Swartz V, - 07/24/2023 3:15 PM EDT FUV R hip CSI(lateral) Subjective Patient ID: Corby HENDRICKSON is a 38 y.o. female. 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 04/22/2023: In November, she ran her first half marathon which then has caused her right groin painand pelvic floor issues. She referred herself to physical therapy, which she had 1 session due to insurance issues. The only address pelvic floor things at that time, and was told to follow-up with sports medicine to have her right groin pain evaluated. Since her marathon she has done significantlyless running, but still conditioning with yoga and other exercises. She continues to have pain, only intermittently takes ibuprofen due to GI side effects. She also has some left buttock pain that isnot as severe. She also admits to years of intermittent numbness in her left toes 2-3 times a week that is worse with physical activity. This has not changed. Denies any other trauma. 06/10/2023: She returns today for follow-up of her right groin pain. She states that physical therapy makes her right hip pain worse. She was unable to tolerate meloxicam due to GI side effect, intermittently takes ibuprofen only when pain is severe. Overall her pain has not improved. 06/26/2023: Corby was last here approximately 2-1/2 weeks ago and had an ultrasound-guided lateral hip injection which did not give her much relief. She denies any new injury or trauma to the hip. She has been compliant with her restrictions. She has failed conservative treatment and so we are going to order an MRI. 07/10/2023: Corby returns virtually to discuss the results of her MRI. She has seen some improvement in the hip. She denies any new injury or trauma to the hip. 07/24/2023: She returns today for follow-up of right hip pain. MRI demonstrated mild right gluteus medius tendinosis. She continues to have a lateral right hip pain with no significant proved recently. She is interested in moving forward with a right gluteal tendon sheath injection today. She deniesany new injury or trauma of the right hip. Objective The right hip and pelvis are without obvious signs of acute bony deformity, swelling, erythema, ecchymosis or instability. Active and passive range of motion are full and pain-free. Tenderness palpation at the greater trochanter of the right hip. Log roll is negative. Straight leg raise test is negative. FADIR is negative. AILYN is negative. Crossover is negative. Hip strength is equal bilaterally. The opposite hip is otherwise nontender and stable. Assessment/Plan Encounter Diagnoses: Tendinopathy of right gluteus medius We discussed both conservative and surgical options for treatment. We agreed to do a right gluteal tendon sheath injection in the office today. Discussed risks versus benefits of having injections performed. Patient has elected to proceed with procedures. Please refer to procedure notes above. Discussed with patient to limit weightbearing activities over the next 24-48 hours, they can then progress to full activities as tolerated. Discussed with patient to avoid water submersion over the next 2days. Discussed with patient to call me immediately if they develop worsening pain, rash, erythema,or fevers. Follow-up as needed. Ilia Swartz DO Primary Care Sports Medicine Fellow Please excuse any errors in grammar or translation related to this dictation. Voice recognition software was utilized to prepare this document. Associated attestation - Terrance Kauffman MD - 07/27/2023 10:25 AM EDT Procedure Note Attestation Procedure performed by: Dr. Ilia Swartz D.O. I supervised the entire procedure. I saw and evaluated the patient. I personally obtained the horvath and critical portions of the historyand physical exam or was physically present for horvath and critical portions performed by the trainee.I reviewed the trainee's documentation and discussed the patient with the trainee. I agree with the trainee's medical decision making as documented on the trainee's note. I reviewed this patient with Dr. Ilia Swartz D.O. Terrance Kauffman M.D. Clinical Android Framework Developer, Division of Sports Medicine Primary Care Sports Medicine Department of Orthopedic Surgery [facility] Sports [facility] documented in this encounterS[facility] [place] Work Phone: 1(605) 965-598804-15-2024 NotePT Outpatient Progress Note Entered On: 06/03/2023 10:15 EST Performed On: 06/03/2023 8:49 EST by Saroj Dorantes PTA Review/Treatments Provided Total Visit Count : 5 Visit Count Reviewed? 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 She thinks that stretching her hip with the gait belt, helped a little. She noticed increased R hip pain when doing some light hiking over the weekend, pain increased to 8/10. She states she currently has 4-5/10 R hip pain. Therapeutic Exercise : Yes Neuromuscular Reeducation/ Balance : Yes Manual Therapy : Yes Saroj Dorantes PTA - 06/03/2023 8:49 EST Therapeutic Exercise Custom Therapeutic Exercise Exercise 1 Exercise 2 Exercise 3 Exercise 4 Exercise : Pelvic tilt Pillow Squeeze w/ tilt Hip ER w/ band + tilt Quad/gluteal sets w/ tilt Repetition/Time : 5 x 5 sec 10 x 5 sec 10 x 5 sec 10 x 5 sec Resist or Assist : bolster red band bolster Not Performed : X X X HEP Given : Yes Yes Yes Yes Comment : 05/06/23 05/06/23 05/06/23 05/06/23 Saroj Dorantes PTA - 06/03/2023 8:49 EST Saroj Dorantes PTA - 06/03/2023 8:49 EST Saroj Dorantes PTA - 06/03/2023 8:49 EST Saroj Dorantes PTA - 06/03/2023 8:49 EST Exercise 5 Exercise 6 Exercise 7 Exercise 8 Exercise : Abdominal curl Bridging SLR - flexion w/ tilt SLR - abduction Repetition/Time : 10 x 5 sec 10x5 sec 2 x 15 (inc 05/20) 10 x Resist or Assist : Red 0# 0# Not Performed : X X HEP Given : Yes Yes Yes Yes Comment : 05/13/23 06/03/23 05/13/23 - increase reps to 2 x 15 as pt is able 05/20/23, decreased reps due to pain 05/27/23 [employer], 06/03/2023 8:49 EST [employer], Saroj - 06/03/2023 8:49 EST [employer], Saroj - 06/03/2023 8:49 EST [employer], 06/03/2023 8:49 EST Exercise 9 Exercise 10 Exercise 11 Exercise 12 Exercise : SLR - abduction series SLR - extension Prone Quad stretch Supine hamstring stretch Repetition/Time : x 15 EA 3 x 15 sec 3 x 15 sec Resist or Assist : 0# Not Performed : X X HEP Given : Yes Comment : 05/27/23, Add knee bent 06/03/23 05/27/23 05/06/23 [employer], 06/03/2023 8:49 EST [employer], 06/03/2023 8:49 EST [employer], 06/03/2023 8:49 EST [employer], 06/03/2023 8:49 EST Exercise 13 Exercise 15 Exercise 16 Exercise 17 Exercise : Seated Piriformis stretch Bike SH = 1 Calf stretch - incline Standing Hamstring stretch Repetition/Time : 3 x 15 sec 6 min 3 x 30 sec 3 x 15 sec Resist or Assist : F/B incline step stool Not Performed : X HEP Given : Yes Yes Yes Comment : 05/20/23 05/13/23 05/13/23 05/13/23 [employer], Saroj - 06/03/2023 8:49 EST [employer], Saroj - 06/03/2023 8:49 EST [employer], Saroj - 06/03/2023 8:49 EST [employer], 06/03/2023 8:49 EST Exercise 18 Exercise 19 Exercise 20 Exercise 21 Exercise : Standing Hip flexor stretch Standing Hip ABD/EXT/gluteal Total Gym - squats, toe raises Leg Curl Repetition/Time : 3 x 15 sec 10x 2 x 15 Resist or Assist : rolling stool no band Level 7 Not Performed : X X HEP Given : Yes Yes Comment : 05/13/23 05/20/23, decreased reps due to pain 05/27/23 05/20/23 Saroj Dorantes PTA 06/03/2023 8:49 EST Saroj Dorantes PTA 06/03/2023 8:49 EST Saroj Dorantes PTA - 06/03/2023 8:49 EST Saroj Dorantes PTA 06/03/2023 8:49 EST Exercise 22 Exercise 23 Exercise 24 Exercise 25 Exercise : Knee Ext Leg Press Lateral Hip Check Gluteus Medius isometric Repetition/Time : Resist or Assist : Not Performed : HEP Given : Comment : Saroj Dorantes PTA - 06/03/2023 8:49 EST Saroj Dorantes PTA 06/03/2023 8:49 EST Saroj Dorantes PTA 06/03/2023 8:49 EST Saroj Dorantes PTA 06/03/2023 8:49 EST Exercise 26 Exercise 27 Exercise 28 Exercise : Milagro TKE Box squats Lunges Repetition/Time : 10x 10x Resist or Assist : 18 Canister Not Performed : HEP Given : Yes Yes Comment : 06/03/23 06/03/23 Jose E VIDAL, Saroj 06/03/2023 8:49 EST Saroj Dorantes PTA 06/03/2023 8:49 EST Saroj Dorantes PTA 06/03/2023 8:49 EST Neuromuscular Reeducation Neuromuscular Reeducation : Neuromuscular Reeducation Activity 1: Balance, Facilitation techniques, Positioning, Posture, Proprioceptive activities; see ther ex Performed Date: 05/20/2023 Saroj Dorantes PTA 06/03/2023 8:49 EST Neuromuscular Reeducation Activity 1 Activities : Balance, Facilitation techniques, Positioning, Posture, Proprioceptive activities Comments : see ther ex Saroj Dorantes PTA 06/03/2023 8:49 EST Manual Therapy Manual Therapy Activity 1 Activity 2 Type/Technique : Manual stretch, Manual traction Manual traction Region : Right hip Right hip Descriptor : R h (more content not included)...[facility] 07-15-2023 NotePT Outpatient Progress Note Entered On: 05/27/2023 11:34 EST Performed On: 05/27/2023 9:06 EST by Saroj Dorantes PTA Review/Treatments Provided Total Visit Count : 4 Visit Count Reviewed? 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 The pain would increase to 9/10 when trying to sleep. Suggested she decrease reps of those exs in an effort to minimizie R hip pain. R hip pain is currently 7/10. Therapeutic Exercise : Yes Neuromuscular Reeducation/ Balance : Yes Manual Therapy : Yes Saroj Dorantes PTA - 05/27/2023 9:06 EST Functional Activity Strazar PTChristine - 07/15/2023 14:08 EDT Therapeutic Exercise Custom Therapeutic Exercise Exercise 1 Exercise 2 Exercise 3 Exercise 4 Exercise : Pelvic tilt Pillow Squeeze w/ tilt Hip ER w/ band + tilt Quad/gluteal sets w/ tilt Repetition/Time : 5 x 5 sec 10 x 5 sec 10 x 5 sec 10 x 5 sec Resist or Assist : bolster red band bolster Not Performed : X X X HEP Given : Yes Yes Yes Yes Comment : 05/06/23 05/06/23 05/06/23 05/06/23 Saroj Dorantes PTA - 05/27/2023 9:06 EST Saroj Dorantes PTA - 05/27/2023 9:06 EST Saroj Dorantes PTA - 05/27/2023 9:06 EST Saroj Dorantes PTA - 05/27/2023 9:06 EST Exercise 5 Exercise 6 Exercise 7 Exercise 8 Exercise : Abdominal curl Bridging SLR - flexion w/ tilt SLR - abduction Repetition/Time : 10 x 5 sec 2 x 15 (inc 05/20) 10 x Resist or Assist : 0# 0# Not Performed : X HEP Given : Yes Yes Yes Comment : 05/13/23 05/13/23 - increase reps to 2 x 15 as pt is able 05/20/23, decreased reps due to pain 05/27/23 [employer], 05/27/2023 9:06 EST [employer], 05/27/2023 9:06 EST [employer], 05/27/2023 9:06 EST [employer], 05/27/2023 9:06 EST Exercise 9 Exercise 10 Exercise 11 Exercise 12 Exercise : SLR - abduction series SLR - extension Prone Quad stretch Supine hamstring stretch Repetition/Time : x 15 3 x 15 sec 3 x 15 sec Resist or Assist : 0# Not Performed : X HEP Given : Yes Comment : 05/27/23 05/27/23 05/06/23 [employer], 05/27/2023 9:06 EST [employer], 05/27/2023 9:06 EST [employer], 05/27/2023 9:06 EST [employer], 05/27/2023 9:06 EST Exercise 13 Exercise 15 Exercise 16 Exercise 17 Exercise : Seated Piriformis stretch Bike SH = 1 Calf stretch - incline Standing Hamstring stretch Repetition/Time : 3 x 15 sec 6 min 3 x 30 sec 3 x 15 sec Resist or Assist : F/B incline step stool Not Performed : X HEP Given : Yes Yes Yes Comment : 05/20/23 05/13/23 05/13/23 05/13/23 [employer], 05/27/2023 9:06 EST [employer], 05/27/2023 9:06 EST [employer], 05/27/2023 9:06 EST [employer], 05/27/2023 9:06 EST Exercise 18 Exercise 19 Exercise 20 Exercise 21 Exercise : Standing Hip flexor stretch Standing Hip ABD/EXT/gluteal Total Gym - squats, toe raises Leg Curl Repetition/Time : 3 x 15 sec 10x 2 x 15 Resist or Assist : rolling stool no band Level 7 Not Performed : HEP Given : Yes Yes Comment : 05/13/23 05/20/23, decreased reps due to pain 05/27/23 05/20/23 [employer], 05/27/2023 9:06 EST [employer], 05/27/2023 9:06 EST Jose E VIDAL 05/27/2023 9:06 EST Jose E VIDAL 05/27/2023 9:06 EST Exercise 22 Exercise 23 Exercise 24 Exercise 25 Exercise : Knee Ext Leg Press Lateral Hip Check Gluteus Medius isometric Repetition/Time : Resist or Assist : Not Performed : HEP Given : Comment : Jose E VIDAL 05/27/2023 9:06 EST Jose E [facility] 05/27/2023 9:06 EST Jose E VIDAL 05/27/2023 9:06 EST Jose E VIDAL 05/27/2023 9:06 EST Exercise 26 Exercise : Milagro TKE Repetition/Time : Resist or Assist : Not Performed : HEP Given : Comment : Jose E VIDAL 05/27/2023 9:06 EST Neuromuscular Reeducation Neuromuscular Reeducation : Neuromuscular Reeducation Activity 1: Balance, Facilitation techniques, Positioning, Posture, Proprioceptive activities; see ther ex Performed Date: 05/20/2023 [facility] 05/27/2023 9:06 EST Neuromuscular Reeducation Activity 1 Activities : Balance, Facilitation techniques, Positioning, Posture, Proprioceptive activities Comments : see ther ex Jose E VIDAL 05/27/2023 9:06 EST Manual Therapy Manual Therapy Activity 1 Activity 2 Type/Technique : Manual stretch, Manual traction Manual traction Region : Right hip Right hip Descriptor : R hip flexor stretch R hip gentle manual traction Pulling lateral and inferio-lateral Comment : 4 x 15 sec. Pt in L sidelying 3 x 10 sec traction. 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 04/22/2023: In November, she ran her first half marathon which then has caused her right groin painand pelvic floor issues. She referred herself to physical therapy, which she had 1 session due to insurance issues. The only address pelvic floor things at that time, and was told to follow-up with sports medicine to have her right groin pain evaluated. Since her marathon she has done significantlyless running, but still conditioning with yoga and other exercises. She continues to have pain, only intermittently takes ibuprofen due to GI side effects. She also has some left buttock pain that isnot as severe. She also admits to years of intermittent numbness in her left toes 2-3 times a week that is worse with physical activity. This has not changed. Denies any other trauma. 06/10/2023: She returns today for follow-up of her right groin pain. She states that physical therapy makes her right hip pain worse. She was unable to tolerate meloxicam due to GI side effect, intermittently takes ibuprofen only when pain is severe. Overall her pain has not improved. 06/26/2023: Corby was last here approximately 2-1/2 weeks ago and had an ultrasound-guided lateral hip injection which did not give her much relief. She denies any new injury or trauma to the hip. She has been compliant with her restrictions. She has failed conservative treatment and so we are going to order an MRI. Physical Examination: No exam was done today as this was a virtual visit with audio capabilities only. Assessment and Plan: 1. Trochanteric bursitis of left hip MR hip right wo IV contrast This has been recalcitrant to conservative treatment and so we are going to order an MRI. I will call her with the results and we will make treatment plan based on those results. In the meantime, shecan continue with her current medication regimen. All of her questions were answered and she agreeswith treatment plan. This was a virtual visit with audio capabilities only. I spent 7 minutes with her and greater than 50% of that time was spent discussing her diagnosis, prognosis, and treatment options. Please excuse any errors in grammar or translation related to this dictation. Voice recognition software was utilized to prepare this document. Terrance Kauffman M.D. 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 04/22/2023: In November, she ran her first half marathon which then has caused her right groin painand pelvic floor issues. She referred herself to physical therapy, which she had 1 session due to insurance issues. The only address pelvic floor things at that time, and was told to follow-up with sports medicine to have her right groin pain evaluated. Since her marathon she has done significantlyless running, but still conditioning with yoga and other exercises. She continues to have pain, only intermittently takes ibuprofen due to GI side effects. She also has some left buttock pain that isnot as severe. She also admits to years of intermittent numbness in her left toes 2-3 times a week that is worse with physical activity. This has not changed. Denies any other trauma. 06/10/2023: She returns today for follow-up of her right groin pain. She states that physical therapy makes her right hip pain worse. She was unable to tolerate meloxicam due to GI side effect, intermittently takes ibuprofen only when pain is severe. Overall her pain has not improved. Physical Examination: The Right hip and pelvis show no acute bony deformity. Log roll is positive. Straight leg raise test is negative. Ailyn is negative. Crossover is positive. Hip strength is strong as compared to the opposite hip. The opposite hip is otherwise nontender and stable. Gait is non-antalgic and tandem. L Inj/Asp: R hip joint on 06/10/2023 3:22 PM Indications: pain Details: 21 G needle, ultrasound-guided anterior approach Medications: 80 mg triamcinolone acetonide 40 mg/mL; 2 mL lidocaine 10 mg/mL (1 %) Outcome: tolerated well, no immediate complications Procedure, treatment alternatives, risks and benefits explained, specific risks discussed. Consent was given by the patient. Immediately prior to procedure a time out was called to verify the correctpatient, procedure, equipment, account support rep and site/side marked as required. Patient was prepped and draped in the usual sterile fashion. Assessment and Plan: 1. Femoral acetabular impingement Point of Care Ultrasound 2. Trochanteric bursitis of left hip She has failed conservative therapy with physical therapy and meloxicam, we agreed to trial a rightintra-articular hip corticosteroid injection today, which she tolerated well. This hopefully will provide her with diagnostic and therapeutic relief. Follow-up once pain returns, can consider MRI/referral for surgery. Uday Hernandez DO Sports Medicine Fellow [facility] Associated attestation - Terrance Kauffman MD - 06/12/2023 7:50 AM EDT Procedure Note Attestation Procedure performed by: Dr. Uday Hernandez D.O. I supervised the entire procedure. I saw and evaluated the patient. I personally obtained the horvath and critical portions of the historyand physical exam or was physically present for horvath and critical portions performed by the trainee.I reviewed the trainee's documentation and discussed the patient with the trainee. I agree with the trainee's medical decision making as documented on the trainee's note. I reviewed this patient with Dr. Uday Hernandez D.O. Terrance Kauffman M.D. Clinical Android Framework Developer, Division of Sports Medicine Primary Care Sports Medicine Department of Orthopedic Surgery [facility] documented in this [facility] Work Phone: 1(413) 583-994702-19-2024 NotePT Outpatient Progress Note Entered On: 05/20/2023 9:26 EST Performed On: 05/20/2023 8:51 EST by Christine Jang PT Review/Treatments Provided Total Visit Count : 3 Visit Count Reviewed? : Yes Contributor : Strazar PT, Christine Diagnosis : Reason for Visit: M25.859 femoral acetabular impingement Precautions/Special Notes : Initial eval 05/06/23 2x/week, 6-8 weeks (05/06/23 - 06/29/23) LEFs= 50/80 PT Diagnosis : R hip TATUM, arthritis Pes planus Attending Physician : Name: TERRANCE KAUFFMAN Subjective : Pt reports that she has not run lately as she is trying to rest her R hip so she can heal. Pt states that flexion SLR's are still challenging, but she was able to finally complete 15 reps. Pt states that she is getting a stationary bike this week. Therapeutic Exercise : Yes Neuromuscular Reeducation/ Balance : Yes Manual Therapy : Yes Modalities : Yes Strazar PT, Christine - 05/20/2023 8:51 EST Therapeutic Exercise Custom Therapeutic Exercise Exercise 1 Exercise 2 Exercise 3 Exercise 4 Exercise : Pelvic tilt Pillow Squeeze w/ tilt Hip ER w/ band + tilt Quad/gluteal sets w/ tilt Repetition/Time : 5 x 5 sec 10 x 5 sec 10 x 5 sec 10 x 5 sec Resist or Assist : bolster red band bolster HEP Given : Yes Yes Yes Yes Comment : 05/06/23 05/06/23 05/06/23 05/06/23 Strazar PT, Christine - 05/20/2023 8:51 EST Strazar PT, Christine - 05/20/2023 8:51 EST Strazar PT, Christine - 05/20/2023 8:51 EST Strazar PT, Christine - 05/20/2023 8:51 EST Exercise 5 Exercise 6 Exercise 7 Exercise 8 Exercise : Abdominal curl Bridging SLR - flexion w/ tilt SLR - abduction Repetition/Time : 10 x 5 sec 2 x 15 (inc 05/20) 15 x Resist or Assist : 0# 0# HEP Given : Yes Yes Yes Comment : 05/13/23 05/13/23 - increase reps to 2 x 15 as pt is able 05/20/23 Strazar PT, Christine - 05/20/2023 8:51 EST Strazar PT, Christine - 05/20/2023 8:51 EST Strazar PT, Christine - 05/20/2023 8:51 EST Strazar PT, Christine - 05/20/2023 13:27 EST Exercise 9 Exercise 10 Exercise 11 Exercise 12 Exercise : SLR - abduction series SLR - extension Prone Quad stretch Supine hamstring stretch Repetition/Time : 3 x 15 sec Resist or Assist : NV NV HEP Given : Yes Comment : 05/06/23 Strazar PT, Christine - 05/20/2023 8:51 EST Strazar PT, Christine - 05/20/2023 8:51 EST Strazar PT, Christine - 05/20/2023 8:51 EST Strazar PT, Christine - 05/20/2023 8:51 EST Exercise 13 Exercise 15 Exercise 16 Exercise 17 Exercise : Seated Piriformis stretch Bike SH = 1 Calf stretch - incline Standing Hamstring stretch Repetition/Time : 3 x 15 sec 6 min 3 x 30 sec 3 x 15 sec Resist or Assist : F/B incline step stool HEP Given : Yes Yes Yes Comment : 05/20/23 05/13/23 05/13/23 05/13/23 Strazar PT, Christine - 05/20/2023 8:51 EST Strazar PT, Christine - 05/20/2023 8:51 EST Strazar PT, Christine - 05/20/2023 8:51 EST Strazar PT, Christine - 05/20/2023 8:51 EST Exercise 18 Exercise 19 Exercise 20 Exercise 21 Exercise : Standing Hip flexor stretch Standing Hip ABD/EXT/gluteal Total Gym - squats, toe raises Leg Curl Repetition/Time : 3 x 15 sec 15 x 2 x 15 Resist or Assist : rolling stool yellow - NV Level 7 HEP Given : Yes Yes Comment : 05/13/23 05/20/23 05/20/23 Strazar PT, Christine - 05/20/2023 8:51 EST Strazar PT, Christine - 05/20/2023 8:51 EST Strazar PT, Christine - 05/20/2023 8:51 EST Strazar PT, Christine - 05/20/2023 8:51 EST Exercise 22 Exercise 23 Exercise 24 Exercise 25 Exercise : Knee Ext Leg Press Lateral Hip Check Gluteus Medius isometric Repetition/Time : Resist or Assist : HEP Given : Comment : Strazar PT, Christine - 05/20/2023 8:51 EST Christine Jang PT - 05/20/2023 8:51 EST Christine Jang PT - 05/20/2023 8:51 EST Christine Jang PT - 05/20/2023 8:51 EST Exercise 26 Exercise : Milagro TKE Repetition/Time : Resist or Assist : HEP Given : Comment : Christine Jang PT - 05/20/2023 8:51 EST Neuromuscular Reeducation Neuromuscular Reeducation : Neuromuscular Reeducation Activity 1: Balance, Facilitation techniques, Positioning, Posture, Proprioceptive activities; see ther ex Performed Date: 05/13/2023 Christine Jang PT - 05/20/2023 8:51 EST Neuromuscular Reeducation Activity 1 Activities : Balance, Facilitation techniques, Positioning, Posture, Proprioceptive activities Comments : see ther ex Christine Jang PT - 05/20/2023 8:51 EST Manual Therapy Manual Therapy Activity 1 Type/Technique : Manual stretch, Manual traction Region : Right hip Descriptor : R hip flexor stretch R hip gentle manual traction Comment : 4 x 15 sec. Pt in L sidelying 3 x 10 sec traction. Christine Jang PT - 05/20/2023 8:51 EST Education *Barriers To Learning : None evident *Teaching Method : Demonstration, Explanation, Printed materials Patient Education - PT Outpatient : Handouts given, Home exercise program - progression/modification, Home exercise program - reinforced compliance, Posture, Precautions reviewed, Self care, Symptom managem (more content not included)...[facility]02-12-2024 NotePT Outpatient Progress Note Entered On: 05/13/2023 9:20 EST Performed On: 05/13/2023 8:41 EST by Christine Jang PT Review/Treatments Provided Total Visit Count : 2 Visit Count Reviewed? 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 Pt states that her R hip pain is a 7 this morning. Pt reports doing her HEP 2x/day. Pt also taking Meloxican 1x/day, in the evening. Therapeutic Exercise : Yes Neuromuscular Reeducation/ Balance : Yes Manual Therapy : Yes Strazar PT, Christine - 05/13/2023 8:41 EST Therapeutic Exercise Custom Therapeutic Exercise Exercise 1 Exercise 2 Exercise 3 Exercise 4 Exercise : Pelvic tilt Pillow Squeeze w/ tilt Hip ER w/ band + tilt Quad/gluteal sets w/ tilt Repetition/Time : 5 x 5 sec 10 x 5 sec 10 x 5 sec 10 x 5 sec Resist or Assist : bolster red band bolster HEP Given : Yes Yes Yes Yes Comment : 05/06/23 05/06/23 05/06/23 05/06/23 Strazar PT, Christine - 05/13/2023 8:41 EST Strazar PT, Christine - 05/13/2023 8:41 EST Strazar PT, Christine - 05/13/2023 8:41 EST Strazar PT, Christine - 05/13/2023 8:41 EST Exercise 5 Exercise 6 Exercise 7 Exercise 8 Exercise : Abdominal curl Bridging SLR - flexion w/ tilt SLR - abduction Repetition/Time : 10 x 5 sec 10 x Resist or Assist : 0# NV HEP Given : Yes Yes Comment : 05/13/23 05/13/23 - increase reps to 2 x 15 as pt is able Strazar PT, Christine - 05/13/2023 8:41 EST Strazar PT, Christine - 05/13/2023 8:41 EST Strazar PT, Christine - 05/13/2023 8:41 EST Strazar PT, Christine - 05/13/2023 8:41 EST Exercise 9 Exercise 10 Exercise 11 Exercise 12 Exercise : SLR - abduction series SLR - extension Prone Quad stretch Supine hamstring stretch Repetition/Time : 3 x 15 sec Resist or Assist : HEP Given : Yes Comment : 05/06/23 Strazar PT, Christine - 05/13/2023 8:41 EST Strazar PT, Christine - 05/13/2023 8:41 EST Strazar PT, Christine - 05/13/2023 8:41 EST Strazar PT, Christine - 05/13/2023 8:41 EST Exercise 13 Exercise 15 Exercise 16 Exercise 17 Exercise : Seated Piriformis stretch Bike SH = 1 Calf stretch - incline Standing Hamstring stretch Repetition/Time : 6 min 3 x 30 sec 3 x 15 sec Resist or Assist : NV F/B incline step stool HEP Given : Yes Yes Comment : 05/13/23 05/13/23 05/13/23 Strazar PT, Christine - 05/13/2023 8:41 EST Strazar PT, Christine - 05/13/2023 8:41 EST Strazar PT, Christine - 05/13/2023 8:41 EST Strazar PT, Christine - 05/13/2023 8:41 EST Exercise 18 Exercise 19 Exercise 20 Exercise 21 Exercise : Standing Hip flexor stretch Standing Hip ABD/EXT/gluteal Total Gym - squats, toe raises Leg Curl Repetition/Time : 3 x 15 sec Resist or Assist : rolling stool NV HEP Given : Yes Yes Comment : 05/13/23 Strazar PT, Christine - 05/13/2023 8:41 EST Strazar PT, Christine - 05/13/2023 8:41 EST Strazar PT, Christine - 05/13/2023 8:41 EST Strazar PT, Christine - 05/13/2023 8:41 EST Exercise 22 Exercise 23 Exercise 24 Exercise 25 Exercise : Knee Ext Leg Press Lateral Hip Check Gluteus Medius isometric Repetition/Time : Resist or Assist : HEP Given : Comment : Strazar PT, Christine - 05/13/2023 8:41 EST Strazar PT, Christine - 05/13/2023 8:41 EST Strazar PT, Christine - 05/13/2023 8:41 EST Strazar PT, Christine - 05/13/2023 8:41 EST Neuromuscular Reeducation Neuromuscular Reeducation : Neuromuscular Reeducation No qualifying data available Strazar PT, Christine - 05/13/2023 8:41 EST Neuromuscular Reeducation Activity 1 Activities : Balance, Facilitation techniques, Positioning, Posture, Proprioceptive activities Comments : see ther ex Christine Jang PT - 05/13/2023 8:41 EST Manual Therapy Manual Therapy Activity 1 Type/Technique : Manual stretch, Manual traction Region : Right hip Descriptor : R hip flexor stretch R hip gentle manual traction Comment : 4 x 15 sec. Pt in L sidelying 3 x 10 sec traction. Christine Jang PT - 05/13/2023 8:41 EST Education *Barriers To Learning : None evident *Teaching Method : Demonstration, Explanation, Printed materials Patient Education - PT Outpatient : Handouts given, Home exercise program - progression/modification, Posture, Precautions reviewed, Self care, Symptom management hCristine Jang PT - 05/13/2023 8:41 EST Assessment PT Clinical Assessment Summary : Pt progressing as noted by increased core strength and stability, and ability to participate in a running event, although she continues to have significant R hip pain. Verbal and tactile cuing necessary to correct exercise technique, and to improve pelvic tilt technique. Weakness noted R hip flexor, with limitation noted in number of reps pt able to c (more content not included)...[facility]02-05-2024 NotePT Outpatient Evaluation Entered On: 05/06/2023 9:34 EST Performed On: 05/06/2023 8:56 EST by Christine Jang PT Reason for Treatment Total Visit Count : 1 Patient/Family Subjective Statement : Progressive incresae in R hip pain for 20 years, noted with increased running. Pt seen by orthopedist, had Xrays and diagnosed with TATUM and arthritis, and referred to PT. Pt enjoys running, and was hoping to train for a marathon. Pt has run a 1/2 marathon. Pt trains on land and on treadmill. Pt ran 2.5 miles last week. Visit Count Reviewed? : Yes Christine Jang PT - 05/06/2023 8:56 EST *Reason for Referral/Chief Complaint : R hip - TATUM, arthritis Pes planus Christine Jang PT - 05/06/2023 10:40 EST Diagnostic Testing : Xrays Christine Jang PT - 05/06/2023 8:56 EST Precautions/Special Notes : Initial eval 05/06/23 2x/week, 6-8 weeks (05/06/23 - 06/29/23) LEFs= 50/80 Christine Jang PT - 05/06/2023 10:40 EST Subjective Precautions : No Orders Qualified Diagnosis : Reason for Visit: M25.859 femoral acetabular impingement PT Diagnosis : R hip TATUM, arthritis Pes planus Pain Present : Yes actual or suspected pain Attending Physician : Name: TERRANCE KAUFFMAN Onset of Symptoms : Progressive onset R hip pain noted with increased running distances over the past year. PT Current Reported Functional Limitations : Difficulty with prolonged sitting, squatting, walking,sports/running, sleeping on right side. Chronicity of Condition PT : Chronic (greater than 3 months) Ability to Make Needs Known PT : Yes Affect/Behavior : Appropriate, Calm, Cooperative Orientation : Oriented x 4 Cultural/Spiritual Beliefs to Incorporate into Treatment Sessions : No Christine Jang PT - 05/06/2023 10:40 EST Past Medical History, Hospitalizations, Surgeries History of Problems, Comorbidities Rehab : GERD History of Comorbidities,Personal Factor : 1-2 personal factors and/or comorbidities Rehab Problems and Meds Reviewed : Patient's problem and medication lists were reviewed Rehab Outpt Past Medical History : No Significant Medical History, Other: GERD Christine Jang PT - 05/06/2023 10:40 EST Problem List (As Of: 05/06/2023 11:20:18 EST) Problems(Active) Acid reflux (SNOMED CT :952882497 ) Name of Problem: Acid reflux ; Recorder: COLIN STEIN MD; Confirmation: Confirmed ; Classification: Medical ; Code: [id number] ; Contributor System: ZENTICKET ; Last Updated: 07/19/2022 13:30 EDT ; Life Cycle Date: 07/19/2022 ; Life Cycle Status: Active ; Responsible Provider: COLIN HARDY MD; Vocabulary: SNOMED CT Esophageal pain (SNOMED CT :154329940 ) Name of Problem: Esophageal pain ; Recorder: COLIN STEIN MD; Confirmation: Confirmed ; Classification: Medical ; Code: [id number] ; Contributor System: ZENTICKET ; Last Updated:07/19/2022 13:30 EDT ; Life Cycle Date: 07/19/2022 ; Life Cycle Status: Active ; Responsible Provider: COLIN STEIN MD; Vocabulary: SNOMED CT Allergies & Medications (As Of: 05/06/2023 11:20:18 EST) Allergies (Active) No Known Medication Allergies Estimated Onset Date: Unspecified ; Created By: Patricia Morris MA;Reaction Status: Active ; Category: Drug ; Substance: No Known Medication Allergies ; Type: Allergy; Updated By: Patricia Morris MA; Reviewed Date: 08/13/2022 15:19 EDT Medication List (As Of: 05/06/2023 11:20:18 EST) Home Meds ethinyl estradiol-etonogestrel : ethinyl estradiol-etonogestrel ; Status: Documented ; Ordered As Mnemonic: ethinyl estradiol-etonogestrel 0.015 mg-0.12 mg/24 hours vaginal ring ; Simple Display Line: 3 EA, 0 Refill(s), 0 Refill(s) ; Catalog Code: ethinyl estradiol-etonogestrel ; Order Dt/Tm: 11/28/2022 09:19:42 EDT ; Comment: Responsible Provider: Angel Penny fluticafelipa nasal : fluticasone nasal ; Status: Documented ; Ordered As Mnemonic: Flonase 50 mcg/inh nasal spray ; Simple Display Line: 1 sprays, Nasal, BID, 0 Refill(s) ; Catalog Code: fluticasone nasal ; Order Dt/Tm: 08/19/2017 16:15:21 EDT Pain Assessment Pain Location : Hip Laterality : Right Quality : Aching, Radiating, Throbbing Time Pattern : Chronic Onset : Gradual Pain Negatively Impacts : Daily life, Work, Other: running Question Ability to Self Report Pain : No Self Report Pain : Numeric rating scale Numeric Pain Scale : 9 Numeric Pain Score : 9 Christine Jang PT - 05/06/2023 10:40 EST Home Environment Living Environment : Home Environment No qualifying data available *Lives With : Spouse Patient's Responsibilities Rehab : Community mobility, Transportation Consultant, 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 half marathon runner who presents today for right hip pain. In November, she ran her first half marathon which then has caused her right groin pain and pelvicfloor issues. She referred herself to physical therapy, which she had 1 session due to insurance issues. The only address pelvic floor things at that time, and was told to follow-up with sports medicine to have her right groin pain evaluated. Since her marathon she has done significantly less running, but still conditioning with yoga and other exercises. She continues to have pain, only intermittently takes ibuprofen due to GI side effects. She also has some left buttock pain that is not as severe. She also admits to years of intermittent numbness in her left toes 2-3 times a week that is worse with physical activity. This has not changed. Denies any other trauma. Physical Examination: The Right hip and pelvis show no acute bony deformity. Log roll is positive. Straight leg raise test is negative. Ailyn is negative. Crossover is positive. Hip strength is strong as compared to the opposite hip. The opposite hip is otherwise nontender and stable. Gait is non-antalgic and tandem. Imaging: Radiographs of the right hip were reviewed and personally interpreted, which revealed cam deformitywith subchondral sclerosis of the weightbearing aspect of the acetabulum. The studies were reviewed with Dr. Kauffman personally in the office today. Assessment and Plan: 1. Femoral acetabular impingement Referral to Physical Therapy meloxicam (Mobic) 15 mg tablet 2. Right hip pain XR hip right with pelvis when performed 2 or 3 views Considering she has right groin pain, positive logroll/T dear, cam deformity and subchondral sclerosis of the weightbearing portion of the acetabulum, she is suffering from TATUM. Refer to physical therapy for this to increase hip girdle and hip flexor strength. In the meantime, meloxicam 15 mg dailywas sent to her pharmacy for pain control. If this pain does not improve in the next 4 to 6 weeks, return to office. Uday Hernandez DO Sports Medicine Fellow [facility] Associated attestation - Terrance Kauffman MD - 04/25/2023 10:16 AM EST I saw and evaluated the patient. I personally obtained the horvath and critical portions of the historyand physical exam or was physically present for horvath and critical portions performed by the trainee.I reviewed the trainee's documentation and discussed the patient with the trainee. I agree with the trainee's medical decision making as documented on the trainee's note. I reviewed this patient with Dr. Uday Hernandez D.O. Terrance Kauffman M.D. 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 Pt referred to PT by her Showroom Consultant. Visit Count Reviewed? : Yes Christine Jang PT - 01/14/2023 15:42 EDT *Reason for Referral/Chief Complaint : Dysparunia R hip pain Christine Jang PT - 01/14/2023 21:34 EDT Diagnostic Testing : Pelvic Ultrasound Precautions/Special Notes : Initial eval 01/14/23 1x/week, 6 - 8 weeks (01/14/23 - 03/08/23) Christine Jang PT - 01/14/2023 15:42 EDT Subjective Precautions : No Orders Qualified Diagnosis : Reason for Visit: N94.10 = Unspecified Dyspareunia; R10 =pelvic pain Pain Present : Yes actual or suspected pain Attending Physician : Name: SHARYN CAT MD, FACOG Pain/Functional Deficit Resulted From : pelvic pain with running, and dysparunia Onset of Symptoms : 4-6 months ago PT Current Reported Functional Limitations : Decreased ability to run, and have intercourse Chronicity of Condition PT : Chronic (greater than 3 months) Ability to Make Needs Known PT : Yes Affect/Behavior : Appropriate Orientation : Oriented x 4 Cultural/Spiritual Beliefs to Incorporate into Treatment Sessions : No Christine Jang PT - 01/14/2023 15:42 EDT Past Medical History, Hospitalizations, Surgeries History of Comorbidities,Personal Factor : No personal factors and/or comorbidities Rehab Problems and Meds Reviewed : Patient's problem and medication lists were reviewed Rehab Outpt Past Medical History : No Significant Medical History Christine Jang PT - 01/14/2023 15:42 EDT Problem List (As Of: 01/14/2023 17:08:39 EDT) Problems(Active) Acid reflux (SNOMED CT :883874051 ) Name of Problem: Acid reflux ; Recorder: COLIN STEIN MD; Confirmation: Confirmed ; Classification: Medical ; Code: [id number] ; Contributor System: ZENTICKET ; Last Updated: 07/19/2022 13:30 EDT ; Life Cycle Date: 07/19/2022 ; Life Cycle Status: Active ; Responsible Provider: COLIN HARDY MD; Vocabulary: SNOMED CT Esophageal pain (SNOMED CT :210389871 ) Name of Problem: Esophageal pain ; Recorder: COLIN STEIN MD; Confirmation: Confirmed ; Classification: Medical ; Code: [id number] ; Contributor System: ZENTICKET ; Last Updated:07/19/2022 13:30 EDT ; Life Cycle Date: 07/19/2022 ; Life Cycle Status: Active ; Responsible Provider: COLIN STEIN MD; Vocabulary: SNOMED CT Allergies & Medications (As Of: 01/14/2023 17:08:39 EDT) Allergies (Active) No Known Medication Allergies Estimated Onset Date: Unspecified ; Created By: Patricia Morris MA;Reaction Status: Active ; Category: Drug ; Substance: No Known Medication Allergies ; Type: Allergy; Updated By: Patricia Morris MA; Reviewed Date: 08/13/2022 15:19 EDT Medication List (As Of: 01/14/2023 17:08:39 EDT) Home Meds ethinyl estradiol-etonogestrel : ethinyl estradiol-etonogestrel ; Status: Documented ; Ordered As Mnemonic: ethinyl estradiol-etonogestrel 0.015 mg-0.12 mg/24 hours vaginal ring ; Simple Display Line: 3 EA, 0 Refill(s), 0 Refill(s) ; Catalog Code: ethinyl estradiol-etonogestrel ; Order Dt/Tm: 11/28/2022 09:19:42 EDT ; Comment: Responsible Provider: Angel Penny fluabida nasal : fluticasone nasal ; Status: Documented ; Ordered As Mnemonic: Flonase 50 mcg/inh nasal spray ; Simple Display Line: 1 sprays, Nasal, BID, 0 Refill(s) ; Catalog Code: fluticasone nasal ; Order Dt/Tm: 08/19/2017 16:15:21 EDT Pain Assessment Pain Location : Pelvic Laterality : Bilateral Quality : Aching Time Pattern : Acute Onset : Gradual Pain Negatively Impacts : Other: intercourse, running Question Ability to Self Report Pain : No Self Report Pain : Numeric rating scale Numeric Pain Scale : 10 = Worst possible pain Numeric Pain Score : 10 Christine Jang PT - 01/14/2023 15:42 EDT Home Environment Living Environment : Home Environment No qualifying data available *Lives With : Spouse Lives In : Multilevel home Patient's Responsibilities Rehab : Community mobility, Transportation Consultant, Employed, Home management, Laundry, Leisure/Play/Hobbies, Meal preparation, Personal ADL, Shopping, Social participation, Volunteer, Other: running 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 Hobbies/Recreation : Distance running - 1/2 marathon Christine Jang PT - 01/14/2023 15:42 EDT Home Environment II Living Environment : Home Environment No qualifying data available Christine Jang PT 01/14/2023 15:42 EDT Prior Functional Status Grid ADL : Independent Mobility : Independent Instrumental ADL : Independent Cognitive-Communication Skills : Independent Christine Jang PT 01/14/2023 15:42 EDT Posture/Deviations (more content not included)...[facility] 07-31-2022 NotePatient Education Material Gastrointestinal Hiatal Hernia: Care Instructions Your Care Instructions A hiatal hernia occurs when part of the stomach bulges into the chest cavity. A hiatal hernia may allow stomach acid and juices to back up into the esophagus (acid reflux). Thiscan cause a feeling of burning, warmth, heat, or pain behind the breastbone. This feeling may oftenoccur after you eat, soon after you lie down, or when you bend forward, and it may come and go. Youalso may have a sour taste in your mouth. These symptoms are commonly known as heartburn or reflux. But not all hiatal hernias cause symptoms. Follow-up care is a horvath part of your treatment and safety. Be sure to make and go to all appointments, and call your doctor if you are having problems. It's also a good idea to know your test resultsand keep a list of the medicines you take. How can you care for yourself at home? ? Take your medicines exactly as prescribed. Call your doctor if you think you are having a problemwith your medicine. ? Do not take aspirin or other nonsteroidal anti-inflammatory drugs (NSAIDs), such as ibuprofen (Advil, Motrin) or naproxen (Aleve), unless your doctor says it is okay. Ask your doctor what you can take for pain. ? Your doctor may recommend lzru-nwo-faqhrbx medicine. For mild or occasional indigestion, antacidssuch as Tums, Gaviscon, Maalox, or Mylanta may help. Your doctor also may recommend grly-wyw-urhhhnv acid reducers, such as famotidine (Pepcid AC), cimetidine (Tagamet HB), or omeprazole (Prilosec). Read and follow all instructions on the label. If you use these medicines often, talk with your doctor. ? Change your eating habits. ? It's best to eat several small meals instead of two or three large meals. ? After you eat, wait 2 to 3 hours before you lie down. Late-night snacks aren't a good idea. ? Avoid foods that make your symptoms worse. These may include chocolate, mint, alcohol, pepper, spicy foods, high-fat foods, or drinks with caffeine in them, such as tea, coffee, wilton, or energy drinks. If your symptoms are worse after you eat a certain food, you may want to stop eating it to seeif your symptoms get better. ? Do not smoke or chew tobacco. ? If you get heartburn at night, raise the head of your bed 6 to 8 inches by putting the frame on blocks or placing a foam wedge under the head of your mattress. (Adding extra pillows does not work.) ? Do not wear tight clothing around your middle. ? Lose weight if you need to. Losing just 5 to 10 pounds can help. When should you call for help? Call your doctor now or seek immediate medical care if: ? You have new or worse belly pain. ? You are vomiting. Watch closely for changes in your health, and be sure to contact your doctor if: ? You have new or worse symptoms of indigestion. ? You have trouble or pain swallowing. ? You are losing weight. ? You do not get better as expected. Where can you learn more? Go to https://www.[employer].net/patientEd Enter T074 in the search box to learn more about Hiatal Hernia: Care Instructions. Current as of: December 07, 2020 Content Version: 13.3 ? [employer]. Care instructions adapted under license by your healthcare professional. If you have questions about a medical condition or this instruction, always ask your healthcare professional. [employer] disclaims any warranty or liability for your use of this information. Gastritis: Care Instructions Your Care Instructions Gastritis is a sore and upset stomach. It happens when something irritates the stomach lining. Manythings can cause it. These include an infection such as the flu or something you ate or drank. Medicines or a sore on the lining of the stomach (ulcer) also can cause it. Your belly may bloat and ache. You may belch, vomit, and feel sick to your stomach. You should be able to relieve the problem by taking medicine. And it may help to change your diet. If gastritis lasts, your doctor may prescribe medicine. Follow-up care is a horvath part of your treatment and safety. Be sure to make and go to all appointments, and call your doctor if you are having problems. It's also a good idea to know your test resultsand keep a list of the medicines you take. How can you care for yourself at home? ? If your doctor prescribed antibiotics, take them as directed. Do not stop taking them just because you feel better. You need to take the full course of antibiotics. ? Be safe with medicines. If your doctor prescribed medicine to decrease stomach acid, take it as directed. Call your doctor if you think you are having a problem with your medicine. ? Do not take any other medicine, including mtpu-tfy-lhntkvw pain relievers, without talking to your doctor first. ? If your doctor recommends iwks-ntg-tntwkst medicine to reduce stomach acid, such as Pepcid AC (famotidine), Prilosec (omeprazole), or Tagamet HB (cimetidine) follow the directions on the la (more content not included)... [facility]05-02-2023 NoteNursing Discharge Summary Entered On: 07/31/2022 12:07 EDT Performed On: 07/31/2022 12:07 EDT by Julia Guerrero RN, DC Information Discharged to : Home Mode of Discharge : Ambulatory Discharge Transportation : Private vehicle Reg VTE Warfarin at Discharge : No Julia Guerrero RN - 07/31/2022 12:07 EDT Education Instructions given to : Patient TeachBack Methodology : TeachBack, Explanation, Printed Material Barriers to Learning : None evident Julia Guerrero RN - 07/31/2022 12:07 EDT Post-Hospital Education Adult Grid Disease Process : Verbalizes understanding Importance of Follow-Up Visits : Verbalizes understanding Plan of Care : Verbalizes understanding Postoperative Instructions : Verbalizes understanding When to Call Health Care Provider : Verbalizes understanding Julia Guerrero RN - 07/31/2022 12:07 EDT Safety Education Adult Grid Safety, Fall : Verbalizes understanding Julia Guerrero RN - 07/31/2022 12:[facility]bleChief complaint+Reason for visit Narrative* Chief Complaint Admit Date PNOB Vitals & Education December 08, 2 025 9:02am [employer] Work Phone: Evaluation note* Diagnosis Femoral acetabular impingement- Primary Right hip pain Pain in joint, pelvic region and thigh Right hip pain Pain in joint, pelvic region and thigh documented in this encounter [facility] Work Phone: [phone] note* Diagnosis Femoral acetabular impingement- Primary Trochanteric bursitis of left hip documented in this encounter [facility] Work Phone: [phone] note* Diagnosis Trochanteric bursitis of left hip documented in this encounter [facility] Work Phone: [phone] note* Diagnosis Trochanteric bursitis of left hip documented in this encounter [facility] Work Phone: [phone] note* Diagnosis Trochanteric bursitis of left hip documented in this encounter [facility] Work Phone: [phone] note* Diagnosis Tendinopathy of right gluteus medius documented in this encounter [facility] Work Phone: [phone] note* Diagnosis Right elbow pain Pain in joint, upper arm Right elbow pain Pain in joint, upper arm documented in this encounter [facility] Work Phone: [phone] note* Diagnosis Right elbow pain Pain in joint, upper arm Right tennis elbow- Primary Right elbow pain Pain in joint, upper arm documented in this encounter [facility] Work Phone: [phone] note* Diagnosis Right tennis elbow- Primary documented in this encounter [facility] Work Phone: [phone] note* Diagnosis Acute right-sided low back pain with right-sided sciatica- Primary Acute right-sided low back pain with right-sided sciatica documented in this encounter [facility] Work Phone: Evaluation noteNo assessment information available [facility] Work Phone: Reason for referral (narrative)* Consultation (Routine) - Pending Review Specialty Diagnoses / Procedures Referred By Carlos muniz Referred To Contact Physical Therapy Diagnoses Femoral [place] [id number] [address] [place] [address] Referral ID Status Reason Start Date Expiration Date Visits Requested Visits Authorized [id number] Pending Review Specialty Services Required 04/22/2023 04/21/2024 1 1 * Imaging (Routine) - Authorized Specialty Diagnoses / Procedures Referred By Contac t Referred To Contact Radiology Diagnoses Right hip pain Procedures XR hip right with pelvis when performed 2 or [place] [id number] [address] [place] [address] Referral ID Status Reason Start Date Expiration Date Visits Requested Visits Authorized [id number] Authorized Perform Procedure 04/22/2023 04/21/2024 1 1 [facility] Work Phone: Reason for referral (narrative)No reason for [facility]: Reason for visit Narrative* Imaging (Routine) - Authorized Specialty Diagnoses / Procedures Referred By Contac t Referred To Contact Radiology Diagnoses Right elbow pain Procedures XR elbow right 3+ [place] [address] [address] Department [place] [address] Phone: tel: fax: Referral ID Status Reason Start Date Expiration Date Visits Requested Visits Authorized [id number] Authorized Perform Procedure 4 03/17/2025 1 1 [facility] Work Phone: Summary Purpose Family History No Family History Records Found Relationship Condition Age at Onset Recorded Date/T checo mother Hypertension Unknown father Hypertension Unknown Relationship Condition Age at Onset Recorded Date/T checo mother Hypertension Unknown father Hypertension Unknown sister Diabetes mellitus Unknown Advance Directives No Advanced Directives Records FoundNo Advanced Directives Records FoundNo Advanced Directives Records FoundNo Advanced Directives Records FoundNo Advanced Directives Records FoundNo Advanced Directives Records FoundNo Advanced Directives Records FoundNo Advanced Directives Records Found Reason for Referral Specialty Diagnoses / Procedures Referred By Contac t Referred To Contact Radiology Diagnoses Trochanteric bursitis of left hip Procedures MR hip right [place] [address] [address] Department of Orthopedics [place] [id number] Referral ID Status Reason Start Date Expiration Date Visits Requested Visits Authorized [id number] Authorized Perform Procedure 06/26/2023 06/25/2024 1 1 Chief Complaint and Reason for Visit Chief Complaint Admit Date 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, 2024 8:3 0am INFERTILITY June 23, 2024 4:2 1pm Reason for Visit Admit Date Encounter for infertility June 18 8:30am Encounter for routine gynecological exam ination June 18, 2024 8:30am Additional Source Comments INFORMATION SOURCE (unrecogn ized section and content) DATE CREATED AUTHOR 09/19/2017 [facility] DATE CREATED AUTHOR AUTHOR'S ORGANIZ ATION 08/22/2020 [facility] DATE CREATED AUTHOR AUTHOR'S ORGANIZ ATION 06/12/2022 [facility] DATE CREATED AUTHOR AUTHOR'S ORGANIZ ATION 09/17/2022 [facility] DATE CREATED AUTHOR AUTHOR'S ORGANIZ ATION 07/16/2023 [facility] DATE CREATED AUTHOR AUTHOR'S ORGANIZ ATION 03/23/2024 [facility] DATE CREATED AUTHOR AUTHOR'S ORGANIZ ATION 10/30/2024 [facility] DATE CREATED AUTHOR AUTHOR'S ORGANIZ ATION 12/23/2024 [facility] Reason for Visit (unrecogniz ed section and content) Reason Comments Pain Reason Comments Pain Reason Comments Pain Specialty Diagnoses / Procedures Referred By Contac t Referred To Contact Radiology Diagnoses Trochanteric bursitis of left hip Procedures MR hip right [place] [address] [address] Department [place] [address] Referral ID Status Reason Start Date Expiration Date Visits Requested Visits Authorized [id number] Authorized Perform Procedure 06/26/2023 06/25/2024 1 1 Reason Comments Pain Injections CSI Reason Comments Pain Pain for 1 month, no known injury Reason Comments Pain FUV R LATER EPICONDY LITIS 1 MONTH FU POST VOLTAREN + PT CORTISONE VS PRP Follow-up FUV R LATER EPICONDY LITIS 1 MONTH FU POST VOLTAREN + PT CORTISONE VS PRP Reason Comments Back Pain Care Teams (unrecognized sec tion and content) 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 Start Date End Date Angel Penny PA [address] [place] [phone] PCP - General Internal Medicine 03/23/24 Team Status: Active Member Role Status Dates BRYAN Portillo Primary Care Provider Active Team Status: Inactive Member Role Status Dates ALEA Willingham Attending Provider Active Start: June 18, 2024 End: June 18, 2024 Team Status: Inactive Member Role Status Dates BRYAN Portillo Primary Care Provider Active Start: June 18, 2024 End: June 18, 2024 ALEA Willingham Attending Provider Active Start: June 18, 2024 End: June 18, 2024 ALEA Willingham Referring Provider Active Start: June 18, 2024 End: June 18, 2024 Team Status: Active Member Role Status Dates BRYAN Portillo Primary Care Provider Active Start: June 23, 2024 ALEA Willingham Attending Provider Active Start: June 23, 2024 ALEA Willingham Referring Provider Active Start: June 23, 2024 Team Status: Inactive Member Role Status Dates BRYAN Portillo Primary Care Provider Active Start: June 23, 2024 End: June 23, 2024 ALEA Willingham Attending Provider Active Start: June 23, 2024 End: June 23, 2024 ALEA Willingham Referring Provider Active Start: June 23, 2024 End: June 23, 2024 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 Brandie Watt MD Attending Provider Active Start: December 08, 2024 End: December 08, 2024 Goals (unrecognized section and content) Goals may be documented in a n alternate sectionGoals may be documented in an alternate sectionGoals may be documented in an alternate section FOR RECORDS PERTAINING TO PATIENTS WHO ARE OR HAVE BEEN ENROLLED IN A CHEMICAL DEPENDENCY/SUBSTANCEABUSE PROGRAM, SOME INFORMATION MAY BE OMITTED. This clinical summary was aggregated from multiple sources. Caution should be exercised in using it in the provision of clinical care. This summary normalizes information from multiple sources, and as a consequence, information in this document may materially change the coding, format and clinical context of patient data. In addition, data may be omitted in some cases. CLINICAL DECISIONS SHOULD BE BASED ON THE PRIMARY CLINICAL RECORDS. [employer] provides no warranty or guarantee of the accuracy or completeness of information in this document.
--- OUTSIDE RECORDS SUMMARY | 2024-12-25 09:26 | XMS RPT_ITS | CCD ---
Author Organization [facility] Care Team Providers Care Director Of Physical Therapy Name Role Phone ANGEL PENNY Unavailable Unavailable [...] Unavailable COLIN STEIN MD Attending Unavaila COLIN Wilkins MD Attending Unavaila ble GALOUSE, ANGEL Mandujano Primary Care Unavailable GALEHOUSE, ANGEL Mandujano Primary Care Unavailable COLIN STEIN MD Attending Unavaila ble GALLAM, ANGEL Mandujano Primary Care Unavailable TERRANCE KAUFFMAN Referring Unavailable TERRANCE KAUFFMAN Attending Unavailable GALEHOUSE, ANGEL Mandujano Primary Care Unavailable SHARYN CAT MD Attending Unavailable GALEHOUSE [facility]~[phone] Referring Unavailable ANGEL LEE~[phone], ANGEL ACEVEDO Attend ing Unavailable ANGEL LEE~[phone], ANGEL ACEVEDO Admitt ing Unavailable AA NO PCP, NO PCP Primary Care Unavailable [facility] Angel ADAMS Primary Care Provide r Patsy Candelario Attending Provider Angel Campbell Primary Care Provider [phone] Patsy Candelario Referring Provider Angel Penny PA-C Primary Care Provider [facility] Primary Care Provider [place] PA, Angel [...] 18, 2024 12:00am 21 day ethinyl estradiol 0.800800 mg/hr / etonogestrel 0.005 mg/hr vaginal system [...] Test Name Value Interpretation Reference Range 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 Normal [facility] Office Visit Reporton 2024 Office Visit Report [facility] [address] [place] [address] OFFICE VISIT Date of Service: 12/08/24 MR#: [id number] Acct: [id number] Patient: CORBY HENDRICKSON Rep #: [id number] : 1985 Provider: Dr. Brandie wakefield MD Age/Sex: 39/F Location: [facility] Status: Signed Intake Vital Signs 06/18/24 08:44 [...] cervix 12/12/24 0139 Date [facility] Watt [facility] Signature: Date (if applicable) CC: Normal [facility] CBC (INCLUDES DIFF/PLT)on Basophils (Bld) [#/Vol] 0.062 10*3/uL Normal 0-200 [facility] Comment on above: Performed By: #### 7 600, 6399, 53789 #### [facility] of [place] [address] Dredge Engineer: Jeffery Ibarra MD Basophils/100 WBC (Bld) 1.1 % Normal [facility] Comment on above: Performed By: #### 7 600, 6399, 37716 #### [facility] [place] [address] Dredge Engineer: Jeffery Ibarra MD Eosinophils (Bld) [#/Vol] 0.101 10*3/uL Normal 15-500 [facility] Comment on above: Performed By: #### 7 600, 6399, 79008 #### [facility] of [place] [address] Dredge Engineer: Jeffery Ibarra MD Eosinophils/100 WBC (Bld) 1.8 % Normal [facility] Comment on above: Performed By: #### 7 600, 6399, 96740 #### [facility] of [place] [address] Dredge Engineer: eJffery Ibarra MD Erythrocyte distribution width (RBC) [Ratio] 12.5 % Normal 11.0-15.0 [facility] Comment on above: Performed By: #### 7 600, 6399, 52481 #### [facility] of [place] [address] Dredge Engineer: Jeffery Ibarra MD Hematocrit (Bld) [Volume fraction] 42.5 % Normal 35.0-45.0 [facility] Comment on above: Performed By: #### 7 600, 6399, 06722 #### [facility] of [address], [address] [place] [address] Dredge Engineer: Jeffery Ibarra MD Hemoglobin (Bld) [Mass/Vol] 13.9 g/dL Normal 11.7-15.5 [facility] Comment on above: Performed By: #### 7 600, 6399, 82483 #### [facility] of [address], [address] [place] [address] Dredge Engineer: Jeffery Ibarra MD Lymphocytes (Bld) [#/Vol] 1.215 10*3/uL Normal 850-3900 [facility] Comment on above: Performed By: #### 7 600, 6399, 62478 #### [facility] of [address], [address] [place] [address] Dredge Engineer: Jeffery Ibarra MD Lymphocytes/100 WBC (Bld) 21.7 % Normal [facility] Comment on above: Performed By: #### 7 600, 6399, 36152 #### [facility] of [address], [address] [place] [address] Dredge Engineer: Jeffery Ibarra MD MCH (RBC) [Entitic mass] 32.5 pg Normal 27.0-33.0 [facility] Comment on above: Performed By: #### 7 600, 6399, 72123 #### [facility] of [address], [address] [place] [address] Dredge Engineer: Jeffery Ibarra MD MCHC (RBC) [Mass/Vol] 32.7 g/dL Normal 32.0-36.[address] [facility] Comment on above: Result Comment: For adults, a slight decrease in the calculated MCHC value (in the range of 30 to 32 g/dL) is most likely not clinically significant; however, it should be interpreted with caution in correlation with other red cell parameters and the patient's clinical condition. Performed By: #### 7 600, 6399, 36219 #### [facility] of [address], [address] [place] [address] Dredge Engineer: Jeffery Ibarra MD MCV (RBC) [Entitic vol] 99.3 fL Normal 80.0-100.0 [facility] Comment on above: Performed By: #### 7 600, 6399, 25799 #### [facility] of [place] [address] Dredge Engineer: Jeffery Ibarra MD Monocytes (Bld) [#/Vol] 0.353 10*3/uL Normal 200-950 [facility] Comment on above: Performed By: #### 7 600, 6399, 21739 #### [facility] [place] [address] Dredge Engineer: Jeffery Ibarra MD Monocytes/100 WBC (Bld) 6.3 % Normal [facility] Comment on above: Performed By: #### 7 600, 6399, 44500 #### [facility] [place] [address] Dredge Engineer: Jeffery Ibarra MD Neutrophils (Bld) [#/Vol] 3.87 10*3/uL Normal 5062-9820 [facility] Comment on above: Performed By: #### 7 600, 6399, 22031 #### [facility] [place] [address] Dredge Engineer: Jeffery Ibarra MD Neutrophils/100 WBC (Bld) 69.1 % Normal [facility] Comment on above: Performed By: #### 7 600, 6399, 26342 #### [facility] of [place] [address] Dredge Engineer: Jeffery Ibarra MD Platelet mean volume (Bld) [Entitic vol] 10.2 fL Normal 7.5-12.5 [facility] Comment on above: Performed By: #### 7 600, 6399, 92092 #### [facility] of [place] [address] Dredge Engineer: Jeffery Ibarra MD Platelets (Bld) [#/Vol] 223 10*3/uL Normal 140-400 [facility] Comment on above: Performed By: #### 7 600, 6399, 69993 #### [facility] [place] [address] Dredge Engineer: Jeffery Ibarra MD RBC (Bld) [#/Vol] 4.28 10*6/uL Normal 3.80-5.10 [facility] Comment on above: Performed By: #### 7 600, 6399, 15174 #### [facility] of [place] [address] Dredge Engineer: Jeffery Ibarra MD WBC (Bld) [#/Vol] 5.6 10*3/uL Normal 3.8-10.8 [facility] Comment on above: Performed By: #### 7 600, 6399, 31535 #### [facility] of [place] [address] Dredge Engineer: Jeffery Ibarra MD COMPREHENSIVE METABOLIC PANE [facility] 10-28-2024 Albumin [Mass/Vol] 4.4 g/dL Normal 3.6-5.1 [facility] Comment on above: Performed By: #### 7 600, 6399, 29692 #### [facility] of [place] [address] Dredge Engineer: Jeffery Ibarra MD Albumin/Globulin [Mass ratio] 2.2 {ratio} Normal 1.0-2.5 [facility] Comment on above: Performed By: #### 7 600, 6399, 87114 #### [facility] of [place] [address] Dredge Engineer: Jeffery Ibarra MD ALP [Catalytic activity/Vol] 38 U/L Normal 31-125 [facility] Comment on above: Performed By: #### 7 600, 6399, 97663 #### [facility] [place] [address] Dredge Engineer: Jeffery Ibarra MD ALT [Catalytic activity/Vol] 9 U/L Normal 6-29 [facility] Comment on above: Performed By: #### 7 600, 6399, 62619 #### [facility] of [address], [address] [place] [address] Dredge Engineer: Jeffery Ibarra MD AST [Catalytic activity/Vol] 15 U/L Normal 10-30 [facility] Comment on above: Performed By: #### 7 600, 6399, 94472 #### [facility] of [address], [address] [place] [address] Dredge Engineer: Jeffery Ibarra MD Bilirubin [Mass/Vol] 1.4 mg/dL High 0.2-1.2 [facility] Comment on above: Performed By: #### 7 600, 6399, 64538 #### [facility] of [address], [address] [place] [address] Dredge Engineer: Jeffery Ibarra MD BUN/CREATININE RATIO SEE NOTE: Normal 6-22 [facility] Comment on above: Result Comment: Not Reported: BUN and Creatinine are within reference range. Performed By: #### 7 600, 6399, 71860 #### [facility] of [address], [address] [place] [address] Dredge Engineer: Jeffery Ibarra MD Calcium [Mass/Vol] 9.1 mg/dL Normal 8.6-10.2 [facility] Comment on above: Performed By: #### 7 600, 6399, 12284 #### [facility] of [address], [address] [place] [address] Dredge Engineer: Jeffery Ibarra MD Chloride [Moles/Vol] 106 mmol/L Normal 98-110 [facility] Comment on above: Performed By: #### 7 600, 6399, 21069 #### [facility] of [address], [address] [place] [address] Dredge Engineer: Jeffery Ibarra MD CO2 [Moles/Vol] 25 mmol/L Normal 20-32 [facility] Comment on above: Performed By: #### 7 600, 6399, 73173 #### [facility] of [place] [address] Dredge Engineer: Jeffery Ibarra MD Creatinine [Mass/Vol] 0.80 mg/dL Normal 0.50-0.[address] [facility] Comment on above: Performed By: #### 7 600, 6399, 32146 #### [facility] of [place] [address] Dredge Engineer: Jeffery Ibarra MD GFR/1.73 sq M.predicted among non-blacks MDRD (S/P/Bld) [Vol rate/Area] 97 mL/min/{1.73_m2} Normal > OR = 60 [facility] Comment on above: Performed By: #### 7 600, 6399, 29846 #### [facility] of [place] [address] Dredge Engineer: Jeffery Ibarra MD Globulin (S) [Mass/Vol] 2.0 g/dL Normal 1.9-3.7 [facility] Comment on above: Performed By: #### 7 600, 6399, 92778 #### [facility] [place] [address] Dredge Engineer: Jeffery Ibarra MD Glucose [Mass/Vol] 83 mg/dL Normal 65-99 [facility] Comment on above: Result Comment: Fasting reference interval Performed By: #### 7 600, 6399, 27323 #### [facility] of [place] [address] Dredge Engineer: Jeffery Ibarra MD Potassium [Moles/Vol] 4.0 mmol/L Normal 3.5-5.[address] [facility] Comment on above: Performed By: #### 7 600, 6399, 10365 #### [facility] [place] [address] Dredge Engineer: Jeffery Ibarra MD Protein [Mass/Vol] 6.4 g/dL Normal 6.1-8.1 [facility] Comment on above: Performed By: #### 7 600, 6399, 50659 #### [facility] of [address], [address] [place] [address] Dredge Engineer: Jeffery Ibarra MD Sodium [Moles/Vol] 141 mmol/L Normal 135-146 [facility] Comment on above: Performed By: #### 7 600, 6399, 88992 #### [facility] of [address], [address] [place] [address] Dredge Engineer: Jeffery Ibarra MD Urea nitrogen [Mass/Vol] 12 mg/dL Normal 7-25 [facility] Comment on above: Performed By: #### 7 600, 6399, 14953 #### [facility] of [address], [address] [place] [address] Dredge Engineer: Jeffery Ibarra MD FERRITINon 10-28-2024 Ferritin [Mass/Vol] 51 ng/mL Normal 16-154 [facility] Comment on above: Performed By: #### 7 600, 6399, 79985 #### [facility] of [address], [address] [place] [address] Dredge Engineer: Jeffery Ibarra MD LIPID PANEL, STANDARDon 10-01 Cholesterol [Mass/Vol] 163 mg/dL Normal <200 [facility] Comment on above: Order Comment: FASTI NG:YES FASTING: YES Performed By: #### 7 600, 6399, 51007 #### [facility] of [address], [address] [place] [address] Dredge Engineer: Jeffery Ibarra MD Cholesterol in HDL [Mass/Vol] 58 mg/dL Normal > OR = 50 [facility] Comment on above: Order Comment: FASTI NG:YES FASTING: YES Performed By: #### 7 600, 6399, 93934 #### [facility] of [place] [address] Dredge Engineer: Jeffery Ibarra MD Cholesterol in LDL [...] LDL-C. Sea SS et al. CRISTI. 2013;310(19): 1021-0027 (http://[employer].Charitas/faq/VHY714) Performed By: #### 7 600, 6399, 77341 #### [facility] [address], [address] [place] [address] Dredge Engineer: Jeffery Ibarra MD Cholesterol.total/Cho lesterol in HDL [Mass ratio] 2.8 {ratio} Normal <5.0 [facility] Comment on above: Order Comment: FASTI NG:YES FASTING: YES Performed By: #### 7 600, 6399, 92939 #### [facility] [address], [address] [place] [address] Dredge Engineer: Jeffery Ibarra MD NON HDL CHOLESTEROL 105 mg/dL (calc) Normal <130 [facility] Comment on above: Order Comment: FASTI NG:YES FASTING: YES Result Comment: For patients with diabetes plus 1 major ASCVD risk factor, treating to a non-HDL-C goal of <100 mg/dL (LDL-C of <70 mg/dL) is considered a therapeutic option. Performed By: #### 7 600, 6399, 55756 #### [facility] [address], [address] [place] [address] Dredge Engineer: Jeffery Ibarra MD Triglyceride [Mass/Vol] 63 mg/dL Normal <150 [facility] Comment on above: Order Comment: FASTI NG:YES FASTING: YES Performed By: #### 7 600, 6399, 84593 #### [facility] [address], [address] [place] [address] Dredge Engineer: Jeffery Ibarra MD HCG ( test) Ql (U)o n 09-30-2024 Interpretation and review of laboratory results Normal [facility] Work Phone: Preg Test, Ur Negative Negative [facility] Work Phone: [facility] Work Phone: POCT UA Automated manually r esultedOrdered By: Kathy Lama on 09-30-2024 Appearance (U) Clear Clear [facility] Glucose Test strip (U) [Mass/Vol] Negative NEGATIVE mg/dl [facility] Hemoglobin Ql (U) Negative NEGATIVE [facility] Interpretation and review of laboratory results Normal [facility] Leukocyte esterase Test strip Ql (U) Negative NEGATIVE [facility] Nitrite Ql (U) Negative NEGATIVE [facility] pH (U) 7.0 [pH] No Reference Range Established [facility] POC Bilirubin, Urine Negative NEGATIVE [facility] POC Color, Urine Yellow Straw, Yellow, Light-Yellow [facility] POC Ketones, Urine Negative NEGATIVE mg/dl [facility] POC Protein, Urine Negative NEGATIVE mg/dl [facility] POC Specific [place], Urine 1.010 1.005 - 1.035 [facility] POC Urobilinogen, Urine 0.2 0.2, 1.0 EU/DL [facility] XR Lumbar spine 2 or 3 Views on 09-30-2024 No acute pathologic findings are identified. MACRO: none Signed by: Bimal Christie 09/30/2024 9:13 AM Dictation workstation: [id number] [facility]AL Interpreted By: Bimal Juan, STUDY: XR LUMBAR SPINE 2-3 VIEWS; 09/30/2024 9:10 am INDICATION: Signs/Symptoms:lbp. COMPARISON: None. ACCESSION NUMBER(S): [id number] ORDERING CLINICIAN: YOANDY RAINEY TECHNIQUE: Lumbar spine two views FINDINGS: No fractures or destructive lesions are identified. Disc spaces are maintained in height. Vertebral alignment is within normal limits. Pedicles are intact. [facility] Bimal Christie MD - 09/30/2024 Interpreted By: Bimal Christie, STUDY: XR LUMBAR SPINE 2-3 VIEWS; 09/30/2024 9:10 am INDICATION: Signs/Symptoms:lbp. COMPARISON: None. ACCESSION NUMBER(S): [id number] ORDERING CLINICIAN: YOANDY RAINEY TECHNIQUE: Lumbar spine two views FINDINGS: No fractures or destructive lesions are identified. Disc spaces are maintained in height. Vertebral alignment is within normal limits. Pedicles are intact. IMPRESSION: No acute pathologic findings are identified. 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 Performed by Elizabeth Smith, Energy Efficient Site Manager (ASCP) This nucleic acid amplification test detects fourteen high-risk HPV types (16,18,31,33,35,39,45,51,52,56,58,59,66,68) without differentiation. HPV Results: HPV Aptima :Negative HPV Genotype Reflex Criteria not met, HPV Genotype not performed. TESTING PERFORMED AT [facility]. ORIGINAL REPORT ON FILE IN LAB CONTAINS ADDITIONAL TEST SITE INFORMATION. Performed By: #### L 7400.0280 #### [facility] [address] [place], [address] Pelvic w/ Transvaginalon Pelvic w/ Transvaginal [facility] Imaging Services [address] [place] [address] Pelvic w/ Transvaginal MR#: [id number] Acct: [id number] Name: CORBY HENDRICKSON Rep #: [id number] : 1985 F 39 From: Kodi Ocampo MD PCP: BRYAN Daley Status: REG CLI Study: Pelvic w/ Transvaginal Date of Exam: 06/23/24 Exam# [id number] Ordering Dr: Patsy Mcpherson EXAM: Pelvic ultrasound [...] IMPRESSION: No suspicious sonographic findings. 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 Normal [facility] Absolute neutrophil countOrd ered By: Patsy Mcpherson on 06-18-2024 Neutrophils (Bld) [#/Vol] 7.1 10*3/uL 2.0-7.7 [facility] Anion gap in Serum or Plasma Ordered By: Patsy Mcpherson on 06-18-2024 Anion gap [Moles/Vol] 12 mmol/L 5- [facility] BUN/creatinine ratioOrdered By: Patsy Mcpherson on 06-18-2024 Urea nitrogen/Creatinine [Mass ratio] 17.1 mg/mg - [facility] Basophil percentageOrdered B y: Patsy Mcpherson on 06-18-2024 Basophils/100 WBC (Bld) 0.9 % 0-1 [facility] Bilirubin, totalOrdered By: Patsy Mcpherson on 06-18-2024 Bilirubin [Mass/Vol] 1.34 mg/dL High 0.00-1.30 [facility] CBC W/Diff, Automatedon 05-31-2024 Absolute Lymph 1.05 X10 3/uL Normal 0.83-4.51 [facility] Comment on above: Performed By: #### L 501.9520, L506.0400, L100.0100, L500.4050 #### [facility] [address] [place], [address] Absolute Neut 7.1 X10 3/uL Normal 2.0-7.7 [facility] Comment on above: Performed By: #### L 501.9520, L506.0400, L100.0100, L500.4050 #### [facility] [address] [place], [address] Basophils/100 WBC (Bld) 0.9 % Normal 0-1 [facility] Comment on above: Performed By: #### L 501.9520, L506.0400, L100.0100, L500.4050 #### [facility] [address] [place], [address] Eosinophils/100 WBC (Bld) 0.9 % Normal 0-5 [facility] Comment on above: Performed By: #### L 501.9520, L506.0400, L100.0100, L500.4050 #### [facility] [address] [place], [address] Erythrocyte distribution width (RBC) [Ratio] 13.0 % Normal 11.6-14.6 [facility] Comment on above: Performed By: #### L 501.9520, L506.0400, L100.0100, L500.4050 #### [facility] [address] [place], [address] Hematocrit (Bld) [Volume fraction] 41.7 % Normal 37-47 [facility] Comment on above: Performed By: #### L 501.9520, L506.0400, L100.0100, L500.4050 #### [facility] [address] [place], [address] Hemoglobin (Bld) [Mass/Vol] 13.9 g/dL Normal 12.0-15.0 [facility] Comment on above: Performed By: #### L 501.9520, L506.0400, L100.0100, L500.4050 #### [facility] [address] [place], [address] IG% 0.400 Normal 0.0-0.9 [facility] Comment on above: Result Comment: IG% - Immature Granulocytes (promyelocytes, myelocytes and metamyelocytes) > 1% indicates that a LEFT SHIFT is Present. Performed By: #### L 501.9520, L506.0400, L100.0100, L500.4050 #### [facility] [address] [place], [address] Lymphocytes/100 WBC (Bld) 11.6 % Low 19-41 [facility] Comment on above: Performed By: #### L 501.9520, L506.0400, L100.0100, L500.4050 #### [facility] [address] [place], [address] MCH (RBC) [Entitic mass] 32.4 pg High 27.0-32.0 [facility] Comment on above: Performed By: #### L 501.9520, L506.0400, L100.0100, L500.4050 #### [facility] [address] [place], [address] MCHC (RBC) [Mass/Vol] 33.3 g/dL Normal 32-36 [facility] Comment on above: Performed By: #### L 501.9520, L506.0400, L100.0100, L500.4050 #### [facility] [address] [place], [address] MCV (RBC) [Entitic vol] 97.2 fL Normal 81-99 [facility] Comment on above: Performed By: #### L 501.9520, L506.0400, L100.0100, L500.4050 #### [facility] [address] [place], [address] Monocytes/100 WBC (Bld) 8.1 % Normal 0-10 [facility] Comment on above: Performed By: #### L 501.9520, L506.0400, L100.0100, L500.4050 #### [facility] [address] [place], [address] Neutrophils/100 WBC (Bld) 78.1 % High 47-70 [facility] Comment on above: Performed By: #### L 501.9520, L506.0400, L100.0100, L500.4050 #### [facility] [address] [place], [address] Nucleated RBC (Bld) [#/Vol] 0 10*3/uL Normal 0-5 [facility] Comment on above: Performed By: #### L 501.9520, L506.0400, L100.0100, L500.4050 #### [facility] [address] [place], [address] Platelet mean volume (Bld) [Entitic vol] 10.4 fL Normal 6.2-12.0 [facility] Comment on above: Performed By: #### L 501.9520, L506.0400, L100.0100, L500.4050 #### [facility] [address] [place], [address] Platelets (Bld) [#/Vol] 257 10*3/uL Normal 150-450 [facility] Comment on above: Performed By: #### L 501.9520, L506.0400, L100.0100, L500.4050 #### [facility] [address] [place], [address] RBC (Bld) [#/Vol] 4.29 10*6/uL Normal 4.2-5.4 [facility] Comment on above: Performed By: #### L 501.9520, L506.0400, L100.0100, L500.4050 #### [facility] [address] [place], [address] RDW SD 45.9 fl High 35.1-43.9 [facility] Comment on above: Performed By: #### L 501.9520, L506.0400, L100.0100, L500.4050 #### [facility] [address] [place], [address] WBC (Bld) [#/Vol] 9.0 10*3/uL Normal 4.4-11.0 [facility] Comment on above: Performed By: #### L 501.9520, L506.0400, L100.0100, L500.4050 #### [facility] [address] [place], [address] Carbon dioxide, total [Moles /volume] in Central venous bloodOrdered By: Patsy Mcpherson on 06-18-2024 CO2 [Moles/Vol] 24.9 mmol/L 21.0-32.0 [facility] Chloride assayOrdered By: Addie Mcpherson on 06-18-2024 Chloride [Moles/Vol] 105 mmol/L 98-108 [facility] Comprehensive Metabolic Prof ilon 06-18-2024 Albumin [Mass/Vol] 4.4 g/dL Normal 3.5-5.0 [facility] Comment on above: Performed By: #### L 501.9520, L506.0400, L100.0100, L500.4050 #### [facility] [address] [place], [address] Albumin/Globulin [Mass ratio] 1.8 {ratio} Normal 0.9-2.4 [facility] Comment on above: Performed By: #### L 501.9520, L506.0400, L100.0100, L500.4050 #### [facility] [address] [place], [address] ALK PHOS 53 U/L Normal 35-104 [facility] Comment on above: Performed By: #### L 501.9520, L506.0400, L100.0100, L500.4050 #### [facility] [address] [place], [address] ALT [Catalytic activity/Vol] 18 U/L Normal <=34 [facility] Comment on above: Performed By: #### L 501.9520, L506.0400, L100.0100, L500.4050 #### [facility] [address] [place], [address] AST [Catalytic activity/Vol] 15 U/L Normal <=31 [facility] Comment on above: Performed By: #### L 501.9520, L506.0400, L100.0100, L500.4050 #### [facility] [address] [place], [address] Bilirubin [Mass/Vol] 1.34 mg/dL High 0.00-1.30 [facility] Comment on above: Performed By: #### L 501.9520, L506.0400, L100.0100, L500.4050 #### [facility] [address] [place], [address] BUN/CRE 17.1 RATIO Normal 10-20 [facility] Comment on above: Performed By: #### L 501.9520, L506.0400, L100.0100, L500.4050 #### [facility] [address] [place], [address] Calcium [Mass/Vol] 9.3 mg/dL Normal 7.6-11.0 [facility] Comment on above: Performed By: #### L 501.9520, L506.0400, L100.0100, L500.4050 #### [facility] [address] [place], [address] Chloride [Moles/Vol] 105 mmol/L Normal 98-108 [facility] Comment on above: Performed By: #### L 501.9520, L506.0400, L100.0100, L500.4050 #### [facility] [address] [place], [address] CO2 [Moles/Vol] 24.9 mmol/L Normal 21.0-32.0 [facility] Comment on above: Performed By: #### L 501.9520, L506.0400, L100.0100, L500.4050 #### [facility] [address] [place], [address] Creatinine [Mass/Vol] 0.82 mg/dL Normal 0.70-1.20 [facility] Comment on above: Performed By: #### L 501.9520, L506.0400, L100.0100, L500.4050 #### [facility] [address] [place], [address] GAP 12 Normal 5-15 [facility] Comment on above: Performed By: #### L 501.9520, L506.0400, L100.0100, L500.4050 #### [facility] [address] [place], [address] GFR/1.73 sq M.predicted among non-blacks MDRD (S/P/Bld) [Vol rate/Area] 94 mL/min/{1.73_m2} Normal >60 [facility] Comment on above: Result Comment: mL/m in/1.73m2 CKD-EPI Creatinine Equation (2020) Performed By: #### L 501.9520, L506.0400, L100.0100, L500.4050 #### [facility] [address] [place], [address] Globulin (S) [Mass/Vol] 2.4 g/dL Normal 2.2-4.2 [facility] Comment on above: Performed By: #### L 501.9520, L506.0400, L100.0100, L500.4050 #### [facility] [address] [place], [address] Glucose [Mass/Vol] 74 mg/dL Normal 70-99 [facility] Comment on above: Performed By: #### L 501.9520, L506.0400, L100.0100, L500.4050 #### [facility] [address] [place], [address] Potassium [Moles/Vol] 3.9 mmol/L Normal 3.3-5.1 [facility] Comment on above: Performed By: #### L 501.9520, L506.0400, L100.0100, L500.4050 #### [facility] [address] [place], [address] Sodium [Moles/Vol] 142 mmol/L Normal 133-145 [facility] Comment on above: Performed By: #### L 501.9520, L506.0400, L100.0100, L500.4050 #### [facility] [address] [place], [address] T PROT 6.8 g/dL Normal 5.9-8.4 [facility] Comment on above: Performed By: #### L 501.9520, L506.0400, L100.0100, L500.4050 #### [facility] [address] [place], [address] Urea nitrogen [Mass/Vol] 14 mg/dL Normal 4-19 [facility] Comment on above: Performed By: #### L 501.9520, L506.0400, L100.0100, L500.4050 #### [facility] [address] [place], [address] Eosinophil percentageOrdered By: Patsy Mcpherson on 06-18-2024 Eosinophils/100 WBC (Bld) 0.9 % 0-5 [facility] Erythrocyte distribution wid th ratioOrdered By: Patsy Mcpherson on 06-18-2024 Erythrocyte distribution width (RBC) [Ratio] 13.0 % 11.6-14.6 [facility] Erythrocyte distribution wid th standard deviationOrdered By: Patsy Mcpherson on 06-18-2024 Erythrocyte distribution width (RBC) [Entitic vol] 45.9 fL High 35.1-43.9 [facility] GFR/1.73 sq M.predicted henry g non-blacks MDRD (S/P/Bld) [Vol rate/Area]Ordered By: Patsy Mcpherson on 06-18-2024 Estimated GFR (MDRD) Non-Af Amer 94 >60 [facility] Comment on above: mL/min/1.73m2 CKD-EP I Creatinine Equation (2020) Hematocrit Auto (Bld) [Volum e fraction]Ordered By: Patsy Mcpherson on 06-18-2024 Hematocrit (Bld) [Volume fraction] 41.7 % 37-47 [facility] Hemoglobin measurementOrdere d By: Patsy Mcpherson on 06-18-2024 Hemoglobin (Bld) [Mass/Vol] 13.9 g/dL 12.0-15.0 [facility] Immature granulocytes/100 WB C Auto (Bld)Ordered By: Patsy Mcpherson on 06-18-2024 Immature granulocytes/100 WBC (Bld) 0.400 % 0.0-0.9 [facility] Comment on above: IG% - Immature Granu locytes (promyelocytes, myelocytes and metamyelocytes) > 1% indicates that a LEFT SHIFT is Present. Laboratory - Chemistry and C hemistry - challengeOrdered By: Patsy Mcpherson on 06-18-2024 AST [Catalytic activity/Vol] 15 U/L <32 [facility] Lymphocytes Auto (Unsp spec) [#/Vol]Ordered By: Patsy Mcpherson on 06-18-2024 Lymphocytes (Bld) [#/Vol] 1.05 10*3/uL 0.83-4.51 [facility] Lymphocytes/100 WBC Auto (Un sp spec)Ordered By: Patsy Mcpherson on 06-18-2024 Lymphocytes/100 WBC (Bld) 11.6 % Low 19-41 [facility] MCV (mean corpuscular volume ) determinationOrdered By: Patsy Mcpherson on 06-18-2024 MCV (RBC) [Entitic vol] 97.2 fL 81-99 [facility] Mean corpuscular hemoglobin (MCH) determinationOrdered By: Patsy Mcpherson on 06-18-2024 MCH (RBC) [Entitic mass] 32.4 pg High 27.0-32.0 [facility] Mean corpuscular hemoglobin concentration (MCHC) determinationOrdered By: Patsy Mcpherson on 06-18-2024 MCHC (RBC) [Mass/Vol] 33.3 g/dL 32-36 [facility] Mean platelet volume determi nationOrdered By: Patsy Mcpherson on 06-18-2024 Platelet mean volume (Bld) [Entitic vol] 10.4 fL 6.2-12.0 [facility] Monocyte percentageOrdered B y: Patsy Mcpherson on 06-18-2024 Monocytes/100 WBC (Bld) 8.1 % 0-10 [facility] Neutrophil percentageOrdered By: Patsy Mcpherson on 06-18-2024 Neutrophils/100 WBC (Bld) 78.1 % High 47-70 [facility] Nucleated red blood cell per centageOrdered By: Patsy Mcpherson on 06-18-2024 Nucleated RBC/100 WBC (Bld) [Ratio] 0 % 0-5 [facility] Stock Car Driver Office Visit Reporton 06-18-2024 Stock Car Driver Office Visit Report [facility] [address], [address] [place] [address] OFFICE VISIT Date of Service: 06/18/24 MR#: [id number] Acct: [id number] Name: CORBY HENDRICKSON Rep #: [id number] : 1985 Provider: ALEA Moore Age/Sex: 39/F Location: [facility] Status: Signed Intake Vital Signs 06/18/24 08:44 Height 4 ft 11 in Weight: 131 lb 6 oz BMI 26.5 BP 116/77 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 Normal [facility] Platelet countOrdered By: Addie Mcpherson on 06-18-2024 Platelets (Bld) [#/Vol] 257 10*3/uL 150-450 [facility] Potassium (Unsp spec) [Mass/ Vol]Ordered By: Patsy Mcpherson on 06-18-2024 Potassium [Moles/Vol] 3.9 mmol/L 3.3-5.1 [facility] RBC Auto (Bld) [#/Vol]Ordere d By: Patsy Mcpherson on 06-18-2024 RBC (Bld) [#/Vol] 4.29 10*6/uL 4.2-5.4 [facility] Serum creatinine measurement (mass/volume)Ordered By: Patsy Mcpherson on 06-18-2024 Creatinine [Mass/Vol] 0.82 mg/dL 0.70-1.20 [facility] Serum globulin measurementOr dered By: Patsy Mcpherson on 06-18-2024 Globulin (S) [Mass/Vol] 2.4 g/dL 2.2-4.2 [facility] Serum glucose measurement (m ass/volume)Ordered By: Patsy Mcpherson on 06-18-2024 Glucose [Mass/Vol] 74 mg/dL 70-99 [facility] Serum or plasma alanine gutierrez otransferase (ALT) measurementOrdered By: Patsy Mcpherson on 06-18-2024 ALT [Catalytic activity/Vol] 18 U/L <35 [facility] Serum or plasma albumin aishwarya urement (mass/volume)Ordered By: Patsy Mcpherson on 06-18-2024 Albumin [Mass/Vol] 4.4 g/dL 3.5-5.0 [facility] Serum or plasma albumin/glob ulin mass ratioOrdered By: Patsy Mcpherson on 06-18-2024 Albumin/Globulin [Mass ratio] 1.8 {ratio} 0.9-2.4 [facility] Serum or plasma alkaline tico sphatase measurementOrdered By: Patsy Mcpherson on 06-18-2024 ALP [Catalytic activity/Vol] 53 U/L 35-104 [facility] Serum or plasma calcium aishwarya urement (mass/volume)Ordered By: Patsy Mcpherson on 06-18-2024 Calcium [Mass/Vol] 9.3 mg/dL 7.6-11.0 [facility] Serum or plasma urea nitroge n measurement (mass/volume)Ordered By: Patsy Mcpherson on 06-18-2024 Urea nitrogen [Mass/Vol] 14 mg/dL 4-19 [facility] Sodium levelOrdered By: Rere Mcpherson on 06-18-2024 Sodium [Moles/Vol] 142 mmol/L 133-145 [facility] T4 Free Directon 06-18-2024 T4 FREE DIRECT 1.30 ng/dL Normal 0.76-1.46 [facility] Comment on above: Performed By: #### L 501.9520, L506.0400, L100.0100, L500.4050 #### [facility] [address] [facility] [place], [address] T4 freeOrdered By: Patsy holman on 06-18-2024 Free T4 [Mass/Vol] 1.30 ng/dL 0.76-1.46 [facility] TSH DL <= 0.005 mIU/L QnOrde red By: Patsy Mcpherson on 06-18-2024 Thyroid Stimulating Hormone (TSH) 2.240 uIU/mL 0.300-4.200 [facility] Thyroid Stim Hormone (TSH)on 06-18-2024 TSH 2.240 uIU/mL Normal 0.300-4.200 [facility] Comment on above: Performed By: #### L 501.9520, L506.0400, L100.0100, L500.4050 #### [facility] [address] [place], [address] Total proteinOrdered By: Vic Mcpherson on 06-18-2024 Protein [Mass/Vol] 6.8 g/dL 5.9-8.4 [facility] White blood cell (WBC) count Ordered By: Patsy Mcpherson on 06-18-2024 WBC (Bld) [#/Vol] 9.0 10*3/uL 4.4-11.0 [facility] Hand / UE Inj/Asp: R elbowon [...] to verify the correct patient, procedure, equipment, support specialist and site/side marked as required. Patient was prepped and draped in the usual sterile fashion. [facility] Work Phone: [facility] Work Phone: US Abdomenon 06-12-2024 These images are not reportable by radiology and will not be interpreted by Radiologists. IMAGING XR Elbow - right 3 Viewson 1 05-22-2023 Small intra-articula r ossific bodies volarly versus remote avulsion injury to the coronoid process.. MACRO: None Signed by: Paul Fuentes 03/21/2024 12:23 PM Dictation workstation: [id number] MMODAL Interpreted By: Paul Eng, STUDY: XR ELBOW RIGHT 3+ VIEWS; ; 03/20/2024 3:25 pm INDICATION: Signs/Symptoms:PAIN. ,M25.521 Pain in right elbow COMPARISON: None. ACCESSION NUMBER(S): [id number] ORDERING CLINICIAN: LINDEN THOMASON FINDINGS: Right elbow, [...] in right elbow COMPARISON: None. ACCESSION NUMBER(S): [id number] ORDERING CLINICIAN: LINDEN THOMASON FINDINGS: Right elbow, [...] Paul Fuentes 03/21/2024 12:23 PM Dictation workstation: [id number] [facility] Work Phone: XR Elbow - right 3 ViewsOrde red By: Paul Fuentes on 03-21-2024 [facility] Work Phone: XR Elbow - right 3 Viewson 1 05-21-2023 Radiology Study observation (narrative) [facility] Work Phone: US Abdomenon 07-24-2023 These images are not reportable by radiology and will not be interpreted by Radiologists. IMAGING MR Hip - right WO contraston 07-09-2023 Mild right gluteus m edius tendinosis without evidence of tear. No evidence of other internal derangement right hip. Signed by: Josias Urias 07/09/2023 5:21 PM Dictation workstation: [id number] MMODAL Interpreted By: Josias Gil, STUDY: MR HIP RIGHT WO IV CONTRAST; INDICATION: Signs/Symptoms:pain. COMPARISON: Plain film radiographs of the pelvis and right hip performed on April 22, 2023 ACCESSION NUMBER(S): [id number] ORDERING CLINICIAN: TERRANCE KAUFFMAN TECHNIQUE: Routine multiplanar [...] performed on April 22, 2023 ACCESSION NUMBER(S): [id number] ORDERING CLINICIAN: TERRANCE KAUFFMAN TECHNIQUE: Routine multiplanar [...] Josias Urias 07/09/2023 5:21 PM Dictation workstation: [id number] [facility] Work Phone: Radiology Study observation (narrative) [facility] Work Phone: MR Hip - right WO contrastOr dered By: Josias Urias on 07-09-2023 [facility] Work Phone: L Inj/Asp: R hip jointon [...] to verify the correct patient, procedure, equipment, support specialist and site/side marked as required. Patient was prepped and draped in the usual sterile fashion. [facility] Work Phone: [facility] Work Phone: PT Outpatient Time Spent Wit h Pt-Texton 06-03-2023 PT Outpatient Time Spent With Pt-Text PT Outpatient Time Spent With Patient Entered On: 06/03/2023 10:21 EST Performed On: 06/03/2023 10:15 EST by Saroj Dorantes PTA Time Spent with Patient - Outpatient PT Time In : 08:46 EST PT Time Out : 09:33 EST PT Therapeutic Exercise Time : 21 minutes CAMPAIGN MANAGEMENT SPECIALIST Therapeutic Exercise Units : 1 units PT Neuromuscular Reeducation Time : 11 minutes CAMPAIGN MANAGEMENT SPECIALIST Neuromuscular Reeducation Units : 1 units PT Soft Tissue Mobility Time : 15 minutes CAMPAIGN MANAGEMENT SPECIALIST Soft Tissue Mobility Units : 1 units PT Total Timed Code Treatment Units : 3 units PT Total Timed Code Tx Minutes : 47 minutes 8 Min Rule Unit Check PT OP : 3 units PT Total Treatment Time Rehab : 47 minutes 8 Min Rule Unit Difference PT OP : 0 Saroj Dorantes PTA - 06/03/2023 10:15 EST Normal [facility] PT Outpatient Time Spent Wit h Pt-Texton 05-27-2023 PT Outpatient Time Spent With Pt-Text PT Outpatient Time Spent With Patient Entered On: 05/27/2023 11:35 EST Performed On: 05/27/2023 11:34 EST by Saroj Dorantes PTA Time Spent with Patient - Outpatient PT Time In : 08:50 EST PT Time Out : 09:32 EST PT Therapeutic Exercise Time : 17 minutes CAMPAIGN MANAGEMENT SPECIALIST Therapeutic Exercise Units : 1 units PT Neuromuscular Reeducation Time : 11 minutes CAMPAIGN MANAGEMENT SPECIALIST Neuromuscular Reeducation Units : 1 units PT Soft Tissue Mobility Time : 14 minutes CAMPAIGN MANAGEMENT SPECIALIST Soft Tissue Mobility Units : 1 units PT Total Timed Code Treatment Units : 3 units PT Total Timed Code Tx Minutes : 42 minutes 8 Min Rule Unit Check PT OP : 3 units PT Total Treatment Time Rehab : 42 minutes 8 Min Rule Unit Difference PT OP : 0 Saroj Dorantes PTA - 05/27/2023 11:34 EST Normal [facility] Therapy Benefits Information - Texton 04-29-2023 Therapy Benefits Information - Text Rehab - Therapy Benefits Information Entered On: 04/29/2023 16:44 EST Performed On: 04/29/2023 16:42 EST by Viki Delcid Therapy Benefits Information Patient Name: : CORBY HENDRICKSON Date of : : 1985 Appointment Date: : 05/06/2023 08:45 EST Primary Name : MMO Policy # : [id number] Group # : [id number] Authorization,Pre-Cert or Referral Required : No Edie [...] Delcid Viki - 04/29/2023 16:42 EST Normal 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 Signed by: Michael Sheldon 04/23/2023 12:47 PM Dictation workstation: [id number] MMODAL Interpreted By: Michael Leung, STUDY: Pelvis and right hip dated 04/22/2023. INDICATION: Signs/Symptoms:right hip pain COMPARISON: Radiographs dated 02/06/2020. ACCESSION NUMBER(S): [id number] ORDERING CLINICIAN: TERRANCE KAUFFMAN TECHNIQUE: AP and [...] pain COMPARISON: Radiographs dated 02/06/2020. ACCESSION NUMBER(S): [id number] ORDERING CLINICIAN: TERRANCE KAUFFMAN TECHNIQUE: AP and [...] Michael Sheldon 04/23/2023 12:47 PM Dictation workstation: [id number] [facility] Work Phone: XR Hip ViewsOrdered By: Adam Sheldon on 04-23-2023 [facility] Work Phone: XR Hip Viewson 04-22-2023 Radiology Study observation (narrative) [facility] Work Phone: Patient Letteron 12-11-2022 Patient Letter (Inserted Image. Viji ble to display) December 11, 2022 CORBY HENDRICKSON [id number] [place] [address] Dear Corby, You are due for your follow up appointment with us. Please call the office at [phone] to schedule. Thank you, [facility] SHARYN CAT MD [facility] Phone Msgon 12-10-2022 Phone Msg - From: Amparo Delgado To: Dona Carrington; Sent: 12/10/2022 08:37:48 EDT Subject: Physical therapy dx Caller Name: CORBY HENDRICKSON; Caller Number: H Pt was given prescription for physical therapy but there was no dx code on it. Could you please have that updated and I can fax that to [facility]. If you need to speak with the patient, she can be reached at [phone]. Thank you. From: Dona Carrington To: Amparo Delgado; Sent: 12/10/2022 09:22:07 EDT Subject: RE: Physical therapy dx Actions: Message Caller Name: CORBY HENDRICKSON; Caller Number: H I tried to call the pt she did not answer and VM is not identified. she can write the Dx on the order she has that Dr Cat already signed. Dyspareunia in female N94.[address] [facility] Therapy Benefits Information - Texton 12-10-2022 Therapy Benefits Information - Text Rehab - Therapy Benefits Information Entered On: 12/10/2022 13:41 EDT Performed On: 12/10/2022 13:39 EDT by Gaby Grayson Therapy Benefits Information Patient Name: : CORBY HENDRICKSON Date of : : 1985 Appointment Date: : 12/11/2022 16:00 EDT Primary Name : Yunior Saeed Phone # : [phone] Policy # : [id number] Effective Date: : 04/01/2022 EST Authorization,Pre-Cert or [...] Visits based on AUTH. ABIMAEL garcia @ [phone] Option #3 REF#[id number] Reviewed with Patient: : No Date/Time : 12/10/2022 13:41 EDT Benefits Verified By : Kenan Gbayrudy Gryason Gaby - 12/10/2022 13:39 EDT Normal [facility] Physician Progress No carolyn 11-28-2022 [facility] Physician Progress Note CORBY HENDRICKSON :1985 Registration Date:11/28/2022 Assessment/Plan This Visit Diagnosis 1. Dyspareunia in female N94.10 will add pelvic floor PT Ordered: AMB Office/Outpt New Pt Low MDM / 30-44 min 17680, 11/28/2022 10:12:00 EDT, Dyspareunia in female [facility] Ultrasound, transvaginal 21991, 11/28/2022 07:46:00 EDT, Dyspareunia in female, 1 [...] Tabs Oral TWICE A DAY Chief Complaint PARA PROFESSIONAL - Here for painful intercourse - on [...] effort Extremities: no edema Psychiatric: Mood: normal INDUSTRIAL TECHNICIAN: External genitalia: normal, no lesions Urethra: normal meatus Vagina: normal no lesions, scant discharge, tender to palpation along the posterior wall Cervix: no lesions, no cervical motion tenderness, normal appearance Uterus: normal mobility, non-tender, normal size, shape and consistency Adnexa: normal Cul de sac: normal Perineum: no hemorrhoids, masses or warts noted INDUSTRIAL TECHNICIAN Additional Details-Patient Stated Menstrual History Menstrual StatusMenarcheal Last Menstrual Etyack1011/08/2022 INDUSTRIAL TECHNICIAN Screening Date of Last Pap Smear09/06/2022 Last [...] by: BEST (more content not included)... Normal [facility] Ambulatory Clinical Summaryo n 11-28-2022 Ambulatory Clinical [...] call to get immediate medical attention! Normal [facility] Comprehensive Intake - Texto n 11-28-2022 Comprehensive Intake - Text Comprehensive Intake Entered On: 11/28/2022 9:17 EDT Performed On: 11/28/2022 9:13 EDT by Dona Carrington Summary Chief Complaint : PARA PROFESSIONAL - Here for painful intercourse - on [...] living, hemodialysis, infusion clinic, snf, assisted living, usp, homeless alf, etc.)? : No Dona Carrington 11/28/2022 9:13 [...] year Dona Carrington 11/28/2022 9:13 EDT [address] [facility] INDUSTRIAL TECHNICIAN Visit - Texton INDUSTRIAL TECHNICIAN Visit - Text INDUSTRIAL TECHNICIAN Visit Entered On : 11/28/2022 9:18 EDT Performed On: 11/28/2022 9:17 EDT by Dona Carrington INDUSTRIAL TECHNICIAN Menstrual History Menstrual Status : Menarcheal Dona Carrington - 11/28/2022 9:17 EDT INDUSTRIAL TECHNICIAN Screenings Date of Last Pap Smear : 09/06/2022 Last Pap Result : Negative Last Pap Result Comment : Neg HPV Dona Carrington 11/28/2022 9:28 EDT Date of Last Mammogram : Never Dona Carrington - 11/28/2022 9:17 EDT Contraception Contraception Method : Other hormonal method Additional Hormonal Contraception Types : Vaginal ring Dona Carrington - 11/28/2022 9:17 EDT Normal [facility] US TV ECHO NON OB OFFICE IFEANYI [...] the pelvis. Impression: Normal pelvic ultrasound. Normal [facility] Comment on above: Order Comment: Order ed on [facility]# [id number] Result Comment: Tech nologist: LK Dictated By: [...] Est Pt Low MDM / 20-29 min [id number], 08/13/2022 15:46:00 EDT, Acid reflux Problem List/Past [...] Care Team Primary Care Physician ANGEL PENNY [phone] Attending Physician COLIN STEIN MD [phone] . Health Maintenance Pending (in the next year) Due COVID-19 Vaccine due 08/13/22 Variable frequency MMR Vaccine Dose 1 due 08/13/22 One-time only Tetanus Vaccine due 08/13/22 Variable frequency Varicella Vaccine Dose 1 due 08/13/22 One-time only Satisfied (in the past 1 year) There are no satisfied recommendations within the defined date range Normal [facility] Comprehensive Intake - Texto n 08-13-2022 Comprehensive [...] in, 150 cm) Body Mass Index Measured Vietnamese : 27.67 kg/m2 BSA Vietnamese : 1.61 m2 Ht/Wt Measurement Refused by [...] living, hemodialysis, infusion clinic, snf, assisted living, usp, homeless alf, etc.)? : No Sintia Panchal MA - [...] Panchal MA - 08/13/2022 15:18 EDT [address] [facility] Provider Letter - Ambulatory on 08-13-2022 Provider Letter - Ambulatory ANGEL PENNY, [address] [facility] [address] [place] [address] RE: CORBY HENDRICKSON 08/13/2022 Dear ANGEL PENNY [...] EDT - (08/13/2022) *.AMB Office Visit Note [facility] Provider Letter - Ambulatory ANGEL PENNY, [facility] [place] [address] RE: CORBY HENDRICKSON 08/13/2022 Dear ANGEL PENNY [...] EDT - (08/13/2022) *.AMB Office Visit Note [facility] Phone Msgon 08-06-2022 Phone Msg - From: [...] and let her know Pt aware. Normal [facility] SURGICAL PATH REPORTon 08-01 SURGICAL PATH REPORT [facility] Department of Pathology [address] [place] [id number] Name: CORBY HENDRICKSON : 1985 [facility] [id number] Number: Gender Female Locatio SW ENDO : n: Admit 37 years Attending COLIN STEIN MD Age: Provider: Ordering COLIN STEIN MD Provider: Consulti Surgical Pathology Report ng: ACCESSION: COLLECTED DATE/TIME: RECEIVED DATE/TIME: PATHOLOGIST: [id number] 07/31/2022 11:46 EDT 07/31/2022 12:47 EDT SEA [...] ____ Print 08/03/2022 10:49 EDT Number: Date/Time: [facility] Department of Pathology [address] [place] [phone] Name: CORBY HENDRICKSON : 1985 [facility] [id number] Number: Gender Female Locatio ENDO : n: Admit 37 years Attending COLIN STEIN MD Age: Provider: Ordering COLIN STEIN MD Provider: Consulti Surgical Pathology Report ng: ACCESSION: COLLECTED DATE/TIME: RECEIVED DATE/TIME: PATHOLOGIST: [id number] 07/31/2022 11:46 EDT 07/31/2022 12:47 EDT SEA MYERS MD Gross Description MP/ ww 07/31/2022 Microscopic Diagnosis The final diagnosis is based on a microscopic exam of telephone service representative sections. NOTE: One or more of the reagents used to perform assays on this specimen MAY have contained components considered to be analyte specific reagents ( ASRs). ASRs have not been cleared or approved by the U.S. Food and Drug Administration. The performance characteristics of these assays have been determined by the Department of Pathology at [facility]. This assay was performed subsequent to the H and E examination. Appropriate positive and negative controls were examined with appropriate reactivity. Codes CPT CODE: 09866 X 2 + [id number] ____ Print 08/03/2022 10:49 EDT Number: Date/Time: [facility] Comment on above: Performed By: #### 9 [id number] #### [facility] Laboratory Services [address] [place] [address] Dredge Engineer: Sea Myers MD Anesthesiaon 07-31-2022 Anesthesia [...] and vomiting. Postoperative hydration status: euvolemic. Normal [facility] Anesthesia Patient: Roxana HENDRICKSON Age: 37 years [...] palate, fauces, uvula visible). Assessment and Plan [place] Society of Anesthesiologists (ASA) physical status classification: Class II. Anesthetic Preoperative Plan Anesthetic technique: General anesthesia. Special monitoring: Standard ASA monitors. Risks discussed: nausea, vomiting, headache, sore throat, dental injury, hypotension, allergic reaction, serious complications. Notes: Notes: Ethnicity: Non , white Smoking: reviewed . Normal [facility] ENDO Initial Data VS HW Prep -Texton [...] Cannon RN - 07/31/2022 10:25 EDT [address] [facility] ENDO Outpatient Admission Da taMarcoon 07-31-2022 ENDO [...] : No Person Driving Pt Home : [facility] Surgeon Speak with Marketing Regional Consultant : Yes Voided : Yes Pain Level and Site : 0 Paulina Cannon RN - 07/31/2022 10:25 EDT Present on Admission Medical Devices : None Paulina Cannon RN 07/31/2022 10:25 EDT [place] Coma Eye Opening Response [place] : Spontaneously Best Verbal Response [place] : Oriented Best Motor Response [place] : [...] Cannon RN - 07/31/2022 10:25 EDT Normal [facility] Inpatient Patient Summaryon 07-31-2022 Inpatient Patient Summary [facility] Discharge Instructions [id number] [phone] (Patient Copy) Name: CORBY HENDRICKSON : 1985 Diagnosis: Allergies: No Known Medication Allergies Registration Date: 07/31/22 Current Date Time: 07/31/2022 12:07:40 Address: [address] [place] [address] Phone: [phone] Primary Care Provider: Name: ANGEL PENNY Phone: [phone] Thank you for choosing [facility] for your care. You are very important to us. Our goal is to demonstrate our high quality medical care and provide you with a very good patient experience. You may receive a survey about our service. Please take the time to complete the survey and return it so we can continue to enhance our service. Thank you again for allowing [facility] to care for your medical needs. If you have any questions about your care or follow up information please contact your doctor. Follow-up Instructions With: Address: When: COLIN STEIN, Gastroenterology [address] [facility], [address] [place] [address] [phone] Business (1) Within Call for Appointment Procedure [...] education materials, if any, will display below [facility] ENDOSCOPY DEPARTMENT FOLLOW UP CARE ? [...] physician?s office at: THANK YOU FOR CHOOSING [facility] ENDOSCOPY DEPARTMENT FOR YOUR PROCEDURE! [phone] This information is not intended to replace advice given to you by your health care provider. Make sure you discuss any questions you have with your health care provider. ExitCare? Patient Information ?2016 [employer]. Custom Education added 04/2018 Hiatal Hernia: Care [...] cause sy (more content not included)... Normal [facility] OR Nursing Record - Endoon 0 07-31-2022 OR Nursing Record - Endo OR Nursing Record - Endo Summary Primary Physician: COLIN STEIN MD Finalized Date/Time: 07/31/22 11:49:54 Pt. Name: CORBY HENDRICKSON/Sex: 1985 Female Med Rec #: [id number] Physician: Financial #: [id number] Pt. Type: A Room/Bed: / Admit/Disch: 07/31/22 09:12:33 - Institution: Case Times - Endo Entry 1 Patient In Room Time 07/31/22 11:35:00 Out Room Time 07/31/22 11:55:00 Anesthesia Facility Times Induction Time 07/31/22 11:39:00 Stop Time 07/31/22 11:55:00 [facility] Protocol Yes Completed Surgery Start Time 07/31/22 [...] Jen Gooden RN Role Performed Surgeon Primary Modular Set Crew Member Primary Scrub Primary Time In 07/31/22 11:35:00 07/31/22 11:35:00 07/31/22 11:35:00 Time Out 07/31/22 11:55:00 07/31/22 11:55:00 07/31/22 11:55:00 Procedure EGD with MAC(None) EGD with MAC(None) EGD with MAC(None) Last Modified By: Diamond Hastings RN, RN, Diamond Lilly RN 07/31/22 11:49:51 07/31/22 11:49:51 07/31/22 11:49:51 Entry 4 Entry 5 Case Attendee TREMAYNE LEE, NELSON PINEDA Role Performed Anesthesiologist 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 Operative Reporton Operative Report Patient: Roxana HENDRICKSON [...] H. pylori with antibiotics if positive. Normal [facility] Comment on above: Order Comment: Michelle santizo Attachment [id number] can be viewed in source system Missing Attachment [id number] can be viewed in source system Missing Attachment [id number] can be viewed in source system Missing Attachment [id number] can be viewed in source system Missing Attachment [id number] can be viewed in source system Result Comment: PACU Phase I - Endoon 2022 PACU Phase I - Endo PACU Phase I - Endo Summary Primary Physician: COLIN STEIN MD Finalized Date/Time: 07/31/22 15:00:18 Pt. Name: CORBY HENDRICKSON/Sex: 1985 Female Med Rec #: [id number] Physician: Financial #: [id number] Pt. Type: A Room/Bed: / Admit/Disch: 07/31/22 09:12:33 - Institution: PACU I Case Times - Endo Entry 1 In PACU I 07/31/22 11:53:00 Ready for Transfer 07/31/22 12:21:00 Last Modified By: Julia Guerrero RN 07/31/22 12:21:50 Finalized By: Julia Guerrero RN Document Signatures Signed By: Julia Guerrero RN 07/31/22 12:21 Julia Guerrero RN 07/31/22 15:[address] [facility] Preop - Endoon 07-31-2022 Preop - Endo Preop - Endo Summary Primary Physician: COLIN STEIN MD Finalized Date/Time: 07/31/22 10:40:32 Pt. Name: CORBY HENDRICKSON /Sex: 1985 Female Med Rec #: [id number] Physician: Financial #: [id number] Pt. Type: A Room/Bed: / Admit/Disch: 07/31/22 09:12:33 - Institution: Preop - Case Times - Endo Entry 1 Patient Arrival Time 07/31/22 10:11:00 Patient Ready for 07/31/22 10:40:00 Surgery Report Given to n/a Last Modified By: Paulina Cannon RN 07/31/22 10:40:31 Finalized By: Paulina Cannon RN Document Signatures Signed By: Paulina Cannon RN 07/31/22 10:40 [facility] Provider Letter - Ambulatory on 07-31-2022 Provider Letter - Ambulatory ANGEL PENNY, [facility] [address] RE: CORBY HENDRICKSON 07/31/2022 Dear ANGEL PENNY [...] - (07/31/2022) GI EGD with Anesthesia Normal [facility] U TESTon 3 Test, U Negative Normal [facility] Comment on above: Performed By: #### 1 [id number] #### [facility] Laboratory Services [address] [place] [address] Dredge Engineer: Sea Myers MD U Preg Internal QC Present Normal [facility] Comment on above: Performed By: #### 1 [id number] #### [facility] Laboratory Services [address] [place] [address] Dredge Engineer: Sea Myers MD Harrison Protocol/Pre-Proc TimeOut-Texton 07-31-2022 [place] Protocol/Pre-Proc TimeOut-Text [place] Protocol Entered On: 07/31/2022 10:30 EDT Performed [...] does not take a Beta Roxanna Paulina Cannno RN - 07/31/2022 10:25 EDT Site Marking Site Marking : Procedure is Exempt From Marking Laterality Harrison Protocol : N/A Paulina Cannon RN - [...] DAVID, Paulina - 07/31/2022 10:25 EDT [address] [facility] AMB GI Physician Progress No carolyn 07-19-2022 [...] Est Pt Mod MDM / 30-39 min 07204, 07/19/2022 13:30:00 EDT, Esophageal pain / Acid reflux 2. Acid reflux K21.9 Acid reflux increase PPI to twice daily Ordered: AMB EGD, 07/19/2022 13:30:00 EDT, [facility] AMB Follow - Up Appt Amb, 07/19/2022 13:30:00 EDT, 4 weeks AMB Office/Outpt Est Pt Mod MDM / 30-39 min 99019, 07/19/2022 13:30:00 EDT, Esophageal pain / Acid [...] Care Team Primary Care Physician ANGEL PENNY [phone] Attending Physician COLIN STEIN MD [phone] . Health Maintenance Pending (in the next year) Due COVID-19 Vaccine due 07/19/22 Variable frequency MMR Vaccine Dose 1 due 07/19/22 One-time only Tetanus Vaccine due 07/19/22 Variable frequency Varicella Vaccine Dose 1 due 07/19/22 One-time only Satisfied (in the past 1 year) There are no satisfied recommendations within the defined date range Normal [facility] Comprehensive Intake - Texto n 07-19-2022 Comprehensive [...] in, 150 cm) Body Mass Index Measured Vietnamese : 27.47 kg/m2 BSA Vietnamese : 1.6 m2 Sintia Panchal MA - [...] living, hemodialysis, infusion clinic, snf, assisted living, usp, homeless alf, etc.)? : No Sintia Panchal MA - [...] Ansley BONILLASintia - 07/19/2022 13:18 EDT Normal [facility] Basic metabolic 2000 panelon 06-11-2022 Anion gap [Moles/Vol] 9 mmol/L Normal 9-18 [facility] Comment on above: Order Comment: Ryan ruiz Type: BLOOD SPECIMEN Ordering Facility: [facility] Address: [address] [place] [address] Performed By: #### 2 4321-2 #### [facility] CLIA [id number] [address] [place] [address] [place] Calcium [Mass/Vol] 8.9 mg/dL Normal 8.5-10.2 [facility] Comment on above: Order Comment: Speci men Type: BLOOD SPECIMEN Ordering Facility: [facility] Address: [address] [place] [address] Performed By: #### 2 4321-2 #### [facility] CLIA [id number] [address] [place] [address] [place] Chloride [Moles/Vol] 106 mmol/L High 97-105 [facility] Comment on above: Order Comment: Speci men Type: BLOOD SPECIMEN Ordering Facility: [facility] Address: [address] [place] [address] Performed By: #### 2 4321-2 #### [facility] [place] [facility] CLIA [id number] [address] [place] [address] [place] CO2 [Moles/Vol] 24 mmol/L Normal 22-30 [facility] Comment on above: Order Comment: Speci men Type: BLOOD SPECIMEN Ordering Facility: [facility] Address: [address] [place] [address] Performed By: #### 2 4321-2 #### [facility] [place] [facility] CLIA [id number] [address] [place] [address] [place] Creatinine [Mass/Vol] 1.10 mg/dL High 0.58-0.96 [facility] Comment on above: Order Comment: Speci men Type: BLOOD SPECIMEN Ordering Facility: [facility] Address: [address] [place] [address] Performed By: #### 2 4321-2 #### [facility] [place] [facility] CLIA [id number] [address] [place] [address] [place] ESTIMATED GLOMERULAR FILTRATION RATE 67 mL/min/1.73m??? Normal >=60 [facility] Comment on above: Order Comment: Speci men Type: BLOOD SPECIMEN Ordering Facility: [facility] Address: [address] [place] [address] Result Comment: Sabrina mated Glomerular Filtration Rate [...] GFR. Performed By: #### 2 4321-2 #### [facility] [place] [facility] CLIA [id number] [address] [place] [address] [place] Glucose [Mass/Vol] 97 mg/dL Normal 74-99 [facility] Comment on above: Order Comment: Ryan ruiz Type: BLOOD SPECIMEN Ordering Facility: [facility] Address: [address] [place] [address] Result Comment: The [place] Diabetes Association (ADA) provides guidance for cutoff [...] Standards of Medical Care in Diabetes 2016, [place] Diabetes Association. Diabetes Care. 2016.39(Suppl 1). Performed By: #### 2 4321-2 #### [facility] [place] [facility] CLIA [id number] [address] [place] [address] [place] Potassium [Moles/Vol] 4.2 mmol/L Normal 3.7-5.1 [facility] Comment on above: Order Comment: Ryan ruiz Type: BLOOD SPECIMEN Ordering Facility: [facility] Address: [address] [place] [address] Performed By: #### 2 4321-2 #### [facility] [place] [facility] CLIA [id number] [address] [place] [address] [place] Sodium [Moles/Vol] 139 mmol/L Normal 136-144 [facility] Comment on above: Order Comment: Ryan ruiz Type: BLOOD SPECIMEN Ordering Facility: [facility] Address: [address] [place] [address] Performed By: #### 2 4321-2 #### [facility] [place] [facility] CLIA [id number] [address] [place] [address] [place] Urea nitrogen [Mass/Vol] 17 mg/dL Normal 7-21 [facility] Comment on above: Order Comment: Ryan ruiz Type: BLOOD SPECIMEN Ordering Facility: [facility] Address: [address] [place] [address] Performed By: #### 2 4321-2 #### [facility] [place] [facility] CLIA [id number] [address] [place] [address] [place] CBC W Auto Differential pane l (Bld)on 06-11-2022 Basophils (Bld) [#/Vol] 0.05 10*3/uL Normal <0.11 [facility] Comment on above: Order Comment: Speci men Type: BLOOD SPECIMEN Ordering Facility: [facility] Address: [address] [place] [address] Performed By: #### 5 7021-8 #### [facility] [place] [facility] CLIA [id number] [address] [place] [address] Basophils/100 WBC (Bld) 0.6 % Normal [facility] Comment on above: Order Comment: Speci men Type: BLOOD SPECIMEN Ordering Facility: [facility] Address: [address] [place] [address] Performed By: #### 5 7021-8 #### [facility] [place] [facility] CLIA [id number] [address] [place] [address] Differential cell count method Nom (Bld) Auto Normal [facility] Comment on above: Order Comment: Speci men Type: BLOOD SPECIMEN Ordering Facility: [facility] Address: [address] [place] [address] Performed By: #### 5 7021-8 #### [facility] [place] [facility] CLIA [id number] [address] [place] [address] [place] Eosinophils (Bld) [#/Vol] 0.16 10*3/uL Normal <0.46 [facility] Comment on above: Order Comment: Speci men Type: BLOOD SPECIMEN Ordering Facility: [facility] Address: [address] [place] [address] Performed By: #### 5 7021-8 #### [facility] [place] [facility] CLIA [id number] [address] [place] Eosinophils/100 WBC (Bld) 1.8 % Normal [facility] Comment on above: Order Comment: Speci men Type: BLOOD SPECIMEN Ordering Facility: [facility] Address: [address] [place] [address] Performed By: #### 5 7021-8 #### [facility] [place] [facility] CLIA [id number] [address] [place] Erythrocyte distribution width (RBC) [Ratio] 11.9 % Normal 11.5-15.0 [facility] Comment on above: Order Comment: Speci men Type: BLOOD SPECIMEN Ordering Facility: [facility] Address: [address] [place] [address] Performed By: #### 5 7021-8 #### [facility] [place] [facility] CLIA [id number] [address] [place] [address] [place] Hematocrit (Bld) [Volume fraction] 41.0 % Normal 36.0-46.0 [facility] Comment on above: Order Comment: Speci men Type: BLOOD SPECIMEN Ordering Facility: [facility] Address: [address] [place] [address] Performed By: #### 5 7021-8 #### [facility] [place] [facility] CLIA [id number] [address] [place] [address] [place] Hemoglobin (Bld) [Mass/Vol] 14.0 g/dL Normal 11.5-15.5 [facility] Comment on above: Order Comment: Speci men Type: BLOOD SPECIMEN Ordering Facility: [facility] Address: [address] [place] [address] Performed By: #### 5 7021-8 #### [facility] [place] [facility] CLIA [id number] [address] [place] Immature granulocytes (Bld) [#/Vol] 10*3/uL Normal <0.10 [facility] Comment on above: Order Comment: Speci men Type: BLOOD SPECIMEN Ordering Facility: [facility] Address: [address] [place] [address] Performed By: #### 5 7021-8 #### [facility] [place] [facility] CLIA [id number] [address] [facility] Immature granulocytes/100 WBC (Bld) 0.1 % Normal [facility] Comment on above: Order Comment: Speci men Type: BLOOD SPECIMEN Ordering Facility: [facility] Address: [address] [place] [address] Performed By: #### 5 7021-8 #### [facility] [place] [facility] CLIA [id number] [address] [place] Lymphocytes (Bld) [#/Vol] 1.96 10*3/uL Normal 1.00-4.00 [facility] Comment on above: Order Comment: Speci men Type: BLOOD SPECIMEN Ordering Facility: [facility] Address: [address] [place] [address] Performed By: #### 5 7021-8 #### [facility] [place] [facility] CLIA [id number] [address] [place] [address] Lymphocytes/100 WBC (Bld) 22.5 % Normal [facility] Comment on above: Order Comment: Speci men Type: BLOOD SPECIMEN Ordering Facility: [facility] Address: [address] [place] [address] Performed By: #### 5 7021-8 #### [facility] [place] [facility] CLIA [id number] [address] [place] [address] [place] MCH (RBC) [Entitic mass] 32.2 pg Normal 26.0-34.0 [facility] Comment on above: Order Comment: Speci men Type: BLOOD SPECIMEN Ordering Facility: [facility] Address: [address] [place] [address] Performed By: #### 5 7021-8 #### [facility] [place] [facility] CLIA [id number] [address] [place] [address] [place] MCHC (RBC) [Mass/Vol] 34.1 g/dL Normal 30.5-36.0 [facility] Comment on above: Order Comment: Speci men Type: BLOOD SPECIMEN Ordering Facility: [facility] Address: [address] [place] [address] Performed By: #### 5 7021-8 #### [facility] [place] [facility] CLIA [id number] [address] [place] MCV (RBC) [Entitic vol] 94.3 fL Normal 80.0-100.0 [facility] Comment on above: Order Comment: Speci men Type: BLOOD SPECIMEN Ordering Facility: [facility] Address: [address] [place] [address] Performed By: #### 5 7021-8 #### [facility] [place] [facility] CLIA [id number] [address] [place] Monocytes (Bld) [#/Vol] 0.53 10*3/uL Normal <0.87 [facility] Comment on above: Order Comment: Speci men Type: BLOOD SPECIMEN Ordering Facility: [facility] Address: [address] [place] [address] Performed By: #### 5 7021-8 #### [facility] [place] [facility] CLIA [id number] [address] [place] Monocytes/100 WBC (Bld) 6.1 % Normal [facility] Comment on above: Order Comment: Speci men Type: BLOOD SPECIMEN Ordering Facility: [facility] Address: [address] [place] [address] Performed By: #### 5 7021-8 #### [facility] [place] [facility] CLIA [id number] [address] [place] [address] [place] Neutrophils (Bld) [#/Vol] 6.01 10*3/uL Normal 1.45-7.50 [facility] Comment on above: Order Comment: Speci men Type: BLOOD SPECIMEN Ordering Facility: [facility] Address: [address] [place] [address] Performed By: #### 5 7021-8 #### [facility] [place] [facility] CLIA [id number] [address] [place] [address] [place] Neutrophils/100 WBC (Bld) 68.9 % Normal [facility] Comment on above: Order Comment: Speci men Type: BLOOD SPECIMEN Ordering Facility: [facility] Address: [address] [place] [address] Performed By: #### 5 7021-8 #### [facility] [place] [facility] CLIA [id number] [address] [place] [address] [place] Nucleated RBC (Bld) [#/Vol] Normal [facility] Comment on above: Order Comment: Speci men Type: BLOOD SPECIMEN Ordering Facility: [facility] Address: [address] [place] [address] Performed By: #### 5 7021-8 #### [facility] [place] [facility] CLIA [id number] [address] [place] [address] [place] Nucleated RBC/100 WBC (Bld) [Ratio] Normal [facility] Comment on above: Order Comment: Speci men Type: BLOOD SPECIMEN Ordering Facility: [facility] Address: [address] [place] [address] Performed By: #### 5 7021-8 #### [facility] [place] [facility] CLIA [id number] [address] [place] [address] [place] Platelet mean volume (Bld) [Entitic vol] 9.9 fL Normal 9.0-12.7 [facility] Comment on above: Order Comment: Speci men Type: BLOOD SPECIMEN Ordering Facility: [facility] Address: [address] [place] [address] Performed By: #### 5 7021-8 #### [facility] [place] [facility] CLIA [id number] [address] [place] [address] [place] Platelets (Bld) [#/Vol] 240 10*3/uL Normal 150-400 [facility] Comment on above: Order Comment: Speci men Type: BLOOD SPECIMEN Ordering Facility: [facility] Address: [address] [place] [place] [address] Performed By: #### 5 7021-8 #### [facility] [place] [facility] CLIA [id number] [address] [place] [address] [place] [facility] [place] RBC (Bld) [#/Vol] 4.35 10*6/uL Normal 3.90-5.20 [facility] Comment on above: Order Comment: Speci men Type: BLOOD SPECIMEN Ordering Facility: [facility] Address: [address] [place] [address] Performed By: #### 5 7021-8 #### [facility] CLIA [id number] [address] [place] [address] [facility] WBC (Bld) [#/Vol] 8.72 10*3/uL Normal 3.70-11.00 [facility] Comment on above: Order Comment: Speci men Type: BLOOD SPECIMEN Ordering Facility: [facility] Address: [address] [place] [address] Performed By: #### 5 7021-8 #### [facility] CLIA [id number] [address] [place], [place] [id number] [facility] ED NOTEon 06-11-2022 ED NOTE HNO ID: [id number] Author: Marce Heath RN Service: Emergency Medicine [...] but is able to manage secretions. Normal [facility] ED PROV NOTEon 06-11-2022 ED PROV NOTE HNO ID: [id number] Author: Mima Adan DO Service: Emergency Medicine [...] nursing note reviewed. Exam conducted with a electrical tryout person present. Constitutional: General: She is not in [...] the amy (more content not included)... Normal [facility] HIGH SENSITIVITY TROPONIN To n 06-11-2022 HIGH SENSITIVITY KAYLEE <6 Normal <12 [facility] Comment on above: Order Comment: Speci men Type: BLOOD SPECIMEN Ordering Facility: [facility] Address: [address] [place], [place] [address] [address] Result Comment: When assessing risk for acute [...] MACE. Performed By: #### H STNT #### [facility] CLIA [id number] [address] [place] [id number] [facility] XR CHEST 2V FRONTAL/LATon XR CHEST 2V [...] No radiographic evidence of acute cardiopulmonary process. 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 Transcribe Date/Time: Jun 11 2022 8:20P Dictated by : ERIN SOLARES MD This examination was interpreted and the report reviewed and electronically signed by: ERIN SOLARES MD on Jun 11 2022 8:23PM EST [id number] Normal [facility] CBC (INCLUDES DIFF/PLT)on Basophils (Bld) [#/Vol] 0.084 10*3/uL Normal 0-200 [facility] Comment on above: Performed By: #### 1 0231, 9767 #### [facility] [address] [place] [address], [address] [place] [address] Dredge Engineer: Jeffery Ibarra MD Basophils/100 WBC (Bld) 0.9 % Normal [facility] Comment on above: Performed By: #### 1 0231, 6399 #### [facility] of [place] [address] Dredge Engineer: Jeffery Ibarra MD Eosinophils (Bld) [#/Vol] 0.223 10*3/uL Normal 15-500 [facility] Comment on above: Performed By: #### 1 0231, 6399 #### [facility] [place] [address] Dredge Engineer: Jeffery Ibarra MD Eosinophils/100 WBC (Bld) 2.4 % Normal [facility] Comment on above: Performed By: #### 1 0231, 6399 #### [facility] [place] [address] Dredge Engineer: Jeffery Ibarra MD Erythrocyte distribution width (RBC) [Ratio] 12.0 % Normal 11.0-15.0 [facility] Comment on above: Performed By: #### 1 023, 6399 #### [facility] [place] [address] Dredge Engineer: Jeffery Ibarra MD Hematocrit (Bld) [Volume fraction] 42.3 % Normal 35.0-45.0 [facility] Comment on above: Performed By: #### 1 023, 6399 #### [facility] [place] [address] Dredge Engineer: Jeffery Ibarra MD Hemoglobin (Bld) [Mass/Vol] 14.5 g/dL Normal 11.7-15.5 [facility] Comment on above: Performed By: #### 1 0231, 6399 #### [facility] [place] [address] Dredge Engineer: Jeffery Ibarra MD Lymphocytes (Bld) [#/Vol] 1.841 10*3/uL Normal 850-3900 [facility] Comment on above: Performed By: #### 1 0231, 6399 #### [facility] of [address] [place] [address] Dredge Engineer: Jeffery Ibarra MD Lymphocytes/100 WBC (Bld) 19.8 % Normal [facility] Comment on above: Performed By: #### 1 0231, 6399 #### [facility] [place] [address] Dredge Engineer: Jeffery Ibarra MD MCH (RBC) [Entitic mass] 31.9 pg Normal 27.0-33.0 [facility] Comment on above: Performed By: #### 1 0231, 6399 #### [facility] [place] [address] Dredge Engineer: Jeffery Ibarra MD MCHC (RBC) [Mass/Vol] 34.3 g/dL Normal 32.0-36.[address] [facility] Comment on above: Performed By: #### 1 1, 6399 #### [facility] [place] [address] Dredge Engineer: Jeffery Ibarra MD MCV (RBC) [Entitic vol] 93.2 fL Normal 80.0-100.0 [facility] Comment on above: Performed By: #### 1 0231, 6399 #### [facility] [place] [address] Dredge Engineer: Jeffery Ibarra MD Monocytes (Bld) [#/Vol] 0.642 10*3/uL Normal 200-950 [facility] Comment on above: Performed By: #### 1 0231, 6399 #### [facility] [place] [address] Dredge Engineer: Jeffery Ibarra MD Monocytes/100 WBC (Bld) 6.9 % Normal [facility] Comment on above: Performed By: #### 1 0231, 6399 #### [facility] [place] [address] Dredge Engineer: Jeffery Ibarra MD Neutrophils (Bld) [#/Vol] 6.51 10*3/uL Normal 4092-0446 [facility] Comment on above: Performed By: #### 1 0231, 6399 #### [facility] [place] [address] Dredge Engineer: Jeffery Ibarra MD Neutrophils/100 WBC (Bld) 70 % Normal [facility] Comment on above: Performed By: #### 1 0231, 6399 #### [facility] of [address], [address] [place] [address] Dredge Engineer: Jeffery Ibarra MD Platelet mean volume (Bld) [Entitic vol] 10.2 fL Normal 7.5-12.5 [facility] Comment on above: Performed By: #### 1 0231, 6399 #### [facility] [place] [address] Dredge Engineer: Jeffery Ibarra MD Platelets (Bld) [#/Vol] 290 10*3/uL Normal 140-400 [facility] Comment on above: Performed By: #### 1 0231, 6399 #### [facility] of [address], [address] [place] [address] Dredge Engineer: Jeffery Ibarra MD RBC (Bld) [#/Vol] 4.54 10*6/uL Normal 3.80-5.10 [facility] Comment on above: Performed By: #### 1 0231, 6399 #### [facility] [place] [address] Dredge Engineer: Jeffery Ibarra MD WBC (Bld) [#/Vol] 9.3 10*3/uL Normal 3.8-10.8 [facility] Comment on above: Performed By: #### 1 0231, 6399 #### [facility] [place] [address] Dredge Engineer: Jeffery Ibarra MD COMPREHENSIVE METABOLIC PANE [facility] 08-16-2020 Albumin [Mass/Vol] 4.1 g/dL Normal 3.6-5.1 [facility] Comment on above: Performed By: #### 1 0231, 6399 #### [facility] of [address], [address] [place] [address] Dredge Engineer: Jeffery Ibarra MD Albumin/Globulin [Mass ratio] 1.8 {ratio} Normal 1.0-2.5 [facility] Comment on above: Performed By: #### 1 0231, 6399 #### [facility] of [address], [address] [place] [address] Dredge Engineer: Jeffery Ibarra MD ALP [Catalytic activity/Vol] 38 U/L Normal 31-125 [facility] Comment on above: Performed By: #### 1 0231, 6399 #### [facility] of [address], [address] [place] [address] Dredge Engineer: Jeffery Ibarra MD ALT [Catalytic activity/Vol] 13 U/L Normal 6-29 [facility] Comment on above: Performed By: #### 1 0231, 6399 #### [facility] of [address], [address] [place] [address] Dredge Engineer: Jeffery Ibarra MD AST [Catalytic activity/Vol] 12 U/L Normal 10-30 [facility] Comment on above: Performed By: #### 1 0231, 6399 #### [facility] of [address], [address] [place] [address] Dredge Engineer: Jeffery Ibarra MD Bilirubin [Mass/Vol] 1.2 mg/dL Normal 0.2-1.2 [facility] Comment on above: Performed By: #### 1 0231, 6399 #### [facility] of [address], [address] [place] [address] Dredge Engineer: Jeffery Ibarra MD BUN/CREATININE RATIO NOT APPLICABLE Normal 6-22 [facility] Comment on above: Performed By: #### 1 0231, 6399 #### [facility] of [address], [address] [place] [address] Dredge Engineer: Jeffery Ibarra MD Calcium [Mass/Vol] 9.2 mg/dL Normal 8.6-10.2 [facility] Comment on above: Performed By: #### 1 0231, 6399 #### [facility] [place] [address] Dredge Engineer: Jeffery Ibarra MD Chloride [Moles/Vol] 107 mmol/L Normal 98-110 [facility] Comment on above: Performed By: #### 1 0231, 6399 #### [facility] [place] [address] Dredge Engineer: Jeffery Ibarra MD CO2 [Moles/Vol] 24 mmol/L Normal 20-32 [facility] Comment on above: Performed By: #### 1 0231, 6399 #### [facility] [place] [address] Dredge Engineer: Jeffery Ibarra MD Creatinine [Mass/Vol] 0.88 mg/dL Normal 0.50-1.[address] [facility] Comment on above: Performed By: #### 1 0231, 6399 #### [facility] [place] [address] Dredge Engineer: Jeffery Ibarra MD eGFR NON-AFR. BARBADIAN 86 mL/min/1.73m2 Normal > OR = 60 [facility] Comment on above: Performed By: #### 1 023, 6399 #### [facility] [place] [address] Dredge Engineer: Jeffery Ibarra MD GFR/1.73 sq M.predicted among blacks MDRD (S/P/Bld) [Vol rate/Area] 99 mL/min/{1.73_m2} Normal > OR = 60 [facility] Comment on above: Performed By: #### 1 0231, 6399 #### [facility] [place] [address] Dredge Engineer: Jeffery Ibarra MD Globulin (S) [Mass/Vol] 2.3 g/dL Normal 1.9-3.7 [facility] Comment on above: Performed By: #### 1 0231, 6399 #### [facility] [place] [address] Dredge Engineer: Jeffery Ibarra MD Glucose [Mass/Vol] 103 mg/dL High 65-99 [facility] Comment on above: Result Comment: Fasting reference interval For someone without known diabetes, a glucose value between 100 and 125 mg/dL is consistent with prediabetes and should be confirmed with a follow-up test. Performed By: #### 1 0231, 6399 #### [facility] [place] [address] Dredge Engineer: Jeffery Ibarra MD Potassium [Moles/Vol] 4.1 mmol/L Normal 3.5-5.[address] [facility] Comment on above: Performed By: #### 1 0231, 6399 #### [facility] [place] [address] Dredge Engineer: Jeffery Ibarra MD Protein [Mass/Vol] 6.4 g/dL Normal 6.1-8.1 [facility] Comment on above: Performed By: #### 1 0231, 6399 #### [facility] [place] [address] Dredge Engineer: Jeffery Ibarra MD Sodium [Moles/Vol] 139 mmol/L Normal 135-146 [facility] Comment on above: Performed By: #### 1 0231, 6399 #### [facility] [place] [address] Dredge Engineer: Jeffery Ibarra MD Urea nitrogen [Mass/Vol] 17 mg/dL Normal 7-25 [facility] Comment on above: Performed By: #### 1 0231, 6399 #### [facility] [place] [address] Dredge Engineer: Jeffery Ibarra MD US Abdomen Limitedon 018 US Abdomen Limited Patient Name: COBRY ARCEO Ultrasound Exam Date/Time 07/04/2017 07:50:22 EDT Exam US Abdomen Limited Ordering Physician NELLI PENNY ANDREA Accession Number [id number] CPT4 Codes 80536 () Reason For Exam abd pain Report [...] Transcribed Date and Time: 07/04/2017 8:05 Normal [facility] Vital Signs Date Time Vital Sign Value Performing Clinician Facility 09-30-2024 08:44-0400 Body height 149.9 cm Yoandy Rainey PA-C Work Phone: [facility] 09-30-2024 08:44-0400 Body mass index (BMI) [Ratio] 26.26 kg/m2 Yoandy Rainey PA-C Work Phone: [facility] 09-30-2024 08:44-0400 Body temperature 98.29 [degF] Yoandy Rainey PA-C Work Phone: [facility] 09-30-2024 08:44-0400 Body weight 58.97 kg Yoandy Saurav PA-C Work Phone: [facility] 09-30-2024 08:44-0400 Diastolic blood pressure 66 mm[Hg] Yoandy Saurav PA-C Work Phone: [facility] 09-30-2024 08:44-0400 Heart rate 68 /min Yoandy Saurav PA-C Work Phone: [facility] 09-30-2024 08:44-0400 Respiratory rate 16 /min Yoandy Saurav PA-C Work Phone: [facility] 09-30-2024 08:44-0400 SaO2% (BldA) [Mass fraction] 100 % Yoandy Saurav PA-C Work Phone: [facility] 09-30-2024 08:44-0400 Systolic blood pressure 101 mm[Hg] Yoandy Saurav PA-C Work Phone: [facility] 06-18-2024 08:44-0400 Body height 149.86 cm Angel ADAMS Work Phone: [facility] 06-18-2024 08:44-0400 Body mass index (BMI) [Ratio] 26.5 kg/m2 Angel Penny PA Work Phone: [facility] 06-18-2024 08:44-0400 Body weight 59.59 kg Angel Penny PA Work Phone: [facility] 06-18-2024 08:44-0400 Diastolic blood pressure 77 mm[Hg] Angel Penny PA Work Phone: [facility] 06-18-2024 08:44-0400 Systolic blood pressure 116 mm[Hg] Angel Penny PA Work Phone: [facility] 03-23-2024 08:09-0500 Body height 149.9 cm Linden Tohmason MD Work Phone: [facility] 03-23-2024 08:09-0500 Body mass index (BMI) [Ratio] 26.26 kg/m2 Linden Thomason MD Work Phone: [facility] 03-23-2024 08:09-0500 Body weight 58.97 kg Linden Thomason MD Work Phone: [facility] Encounters Encounter Date Encounter Type Care Provider Facility Start: 12-25-2024 ambulatory Angel ADAMS Fac ility:[facility] Start: 12-21-2024 ambulatory Angel ADAMS Fac ility:[facility] Start: 12-21-2024 End: 12-21-2024 ambulatory Angel ADAMS [place] Start: 12-08-2024 End: 12-08-[address] Brandie Watt MD -[facility] Work Phone: Start: 12-08-2024 End: 12-08-2024 ambulatory Angel ADAMS Work Phone: [facility] Start: 09-30-2024 End: 09-30-2024 Office outpatient new 45 minutes Yoandy Rainey PA-C Work Phone: [facility] Comment on above: Acute right-sided lo w back pain with right-sided sciatica (Primary Dx) Start: 08-25-2024 ambulatory Angel ADAMS Fac ility[place] Start: 06-23-2024 End: 06-23-2024 ambulatory Angel ADAMS Work Phone: [facility] Work Phone: Start: 06-23-2024 End: 06-23-2024 Patient encounter procedure Patsy COSBY -[facility] Work Phone: Start: 06-23-2024 End: 06-23-2024 ambulatory Patsy Mcpherson Facility:[facility] Start: 06-18-2024 End: 06-18-2024 Patient encounter procedure Patsy COSBY -[facility] Work Phone: Start: 06-18-2024 End: 06-18-2024 Patient encounter status Patsy Mcpherson PARA PROFESSIONAL-C [facility] Start: 06-18-2024 End: 06-18-2024 ambulatory Angel ADAMS Work Phone: [facility] Work Phone: Start: 06-18-2024 End: 06-18-2024 ambulatory Patsy Mcpherson Facility:[facility] Start: 06-12-2024 End: 06-12-2024 Subsequent hospital visit by physician [facility] Comment on above: Arrived Start: 06-12-2024 End: 06-12-2024 Office outpatient visit 25 minutes Linden Thomason MD Work Phone: [facility] Comment on above: Right tennis elbow ( Primary Dx) Start: 03-23-2024 End: 03-23-2024 Office outpatient visit 25 minutes Linden Thomason MD Work Phone: [facility] Comment on above: Right tennis elbow ( Primary Dx); Right elbow pain Start: 03-23-2024 ambulatory ANGEL THOMASON MD~[id number] [facility] Start: 03-20-2024 End: 03-20-2024 Subsequent hospital visit by physician Anastasia Mcmillan110 X-Ray 1 [facility] Comment on above: Right elbow pain Start: 07-24-2023 End: 07-24-2023 Office outpatient visit 15 minutes Terrance Kauffman MD Work Phone: [facility] Comment on above: Tendinopathy of righ t gluteus medius Start: 07-24-2023 End: 07-24-2023 Subsequent hospital visit by physician [facility] Care Ultrasound [facility] Comment on above: Arrived Start: 07-09-2023 End: 07-09-2023 Subsequent hospital visit by physician Anastasia Mcmillan [facility] Comment on above: Trochanteric bursiti s of left hip Start: 06-26-2023 End: 06-26-2023 Phys/qhp telephone evaluation 5-10 min Terrance Kauffman MD Work Phone: [facility] Comment on above: Trochanteric bursiti s of left hip Start: 06-10-2023 End: 06-10-2023 Office outpatient visit 15 minutes Terrance Kauffman MD Work Phone: [facility] Comment on above: Femoral acetabular i mpingement (Primary Dx); Trochanteric bursitis of left hip Start: 05-06-2023 End: 07-15-2023 ambulatory ANGEL PENNY Facility:[facility] Start: 04-22-2023 End: 04-22-2023 Office outpatient new 45 minutes Terrance Kauffman MD Work Phone: [facility] Comment on above: Femoral acetabular i mpingement (Primary Dx); Right hip pain Start: 01-14-2023 End: 03-14-2023 ambulatory ANGEL SKELTONNIMESH Facility:[facility] Start: 12-10-2022 ambulatory ANGEL PAINTINGLAM Faci lity:[facility] Start: 11-28-2022 End: 11-29-2022 [facility] Start: 09-17-2022 End: 09-17-2022 ambulatory CONRAD THOMPSON Facility:[facility] Start: 08-13-2022 End: 08-14-2022 ambulatory COLIN STEIN MD Facility:[facility] Start: 07-31-2022 End: 08-01-2022 ambulatory ANGEL PENNY Facility:[id number] Start: 07-19-2022 End: 07-20-2022 [facility] Start: 06-11-2022 End: 06-11-2022 Emergency department patient visit CONRAD THOMPSON [facility] Start: 07-04-2017 [facility] Date Procedure Procedure Detail [...] 60+ years (1 - 1-dose 60+ series) [facility] Start: 2036 Zoster Vaccines (1 o f 2) Zoster Vaccines (1 of 2) [facility] Start: 11-30-2024 Influenza vaccination Influenza Vacc ine (#1) [facility] Start: 06-18-2024 Liquid based cervica l cytology screening [facility] Start: 05-15-2024 End: 05-15-2024 Patient encounter procedure 05/15/2024 8:00 AM EST Office Visit [facility] [address] [place] [address] [place] [address] [address] Department [place] [address] [facility] Start: 03-23-2024 End: 03-23-2024 Patient encounter procedure 03/23/2024 8:00 AM EST Office Visit [facility] Orthopedic Surgery [address] [place] [address] [place] [address] [address] Department [place] [address] [facility] Start: 12-01-2023 COVID-19 Vaccine ( season) COVID-19 Vaccine ( season) [facility] Start: 12-01-2023 Influenza vaccination [facility] Start: 07-10-2023 End: 07-10-2023 Telemedicine consultation with patient 07/10/2023 4:45 PM EDT Telemedicine [place] [address] [address] [facility] [address] [place] [address] [place] [address] [address] Department [place] [address] [facility] Start: 07-09-2023 End: 07-09-2023 Patient encounter procedure 07/09/2023 3:45 PM EDT Appointment [facility] [address] [facility] [address] [place] [id number] [facility] Start: 06-26-2023 End: 06-25-2024 MR Hip - right WO contrast MR hip right wo IV contrast Imaging Routine Trochanteric bursitis of left hip Expected: 06/26/2023, Expires: 06/25/2024 [facility] Service Area Work Phone: Comment on above: Expected: 06/26/2023 , Expires: 06/25/2024 Start: 11-30-2022 COVID-19 Vaccine ( season) COVID-19 Vaccine ( season) [facility] Start: 11-30-2022 Influenza vaccination Influenza Vacc ine (#1) [facility] Start: 2008 DTaP/Tdap/Td Vaccine s (1 - Tdap) DTaP/Tdap/Td Vaccines (1 - Tdap) [facility] Start: 2007 Screening for malign ant neoplasm of cervix [facility] Start: 2005 Hepatitis B Vaccines (1 of 3 - 19+ 3-dose series) Hepatitis B Vaccines (1 of 3 - 19+ 3-dose series) [facility] Start: 2004 Diabetes mellitus screening Diabetes Screening [facility] Start: 2004 Hepatitis C screening Hepatitis C Sc reening [facility] Start: 1999 Varicella vaccination Varicell a Vaccines (1 of 2 - 13+ 2-dose series) [facility] Start: 1987 MMR Vaccines (1 of 1 - Standard series) MMR Vaccines (1 of 1 - Standard series) [facility] Start: 1987 Varicella vaccination Varicell a Vaccines (1 of 2 - 2-dose childhood series) [facility] Start: 1986 Hepatitis B Vaccines (1 of 3 - 3-dose series) Hepatitis B Vaccines (1 of 3 - 3-dose series) [facility] Start: 1986 HIV screening HIV Screening [facility] Start: 1986 Lipid panel Lipid Panel [facility] Start: 1986 Yearly Adult Physical Yearly Adult P hysical [facility] Bacteria identified in Urine by Culture Urine Culture Microbiology Routine Acute right-sided low back pain with right-sided sciatica Ordered: 09/30/2024 Urgent Care Work Phone: Comment on above: Ordered: 09/30/2024 Cytology report of Cervical or vaginal smear or scraping Cyto stain.thin prep [facility] Path report.final Dx Spec [facility] End: 03-20-2024 XR Elbow - right 3 Views [facility] Service Area Work Phone: Comment on above: Once for 1 Occurrenc es starting 03/20/2024 until 03/20/2024 Payers Date Payer Category Payer Unknown [id number] 2024 Self-pay 2023 Managed Care (Private) [facility] HMO [id number] 2022 Unknown [id number] 2015 Unknown [id number] 2008 Unknown 1986 Unknown [id number] [id number]. 159 1986 Unknown [id number] 2.16840.1.494305.3.579.2. 159 1986 Unknown [id number] 2.16840.1.728274.3.579.2. 159 1986 Unknown [id number] 2.840.1.437274.3.579.2. 159 1986 Unknown [id number] 2.16840.1.286906.3.579.2. 159 1986 Unknown [id number] 2.16840.1.829353.3.579.2. 159 1986 Unknown [id number] 2.16840.1.386857.3.579.2. 159 1986 Unknown [id number] 2.16840.1.068866.3.579.2. 598 Unknown [id number] 2.16840.1.406943.3.579.2. 462 Unknown [id number] 2.16840.1.914079.3.579.2. 462 Unknown [id number] 2.16840.1.344257.3.579.2. 462 Unknown [id number] 2.16840.1.926751.3.579.2. 462 Unknown [id number] 2.16840.1.272559.3.579.2. 462 Unknown [id number] 2.16.840.1.518301.3.579.2. 462 Unknown [id number] [id number]. 462 Unknown [id number] [id number]. 462 Social History Date Type Detail Facility Tobacco smoking stat us NHIS Tobacco smoking consumption unknown [facility] Work Phone: Start: 1985 Sex Assigned At Not on file [facility] Work Phone: Start: 06-10-2023 End: 04-14-2024 Gender identity Not on file [facility] Work Phone: Start: 04-12-2023 End: 05-26-2024 Exposure to SARS-CoV-2 (event) Not sure [facility] Start: 06-10-2023 End: 06-18-2024 Tobacco smoking status NHIS Never smoked tobacco [facility] Work Phone: Start: 06-10-2023 Tobacco use and exposure Smokeless tobacco non-user [facility] Work Phone: Start: 06-10-2023 End: 04-14-2024 History of Social function [facility] Work Phone: Start: 06-16-2023 End: 06-26-2023 Exposure to SARS-CoV-2 (event) Unable to assess [facility] Start: 03-22-2024 Gender identity Identifies as female gender (finding) [facility] Start: 03-22-2024 Sexual orientation Heterosexual (finding) [facility] Work Phone: Start: 06-26-2024 End: 06-29-2024 Sex Female (finding) [facility] Start: 1985 Sex Assigned At Female [facility] Start: 12-08-2024 Tobacco smoking status NHIS Ex-smoker (finding) [facility] Clinical Notes 07-31-2022 to 09-30-2024 Yoandy Rainey [...] No follow-ups on file. Electronically signed by Yonady Rainey PA-C 8:53 AM [1] (Not in a hospital admission) [2] No past medical history on file. [3] No past surgical history on file. documented in this encounter [facility] Work Phone: 06-24-2024 Radiology Diagnostic study note [facility] [facility] [address] [place] [address] [id number] Pelvic w/ Transvaginal MR#: [id number] Acct: [id number] Name: CORBY HENDRICKSON Rep #: [id number] : 1985 F 39 From: Con Ocampo MD PCP: BRYAN Daley Status: REG C LI Study:Pelvic w/ Transvaginal Date of Exam: 06/23/24 Exam# [id number] Ordering Dr: Patsy Mcpherson PARA PROFESSIONALViktoriya EXAM: Pelvic ultrasound CLINICAL HISTORY: Infertility COMPARISON: [...] IMPRESSION: No suspicious sonographic findings. 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 [...] called to verify the correctpatient, procedure, equipment, support specialist and site/side marked as required. Patient was [...] to prepare this document. Linden Thomason MD [facility] Work Phone: 1([phone]) 806-266612-23-2024 History of Present illness Narrative* Linden Thomason MD - 03/23/2024 8:00 AM EST Images from the original note were not included. Subjective Patient ID: Corby HENDRICKSON is a 38 y.o. female. 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 [...] in right elbow COMPARISON: None. ACCESSION NUMBER(S): [id number] ORDERING CLINICIAN: LINDEN THOMASON FINDINGS: Right elbow, [...] Paul Gina 03/21/2024 12:23 PM Dictation workstation: [id number] X-rays of the right elbow were reviewed [...] to prepare this document. Linden Thomason MD [facility] Work Phone: 1(264) 178-832204-24-2024 History of Present illness Narrative* Ilia Swartz [...] Ilia Swartz D.O. Terrance Kauffman M.D. Clinical Face Hardener, Division of Sports Medicine Primary Care Sports Medicine Department of Orthopedic Surgery [facility] Sports [facility] documented [facility] Work Phone: [phone]) 264-869004-15-2024 NotePT Outpatient Progress Note Entered On: 06/03/2023 10:15 EST Performed On: 06/03/2023 8:49 EST by aSroj Dorantes PTA Review/Treatments Provided Total Visit Count [...] decreased reps due to pain 05/27/23 [employer] CAM[employer] MANAGEMENT SPECIALIST, 06/03/2023 8:49 EST [employer] CAMPA[employer] MANAGEMENT SPECIALIST, Saroj - 06/03/2023 8:49 EST [employer] CAMPA[employer] MANAGEMENT SPECIALIST, Saroj - 06/03/2023 8:49 EST [employer] CAMPA[employer] MANAGEMENT SPECIALIST, 06/03/2023 8:49 EST Exercise 9 Exercise 10 Exercise 11 Exercise 12 Exercise : SLR - abduction series SLR - extension Prone Quad stretch Supine hamstring stretch Repetition/Time : x 15 EA 3 x 15 sec 3 x 15 sec Resist or Assist : 0# Not Performed : X X HEP Given : Yes Comment : 05/27/23, Add knee bent 06/03/23 05/27/23 05/06/23 [employer]PA[employer] MANAGEMENT SPECIALIST, 06/03/2023 8:49 EST [employer] CAMPAIGN MANAGEMENT SPECIALIST, 06/03/2023 8:49 EST [employer] CAMPAIGN MANAGEMENT SPECIALIST, 06/03/2023 8:49 EST [employer] CAMPAIGN MANAGEMENT SPECIALIST, 06/03/2023 8:49 EST Exercise 13 Exercise 15 [...] Comment : 05/20/23 05/13/23 05/13/23 05/13/23 [employer] CAMPAIGN MANAGEMENT SPECIALIST, Saroj - 06/03/2023 8:49 EST [employer] CAMPAIGN MANAGEMENT SPECIALIST, Saroj - 06/03/2023 8:49 EST [employer] CAMPAIGN MANAGEMENT SPECIALIST, Saroj - 06/03/2023 8:49 EST [employer] CAMPAIGN MANAGEMENT SPECIALIST, 06/03/2023 8:49 EST Exercise 18 Exercise 19 [...] Descriptor : R h (more content not included)...[facility] 07-15-2023 NotePT Outpatient Progress Note Entered On: [...] decreased reps due to pain 05/27/23 [employer] CAMPAIGN MANAGEMENT SPECIALIST, 05/27/2023 9:06 EST [employer] CAMPAIGN MANAGEMENT SPECIALIST, 05/27/2023 9:06 EST [employer] CAMPAIGN MANAGEMENT SPECIALIST, 05/27/2023 9:06 EST [employer] CAMPAIGN MANAGEMENT SPECIALIST, 05/27/2023 9:06 EST Exercise 9 Exercise 10 Exercise 11 Exercise 12 Exercise : SLR - abduction series SLR - extension Prone Quad stretch Supine hamstring stretch Repetition/Time : x 15 3 x 15 sec 3 x 15 sec Resist or Assist : 0# Not Performed : X HEP Given : Yes Comment : 05/27/23 05/27/23 05/06/23 [employer] CAMPAIGN MANAGEMENT SPECIALIST, 05/27/2023 9:06 EST [employer] CAMPAIGN MANAGEMENT SPECIALIST, 05/27/2023 9:06 EST [employer] CAMPAIGN MANAGEMENT SPECIALIST, 05/27/2023 9:06 EST [employer] CAMPAIGN MANAGEMENT SPECIALIST, 05/27/2023 9:06 EST Exercise 13 Exercise 15 [...] Comment : 05/20/23 05/13/23 05/13/23 05/13/23 [employer] CAMPAIGN MANAGEMENT SPECIALIST, 05/27/2023 9:06 EST [employer] CAMPAIGN MANAGEMENT SPECIALIST, 05/27/2023 9:06 EST [employer] CAMPAIGN MANAGEMENT SPECIALIST, 05/27/2023 9:06 EST [employer] CAMPAIGN MANAGEMENT SPECIALIST, 05/27/2023 9:06 EST Exercise 18 Exercise 19 [...] reps due to pain 05/27/23 05/20/23 [employer] CAMPAIGN MANAGEMENT SPECIALIST, 05/27/2023 9:06 EST [employer] CAMPAIGN MANAGEMENT SPECIALIST, 05/27/2023 9:06 EST Jose E VIDAL 05/27/2023 9:06 EST Jose E VIDAL 05/27/2023 9:06 EST Exercise 22 Exercise 23 Exercise 24 Exercise 25 Exercise : Knee Ext Leg Press Lateral Hip Check Gluteus Medius isometric Repetition/Time : Resist or Assist : Not Performed : HEP Given : Comment : Jose E VIDAL 05/27/2023 9:06 EST Jose E [facility] 05/27/2023 9:06 EST Jose E VIDAL [...] ther ex Performed Date: 05/20/2023 [facility] - 05/27/2023 9:06 EST Neuromuscular Reeducation Activity [...] traction. Not performed 05/27 (more content not included)...[facility]03-27-2024 History of Present illness Narrative* Terrance Kauffman [...] prepare this document. Terrance Kauffman M.D. Clinical Face Hardener, Division of Sports Medicine Primary Care Sports Medicine Department of Orthopedic Surgery [facility] Sports Medicine [place] documented in this [facility] Work Phone: [phone]) 273-804803-11-2024 History of Present illness Narrative* Uday Hernandez, [...] called to verify the correctpatient, procedure, equipment, support specialist and site/side marked as required. Patient was [...] surgery. Uday Hernandez DO Sports Medicine Fellow [facility] Associated attestation - Terrance Kauffman MD - [...] Uday Hernandez D.O. Terrance Kauffman M.D. Clinical Face Hardener, Division of Sports Medicine Primary Care Sports Medicine Department of Orthopedic Surgery [facility] documented in this [facility] Work Phone: 1([phone]) 345-627802-19-2024 NotePT Outpatient Progress Note Entered On: 05/20/2023 [...] Self care, Symptom managem (more content not included)...[facility]02-12-2024 NotePT Outpatient Progress Note Entered On: 05/13/2023 [...] Posture, Precautions reviewed, Self care, Symptom management Christine Jang PT - 05/13/2023 8:41 EST Assessment [...] pt able to c (more content not included)...[facility]02-05-2024 NotePT Outpatient Evaluation Entered On: 05/06/2023 9:34 [...] 11:20:18 EST) Problems(Active) Acid reflux (SNOMED CT :802133837 ) Name of Problem: Acid reflux ; Recorder: COLIN STEIN MD; Confirmation: Confirmed ; Classification: Medical ; Code: [id number] ; Contributor System: Ynvisible ; Last Updated: 07/19/2022 13:30 EDT ; Life Cycle Date: 07/19/2022 ; Life Cycle Status: Active ; Responsible Provider: COLIN HARDY MD; Vocabulary: SNOMED CT Esophageal pain (SNOMED CT :082376617 ) Name of Problem: Esophageal pain ; Recorder: COLIN STEIN MD; Confirmation: Confirmed ; Classification: Medical ; Code: [id number] ; Contributor System: Ynvisible ; Last Updated:07/19/2022 13:30 EDT ; Life [...] Spouse Patient's Responsibilities Rehab : Community mobility, Marketing Regional Consultant, 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 04-22-2023 History of Present illness Narrative* Uday [...] office. Uday Hernandez DO Sports Medicine Fellow [facility] Associated attestation - Terrance Kauffman MD - [...] Uday Hernandez D.O. Terrance Kauffman M.D. 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 Pt referred to PT by her Stock Car Driver. Visit Count Reviewed? : Yes Christine Jang [...] 17:08:39 EDT) Problems(Active) Acid reflux (SNOMED CT :656151990 ) Name of Problem: Acid reflux ; Recorder: COLIN STEIN MD; Confirmation: Confirmed ; Classification: Medical ; Code: [id number] ; Contributor System: Ynvisible ; Last Updated: 07/19/2022 13:30 EDT ; Life Cycle Date: 07/19/2022 ; Life Cycle Status: Active ; Responsible Provider: COLIN HARDY MD; Vocabulary: SNOMED CT Esophageal pain (SNOMED CT :134802364 ) Name of Problem: Esophageal pain ; Recorder: COLIN STEIN MD; Confirmation: Confirmed ; Classification: Medical ; Code: [id number] ; Contributor System: Ynvisible ; Last Updated:07/19/2022 13:30 EDT ; Life [...] home Patient's Responsibilities Rehab : Community mobility, Marketing Regional Consultant, Employed, Home management, Laundry, Leisure/Play/Hobbies, Meal preparation, Personal ADL, Shopping, Social participation, Volunteer, Other: running 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 07-31-2022 NotePatient Education Material Gastrointestinal Hiatal Hernia: [...] for pain. ? Your doctor may recommend dvgz-ark-zbkfekx medicine. For mild or occasional indigestion, antacidssuch as Tums, Gaviscon, Maalox, or Mylanta may help. Your doctor also may recommend pfze-jxp-swhhwjh acid reducers, such as famotidine (Pepcid AC), [...] Where can you learn more? Go to [email or web address] Enter T074 in the search box to learn more about Hiatal Hernia: Care Instructions. Current as of: December 07, 2020 Content Version: 13.3 ? [employer]. Care instructions adapted under license by your healthcare professional. If you have questions about a medical condition or this instruction, always ask your healthcare professional. [employer] disclaims any warranty or liability for your [...] Do not take any other medicine, including foaz-ilf-fxktsql pain relievers, without talking to your doctor first. ? If your doctor recommends zvze-imm-mjftinn medicine to reduce stomach acid, such as Pepcid AC (famotidine), Prilosec (omeprazole), or Tagamet HB (cimetidine) follow the directions on the la (more content not included)... [facility]05-02-2023 NoteNursing Discharge Summary Entered On: 07/31/2022 12:07 [...] understanding Julia Guerrero RN - 07/31/2022 12:07 EDTSUniversity [facility]als Ely[facility] CenterChief complaint+Reason for visit Narrative* Chief Complaint Admit Date PNOB Vitals & Education December 08, 2 025 9:02am [employer] [facility] Work Phone: Evaluation note* Diagnosis Femoral acetabular impingement- Primary Right hip pain Pain in joint, pelvic region and thigh Right hip pain Pain in joint, pelvic region and thigh documented in this encounter [facility] Work Phone: [phone] note* Diagnosis Femoral acetabular impingement- Primary Trochanteric bursitis of left hip documented in this encounter [facility] Work Phone: [phone] note* Diagnosis Trochanteric bursitis of left hip documented in this encounter [facility] Work Phone: [phone] note* Diagnosis Trochanteric bursitis of left hip documented in this encounter [facility] Work Phone: [phone] note* Diagnosis Trochanteric bursitis of left hip documented in this encounter [facility] Work Phone: [phone] note* Diagnosis Tendinopathy of right gluteus medius documented in this encounter [facility] Work Phone: [phone] note* Diagnosis Right elbow pain Pain in joint, upper arm Right elbow pain Pain in joint, upper arm documented in this encounter [facility] Work Phone: [phone] note* Diagnosis Right elbow pain Pain in joint, upper arm Right tennis elbow- Primary Right elbow pain Pain in joint, upper arm documented in this encounter [facility] Work Phone: [phone] note* Diagnosis Right tennis elbow- Primary documented in this encounter [facility] Work Phone: [phone] note* Diagnosis Acute right-sided low back pain with right-sided sciatica- Primary Acute right-sided low back pain with right-sided sciatica documented in this encounter [facility] Work Phone: Evaluation noteNo assessment information available [facility] Work Phone: Reason for referral (narrative)* Consultation (Routine) - Pending Review Specialty Diagnoses / Procedures Referred By Carlos muniz Referred To Contact Physical Therapy Diagnoses Femoral [place] [address] [address] Department [place] [address] Referral ID Status Reason Start Date Expiration Date Visits Requested Visits Authorized [id number] Pending Review Specialty Services Required 04/22/2023 04/21/2024 1 1 * Imaging (Routine) - Authorized Specialty Diagnoses / Procedures Referred By Contac t Referred To Contact Radiology Diagnoses Right hip pain Procedures XR hip right with pelvis when performed 2 or [place] [address] [address] Department [place] [address] Referral ID Status Reason Start Date Expiration Date Visits Requested Visits Authorized [id number] Authorized Perform Procedure 04/22/2023 04/21/2024 1 1 [facility] Work Phone: Reason for referral (narrative)No reason for referral information availableL[facility] Work Phone: Reason for visit Narrative* Imaging (Routine) - Authorized Specialty Diagnoses / Procedures Referred By Contac t Referred To Contact Radiology Diagnoses Right elbow pain Procedures XR elbow right 3+ [place] [address] [address] Department [place] [address] Phone: tel: fax: Referral ID Status Reason Start Date Expiration Date Visits Requested Visits Authorized [id number] Authorized Perform Procedure 4 03/17/2025 1 1 [facility] Work Phone: Summary Purpose Family History No [...] right [place] [address] [address] Department of Orthopedics [place] [id number] Referral ID Status Reason Start Date Expiration Date Visits Requested Visits Authorized [id number] Authorized Perform Procedure 06/26/2023 06/25/2024 1 1 Chief Complaint and Reason for Visit Chief Complaint 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, 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 0am INFERTILITY June 23, 2024 4:2 1pm Reason for Visit Admit Date Encounter for infertility June 18 8:30am Encounter for routine gynecological exam ination June 18, 2024 8:30am Additional Source Comments INFORMATION SOURCE (unrecogn ized section and content) DATE CREATED AUTHOR 09/19/2017 [facility] DATE CREATED AUTHOR AUTHOR'S ORGANIZ ATION 08/22/2020 [facility] DATE CREATED AUTHOR AUTHOR'S ORGANIZ ATION 06/12/2022 [facility] DATE CREATED AUTHOR AUTHOR'S ORGANIZ ATION 09/17/2022 [facility] DATE CREATED AUTHOR AUTHOR'S ORGANIZ ATION 07/16/2023 [facility] DATE CREATED AUTHOR AUTHOR'S ORGANIZ ATION 03/23/2024 [facility] DATE CREATED AUTHOR AUTHOR'S ORGANIZ ATION 10/30/2024 [facility] DATE CREATED AUTHOR AUTHOR'S ORGANIZ ATION 12/23/2024 [facility] Reason for Visit (unrecogniz ed section and content) Reason Comments Pain Reason Comments Pain Reason Comments Pain Specialty Diagnoses / Procedures Referred By Contac t Referred To Contact Radiology Diagnoses Trochanteric bursitis of left hip Procedures MR hip right [place] [address] [address] Department [place] [address] Referral ID Status Reason Start Date Expiration Date Visits Requested Visits Authorized [id number] Authorized Perform Procedure 06/26/2023 06/25/2024 1 1 [...] Care Teams (unrecognized sec tion and content) Director Of Physical Therapy Relationship Specialty Start Date End Date Angel Penny PA [address] [place] [phone] PCP - General Internal Medicine 03/23/24 Director Of Physical Therapy Relationship Specialty Start Date End Date Angel Penny PA [address] [facility] [address] [place] [phone] PCP - General Internal Medicine 03/23/24 Director Of Physical Therapy Relationship Specialty Start Date End Date Angel Penny PA [address] [place] [phone] PCP - General Internal Medicine 03/23/24 [...] June 23, 2024 End: June 23, 2024 Director Of Physical Therapy Relationship Specialty Start Date End Date Angel Penny PA-C [address] [phone] PCP - General Internal Medicine 03/23/24 Team Status: Active Member Role/Relationship Status Dates BRYAN Portillo Primary [...] BE BASED ON THE PRIMARY CLINICAL RECORDS. [employer] provides no warranty or guarantee of the accuracy or completeness of information in this document.
[2024-12-25] MEDS: 0.9% NaCl Peripheral Flush Adult IV (09:27)
[2024-12-25 10:40] VITALS: BP 102/60; PULSE 60; RESP 16; TEMP 36.6
== END 2024-12-25 23:59 | disposition home or self-care (01) ==
LOC: MEDOUTP 09:04
PROVIDERS: PCP Physician Assistant; Referring Provider Obstetrics & Gynecology; Visit Provider Obstetrics & Gynecology
DX: E86.0 Dehydration (principal)
CPT/HCPCS: 96360; A4216

== ENCOUNTER → 2025-01-18 | Outpatient (CLI) | payer OTHER, SELFPAY ==
[2025-01-18 16:11] LABS: Hematocrit 36.1 % (37-47); Hemoglobin 12.9 g/dL (12.0-15.0); Immature Granulocytes Count 0.040 X10^3/uL (0.0-0.0); Mean Corp Hgb Conc 35.7 g/dL (32-36); Mean Corpuscular Volume 90.7 fL (81-99); Mean Platelet Vol. 10.3 fl (6.2-12.0); NRBC Flagged by Analyzer 0 % (0-5); Platelet Count 195 K/mm3 (150-450); RBC Distribution Width CV 12.0 % (11.6-14.6); RBC Distribution Width SD 39.9 fl (35.1-43.9); Red Blood Count 3.98 M/mm3 (4.2-5.4); White Blood Count 9.8 K/mm3 (4.4-11.0)
[2025-01-18 16:52] LABS: HIV Nonreactive (Nonreactive); Hepatitis B Surface Antigen Nonreactive (Nonreactive); Hepatitis C Antibody Nonreactive (Nonreactive); Syphilis Antibodies Nonreactive (Nonreactive)
== END | disposition home or self-care (01) ==
LOC: LAB 15:33
PROVIDERS: Advanced Practice Midwife; PCP Physician Assistant; Referring Provider Obstetrics & Gynecology; Visit Provider Obstetrics & Gynecology
DX: O09.90 Supervision of high risk pregnancy, unspecified, unspecified trimester (principal); Z3A.00 Weeks of gestation of pregnancy not specified
CPT/HCPCS: 36415; 85025; 86703; 86762; 86780; 86803; 86850; 86900; 86901; 87340